=== PATIENT | female | born 1945 | race Caucasian/White ===

== ENCOUNTER 2017-01-10 23:48 | Observation (INO) | payer MEDICARE, BC ==
--- NOTE | 2017-01-11 00:08 | ED ---
General Adult HPI - General Chief complaint: Chest Pain Stated complaint: chest pain Time Seen by Provider: 01/10/17 23:51 Source: patient, RN notes reviewed, old records reviewed Mode of arrival: wheelchair Limitations: no limitations - History of Present Illness Initial comments: 72-year-old female with past medical history of hypertension, diabetes, and coronary artery disease status post stent in 2006 presents for evaluation of substernal chest pain. Patient describes the pain as tightness. States does radiate to her back and left shoulder. Pain began at rest while patient was watching television. He does admit to having a two-week history of cough which initially was treated as bronchitis, patient completed antibiotics and was getting better, cough has begun again over the past 24 hours. Patient took 2 sublingual nitroglycerin at home as well as 1 baby aspirin prior to arrival. Denies any nausea, denies diaphoresis. Patient has one episode of diarrhea. Patient's cough over the past 24 hours suspend nonproductive. No fever or chills. - Related Data Home Medications Medication Instructions Recorded Confirmed ALPRAZolam [Xanax] 0.25 mg PO BID PRN 01/11/17 01/11/17 Ascorbic Acid [Vitamin C] 500 mg PO QAM 01/11/17 01/11/17 Aspirin EC [Ecotrin Low Dose] 81 mg PO DAILY 01/11/17 01/11/17 Atorvastatin Calcium [Lipitor] 80 mg PO HS 01/11/17 01/11/17 Calcium Carbonate/Vitamin D3 1 tab PO HS 01/11/17 01/11/17 [Calcium 500-Vit D3 200 Tablet] Ezetimibe [Zetia] 10 mg PO QAM 01/11/17 01/11/17 Flaxseed Oil [Hancock-3 Flaxseed Oil] 1,000 mg PO QAM 01/11/17 01/11/17 Levothyroxine Sodium [Synthroid] 25 mcg PO QAM 01/11/17 01/11/17 Metoprolol Tartrate [Lopressor] 25 mg PO BID 01/11/17 01/11/17 Nitroglycerin Sl Tabs [Nitrostat] 0.4 mg SUBLINGUAL Q5M PRN 01/11/17 01/11/17 Quinapril HCl [Accupril] 40 mg PO QAM 01/11/17 01/11/17 Spironolactone-Hctz 25-25Mg 1 tab PO QAM 01/11/17 01/11/17 [Aldactazide 25-25Mg] metFORMIN HCL [Glucophage] 850 mg PO W/BRKFST 01/11/17 01/11/17 Allergies Allergy/AdvReac Type Severity Reaction Status Date / Time No Known Allergies Allergy Verified 01/11/17 00:00 Review of Systems ROS Statement: Those systems with pertinent positive or pertinent negative responses have been documented in the HPI. ROS Other: All systems not noted in ROS Statement are negative. Past Medical History Past Medical History: Diabetes Mellitus, Hyperlipidemia, Hypertension, Myocardial Infarction (MD) History of Any Multi-Drug Resistant Organisms: None Reported Past Surgical History: Heart Catheterization With Stent Past Psychological History: No Psychological Hx Reported Smoking Status: Never smoker Past Alcohol Use History: None Reported Past Drug Use History: None Reported General Exam Limitations: no limitations General appearance: alert, in no apparent distress Head exam: Present: atraumatic, normocephalic Eye exam: Present: normal appearance, PERRL ENT exam: Present: normal exam, normal oropharynx, mucous membranes moist Neck exam: Present: normal inspection. Absent: tenderness, meningismus Respiratory exam: Present: normal lung sounds bilaterally. Absent: respiratory distress, wheezes, rhonchi Cardiovascular Exam: Present: regular rate, normal rhythm GI/Abdominal exam: Present: soft. Absent: distended, tenderness Extremities exam: Present: normal inspection, normal capillary refill, pedal edema (Trace. Edema). Absent: calf tenderness Neurological exam: Present: alert, oriented X3. Absent: motor sensory deficit Psychiatric exam: Present: normal affect, normal mood Skin exam: Present: warm, dry. Absent: cyanosis, diaphoretic Course Vital Signs 01/10/17 23:55 Temperature 98.1 F Pulse Rate 85 Respiratory 24 Rate Blood Pressure 168/77 O2 Sat by Pulse 95 Oximetry - Reevaluation(s) Reevaluation #1: 01/11/17 03:01 Patient remains chest pain-free in the emergency department EKG Findings - EKG Comments: EKG Findings:: EKG shows first-degree AV block, ventricular rate 81, CA interval 220, QRS duration 96, QTC [address] segment elevation, no T-wave abnormality Medical Decision Making - Medical Decision Making 72-year-old female presents with substernal chest pain relieved by nitroglycerin. Patient does have history of bronchitis and cough. She does admit to coughing today. However pain she had was at rest but not associated with coughing. Patient is chest pain-free while in the emergency department. EKG shows normal sinus rhythm, nonischemic. Chest x-ray does show pneumonia consistent with her cough over the past week. She will be treated for pneumonia. Patient will also be placed in observation for serial cardiac enzymes and cardiology evaluation as I do not believe her chest pain is related solely to pneumonia and cough. Diagnosis: Chest pain, community acquired pneumonia - Lab Data Result diagrams: 01/11/17 00:00 01/11/17 00:00 Lab Results 01/11/17 01/11/17 01/11/17 Range/Units 00:00 00:00 00:00 WBC 6.6 (3.8-10.6) k/uL RBC 5.10 (3.80-5.40) m/uL Hgb 14.7 (11.4-16.0) gm/dL Hct 45.4 (34.0-46.0) % MCV 89.1 (80.0-100.0) fL MCH 28.9 (25.0-35.0) pg MCHC 32.4 (31.0-37.0) g/dL RDW 14.6 (11.5-15.5) % Plt Count 269 (150-450) k/uL Neutrophils % 60 % Lymphocytes % 29 % Monocytes % 6 % Eosinophils % 1 % Basophils % 1 % Neutrophils # 4.0 (1.3-7.7) k/uL Lymphocytes # 1.9 (1.0-4.8) k/uL Monocytes # 0.4 (0-1.0) k/uL Eosinophils # 0.1 (0-0.7) k/uL Basophils # 0.1 (0-0.2) k/uL PT (9.0-12.0) sec INR (<1.2) APTT (22.0-30.0) sec D-Dimer (<0.60) mg/L FEU Sodium 139 (137-145) mmol/L Potassium 4.0 (3.5-5.1) mmol/L Chloride 102 (98-107) mmol/L Carbon Dioxide 23 (22-30) mmol/L Anion Gap 14 mmol/L BUN 21 H (7-17) mg/dL Creatinine 0.70 (0.52-1.04) mg/dL Est GFR (MDRD) Af Amer >60 (>60 ml/min/1.73 sqM) Est GFR (MDRD) Non-Af >60 (>60 ml/min/1.73 sqM) Glucose 197 H (74-99) mg/dL Calcium 9.7 (8.4-10.2) mg/dL Magnesium 1.6 (1.6-2.3) mg/dL Total Bilirubin 2.2 H (0.2-1.3) mg/dL AST 81 H (14-36) U/L ALT 61 H (9-52) U/L Alkaline Phosphatase 156 H (38-126) U/L Total Creatine Kinase 55 (30-135) U/L CK-MB (CK-2) 1.6 (0.0-2.4) ng/mL CK-MB (CK-2) Rel Index 2.9 Troponin I <0.012 (0.000-0.034) ng/mL NT-Pro-B Natriuret Pep pg/mL Total Protein 6.9 (6.3-8.2) g/dL Albumin 4.3 (3.5-5.0) g/dL Amylase 52 (30-110) U/L Lipase 94 (23-300) U/L 01/11/17 01/11/17 Range/Units 00:00 00:00 WBC (3.8-10.6) k/uL RBC (3.80-5.40) m/uL Hgb (11.4-16.0) gm/dL Hct (34.0-46.0) % MCV (80.0-100.0) fL MCH (25.0-35.0) pg MCHC (31.0-37.0) g/dL RDW (11.5-15.5) % Plt Count (150-450) k/uL Neutrophils % % Lymphocytes % % Monocytes % % Eosinophils % % Basophils % % Neutrophils # (1.3-7.7) k/uL Lymphocytes # (1.0-4.8) k/uL Monocytes # (0-1.0) k/uL Eosinophils # (0-0.7) k/uL Basophils # (0-0.2) k/uL PT 12.8 H (9.0-12.0) sec INR 1.3 H (<1.2) APTT 25.9 (22.0-30.0) sec D-Dimer 0.26 (<0.60) mg/L FEU Sodium (137-145) mmol/L Potassium (3.5-5.1) mmol/L Chloride (98-107) mmol/L Carbon Dioxide (22-30) mmol/L Anion Gap mmol/L BUN (7-17) mg/dL Creatinine (0.52-1.04) mg/dL Est GFR (MDRD) Af Amer (>60 ml/min/1.73 sqM) Est GFR (MDRD) Non-Af (>60 ml/min/1.73 sqM) Glucose (74-99) mg/dL Calcium (8.4-10.2) mg/dL Magnesium (1.6-2.3) mg/dL Total Bilirubin (0.2-1.3) mg/dL AST (14-36) U/L ALT (9-52) U/L Alkaline Phosphatase (38-126) U/L Total Creatine Kinase (30-135) U/L CK-MB (CK-2) (0.0-2.4) ng/mL CK-MB (CK-2) Rel Index Troponin I (0.000-0.034) ng/mL NT-Pro-B Natriuret Pep 77 pg/mL Total Protein (6.3-8.2) g/dL Albumin (3.5-5.0) g/dL Amylase (30-110) U/L Lipase (23-300) U/L Disposition Clinical Impression: Chest pain, Community acquired pneumonia Disposition: ADMITTED IP TO THIS [facility] Condition: Stable Referrals: Jamaal Bustos MD [Primary Care Provider] - 1-2 days Decision to Admit Reason: Admit from EC Decision Date: 01/11/17 Decision Time: 02:30
[2017-01-11 00:21] LABS: Basophils # (A) 0.1 k/uL (0-0.2); Basophils % (A) 1 %; CH 30.2; CHCM 34.1; Eosinophils # (A) 0.1 k/uL (0-0.7); Eosinophils % (A) 1 %; HCT 45.4 % (34.0-46.0); HDW 2.85; HGB 14.7 gm/dL (11.4-16.0); Luc # (Auto) 0.24; Luc % (Auto) 4; Lymphocytes # (A) 1.9 k/uL (1.0-4.8); Lymphocytes % (A) 29 %; MCH 28.9 pg (25.0-35.0); MCHC 32.4 g/dL (31.0-37.0); MCV 89.1 fL (80.0-100.0); Monocytes # (A) 0.4 k/uL (0-1.0); Monocytes % (A) 6 %; Neutrophils % (A) 60 %; RDW 14.6 % (11.5-15.5); WBC 6.6 k/uL (3.8-10.6); WBC (Perox) 6.44
[2017-01-11 00:30] LABS: ALT 61 U/L (9-52); AST 81 U/L (14-36); Alkaline Phosphatase 156 U/L (38-126); Amylase 52 U/L (30-110); Anion Gap 14 mmol/L; Blood Urea Nitrogen 21 mg/dL (7-17); Calcium 9.7 mg/dL (8.4-10.2); Carbon Dioxide 23 mmol/L (22-30); Chloride 102 mmol/L (98-107); Glucose 197 mg/dL (74-99); Magnesium 1.6 mg/dL (1.6-2.3); Non-African American GFR(MDRD) >60 (>60 ml/min/1.73 sqM); Sodium 139 mmol/L (137-145); Total Bilirubin 2.2 mg/dL (0.2-1.3); Total Protein 6.9 g/dL (6.3-8.2)
[2017-01-11 00:34] LABS: INR 1.3 (<1.2); Partial Thromboplastin Time 25.9 sec (22.0-30.0); Prothrombin Time 12.8 sec (9.0-12.0)
[2017-01-11 00:38] LABS: Creatine Kinase 55 U/L (30-135)
[2017-01-11 00:51] LABS: Creatine Kinase MB 1.6 ng/mL (0.0-2.4); Troponin I <0.012 ng/mL (0.000-0.034)
--- NOTE | 2017-01-11 00:57 | XR ---
EXAM: XR Chest, 2 Views CLINICAL HISTORY: Reason: Chest Pain TECHNIQUE: Frontal and lateral views of the chest. COMPARISON: None. FINDINGS: Lungs: Retrocardiac atelectasis and/or infiltrates noted. Pleural space: Unremarkable. No pneumothorax. Heart: Unremarkable. No cardiomegaly. Mediastinum: Unremarkable. Bones/joints: Multilevel degenerative changes seen throughout the thoracic spine. IMPRESSION: Retrocardiac atelectasis and/or infiltrates. Clinical correlation recommended.
[2017-01-11] MEDS ORDERED: NALOXONE 0.4 MG/ML 1 ML VIAL IV PRN (02:10)
[2017-01-11] MEDS ORDERED: ACETAMINOPHEN TAB 325 MG TAB PO PRN (02:35)
[2017-01-11] MEDS ORDERED: ONDANSETRON 4 MG/2 ML VIAL IVP PRN (02:35)
[2017-01-11] MEDS ORDERED: SODIUM CHLORIDE 0.9% 1,000 ML IV SCH (02:45)
[2017-01-11] MEDS ORDERED: NITROGLYCERIN SL TABS 0.4 MG TAB SUBLINGUAL PRN (02:51)
[2017-01-11] MEDS ORDERED: ALPRAZolam 0.25 MG TAB PO PRN (02:51)
[2017-01-11] MEDS ORDERED: ASPIRIN 325 MG TAB PO STA (02:51)
[2017-01-11] MEDS ORDERED: LEVOFLOXACIN 500 MG TAB PO SCH (06:00)
[2017-01-11 06:54] LABS: Glucose,Whole Blood 187 mg/dL (75-99)
[2017-01-11] MEDS ORDERED: metFORMIN 850 MG TAB PO SCH (07:30)
[2017-01-11 07:59] LABS: Creatine Kinase 38 U/L (30-135)
[2017-01-11 08:13] LABS: Creatine Kinase MB 1.1 ng/mL (0.0-2.4); Troponin I <0.012 ng/mL (0.000-0.034)
[2017-01-11 08:15] VITALS: TEMP 98.2
[2017-01-11] MEDS ORDERED: LEVOTHYROXINE 25 MCG TAB PO SCH (09:00)
[2017-01-11] MEDS ORDERED: METOPROLOL TARTRATE 25 MG TAB PO SCH (09:00)
[2017-01-11] MEDS ORDERED: LISINOPRIL 20 MG TAB PO SCH (09:00)
[2017-01-11] MEDS ORDERED: EZETIMIBE 10 MG TAB PO SCH (09:00)
[2017-01-11] MEDS ORDERED: ASPIRIN 81 MG PO SCH (09:00)
[2017-01-11] MEDS ORDERED: SPIRONOLACTONE-HCTZ 25-25MG 1 EACH TAB PO SCH (09:00)
[2017-01-11] MEDS ORDERED: RX INFO: IV CONTRAST WAS GIVEN 1 EACH MISC MISCELLANE PRN (10:46)
[2017-01-11 11:59] LABS: Glucose,Whole Blood 225 mg/dL (75-99)
[2017-01-11 12:08] VITALS: BP 156/82; PULSE 74; RESP 18
--- NOTE | 2017-01-11 12:11 | CT ---
EXAMINATION TYPE: CT angio thoracic/abd aorta DATE OF EXAM: 01/11/2017 COMPARISON: NONE HISTORY: pain, possible dissection CT DLP: 2215.1 mGycm. Automated Exposure Control for Dose Reduction was Utilized. CONTRAST: CT scan of the thorax, abdomen and pelvis is performed without and with IV Contrast, patient injected with 100 mL of Omnipaque 350. There are 3-D post processed images. FINDINGS: The lungs are clear of consolidation. There is no sign of a pulmonary mass. I see no filling defects in the pulmonary arteries. There is no mediastinal adenopathy. There is mild atheromatous change in t he thoracic aorta. There is coronary artery calcification. Thoracic and abdominal aorta appears intac t. There is no evidence of aneurysm or dissection. There is mild atherosclerotic calcification. There is bilateral patency of the common internal and external iliac arteries. There is patency of the sup erior mesenteric artery and the celiac artery. There is bilateral patency of the renal arteries. I se e no evidence of hemodynamically significant stenosis. There is a small cyst on the posterior right k idney. There are bilateral renal parapelvic cysts. There is no retroperitoneal adenopathy. There is a large calcified gallstone. Bile ducts are not dilated. Spleen and liver appear normal. There is no r etroperitoneal adenopathy. Bladder distends smoothly. There is no sign of a pelvic mass. There is mil d lumbar levoscoliosis. IMPRESSION: Atherosclerotic vascular disease. Significant coronary artery calcification. No evidence of aortic aneurysm or dissection. Right renal cyst. Renal parapelvic cysts.
[2017-01-11 13:12] LABS: Creatine Kinase 42 U/L (30-135)
--- NOTE | 2017-01-11 13:13 | CONS ---
Radha Cote is a 72-year-old female who presented with chest discomfort going through to the back. She was lying in bed when she started experiencing discomfort that went through to the back that did not respond to 2 sublingual nitroglycerin. ECG upon admission did not show any definite ST segment abnormalities. So far she has had normal cardiac enzymes. She is a patient of Dr. Mariee and her past history includes coronary arteries disease, coronary stenting in the past and diabetes type 2, hypertension and increased BMI. Two and a half years back a stress test was normal and did not show any evidence for ischemia. She does have a history of hypertension, which is being controlled in the past. Medications in the office include Accupril, Aldactazide, aspirin, Lipitor, metformin, metoprolol, Synthroid, Xanax and Zetia. REVIEW OF SYSTEMS: No fever, chills or rigors. No cough or expectoration. No nausea, vomiting or diarrhea. No hematuria or dysuria. No strokes or seizures. No skin lesions. No musculoskeletal complaints. On examination, blood pressure is 156/82 mmHg and 123/76 mmHg. Pulse rate is in the 70s. She is afebrile, 98.2 degrees Fahrenheit. Head and neck examination is normal. Heart sounds are normal. Lungs are clear on auscultation. Extremities are warm. No edema. IMPRESSION: 1. Chest discomfort going through to the back with normal D-dimers and normal cardiac enzymes. 2. Hypertension, reasonably well controlled. 3. Coronary artery disease, status post coronary stenting. SUGGEST: CT scan of the chest to rule out aortic aneurysm. If this is normal, she may go home as well as if her cardiac enzymes are all normal. She should follow with Dr. Mariee within a week or so. [facility]
[2017-01-11 13:25] LABS: Troponin I <0.012 ng/mL (0.000-0.034)
[2017-01-11] MEDS ORDERED: ATORVASTATIN 80 MG TAB PO SCH (21:00)
--- NOTE | 2017-01-12 09:36 | HP ---
DATE OF ADMISSION: 01/11/17 CHIEF COMPLAINT: Chest pain. HISTORY OF PRESENT ILLNESS: This 72 year old female complained of pain in the lower sternal area radiating to the back. The patient stated that she was lying in bed when these symptoms occurred. She sat up and expecting it to get better. She got anxious and scared. She took two nitroglycerines about 10 minutes apart. They did give her a sting into the tongue and then she also took the baby aspirin. The symptoms due to persistence she called her son who subsequently came home. The patients symptoms are persisting and in view of this he brought her into the emergency room. In the emergency room after being given some oxygen, the patients symptoms resolved. Her EKG was normal. The patient earlier in the day had eaten some food outside so initially she thought that she was sick from that as she also had diarrheal stool when she got home. The patient has had no further diarrhea. No nausea or vomiting. She has had a cough for the past couple of days. She recently had a respiratory infection for which she was treated. The patient denies any fever or chills. No pleuritic nature chest pain. The patient denied any heartburn. Upon evaluation in the emergency room, the patient was noted to have no evidence of any arrhythmia. Her cardiac enzymes are normal. The patient admitted for observation. The ER physician was going by report of a chest x-ray which suggested infiltrate versus atelectasis at the left base. The ER physician has felt that the patient has pneumonia. There is no evidence of pneumonia. The patient has no fever. No white count. Hardly any cough and does not feel sick. Does not feel like sick like an infection. Levaquin which was started in the emergency room is being discontinued. Past medical history significant for myocardial infarction requiring stent back in 2006. The patient has had no symptoms subsequent to that. She had a stress test about 2 to 2 years ago which was unremarkable. She does follow with cardiology in the outpatient. She has history of diabetes mellitus, hypertension, hyperlipidemia and medical therapy. No history of lung disease, liver disease, kidney disease, ulcers, TB, hepatitis, rheumatic fever, no history of any myocardial infarction or CVA. PAST SURGICAL HISTORY: Negative for any major surgeries. PERSONAL HISTORY: Never a smoker, alcohol none. ALLERGIES: None known. Medications include: 1. Metformin 850 mg daily. 2. Aldactazide 25/25 one daily. 3. Accupril 40 mg daily. 4. Metoprolol 25 mg b.i.d. 5. Levothyroxine 25 mcg daily. 6. Flexeril. 7. Zetia 10 mg daily. 8. Atorvastatin 80 mg daily. 9. Aspirin 80 mg daily. 10. Vitamin C daily. 11. Xanax 0.25 b.i.d. prn 12. Tylenol. SOCIAL HISTORY: The patient is . Lives alone. FAMILY MEDICAL HISTORY: She has three sons who are in good health. Her mother had Alzheimers dementia, . She has a sister in good health. REVIEW OF SYSTEMS: NEURO: Denies any headaches. Dizziness. PSYCH: Some anxiety. Significant stress lately. CARDIAC: Present symptoms of chest pain. Denies shortness of breath. No orthopnea or PND. RESPIRATORY: No shortness of breath. Mild cough. No hemoptysis. No pleuritic chest pain. GI: Denies any nausea, vomiting, abdominal pain, heartburn. Had an episode of diarrhea. No constipation. : No symptoms of dysuria or hematuria, urgency, frequency. EXTREMITIES: Denies pain or edema. CONSTITUTIONAL: No fever or chills. PHYSICAL EXAMINATION: Pleasant female at present in no distress. Pacing around in the room. Vital signs revealed temperature 98.2, pulse 79, respirations 16, blood pressure 123/76. Pulse ox 95% on room air. HEENT: Normocephalic. NECK: Supple. Pupils are reactive. Nostrils clear. Oral cavity is moist. CHEST: Clear to auscultation and percussion. CARDIAC: Normal S1, S2 with no gallops, murmurs or rubs. Abdomen is soft. No palpable masses. Bowel sounds normal. No organomegaly. No abdominal bruits. Extremities reveals equal pulses both upper and lower extremities. No femoral bruits. No edema. Some arthritic changes. Neurologically awake, alert and oriented with well coordinated movements. Abdomen soft, bowel sounds active. Laboratory assessment: Normal CBC. INR ( ). Glucose 197. Renal function is normal. Hepatic function mild elevation with bilirubin of 2.2. AST, ALT 61 , alkaline phosphatase 156. Negative troponins. ASSESSMENT: 1. Chest pain, etiology unclear. The patient is not tender at all at the right upper quadrant. EKG reveals no acute changes. Troponins are negative. 2. History of coronary artery disease. 3. Diabetes mellitus. 4. Hypertension controlled. 5. Hyperlipidemia on medical therapy. PLAN: Continue present medical regimen. The patient is also seen by cardiology. They ordered a CT scan to rule out any ( ). The patient has low probability. Clinically. D. dimer normal. The patient will be discharged home after the CT is done. If the CT is done is negative, we will schedule the patient for outpatient stress test. Also further evaluation regarding elevation of liver enzymes to rule out any Cholelithiasis. Prognosis remains guarded. The patient's condition discussed with the patient and family. [facility]
--- NOTE | 2017-01-12 10:07 | DS ---
CHIEF COMPLAINT: Chest pain. HISTORY OF PRESENT ILLNESS: This 72 -year-old female was admitted to the hospital with lower sternal chest pain radiating to the back. No associated nausea or vomiting. Fever or chills, shortness of breath or diaphoresis. The patient symptoms have not responded to oral nitroglycerine at home. In view of this, the patient presented to the hospital. ER physicians evaluation suggested pneumonia. However, the patient has normal white count. No fever, chills. He was also concerned about the patients chest pain being cardiac pain as the patient has history of coronary artery disease. She was admitted to the hospital for observation. Cardiac enzymes are negative. The patient had no further pains. She is feeling well. She does have mild elevated liver enzymes with no tenderness in the right upper quadrant or gallbladder area. The patients pancreatic enzymes were normal. The patients repeat troponins serially were negative. The patient did undergo a CT scan of the aorta to rule out any dissection. Revealed some atherosclerotic changes, reveals evidence of calcification of the coronary arteries. The patient does have history of previous myocardial infarction and stent placement. She has a renal cyst, large gallbladder stone but no evidence of bile duct dilatation. The patient has no other significant abnormalities of adenopathy or organomegaly. There was no evidence of dissection. The patient was discharged home in stable condition. The patients condition discussed with the patients family. She will undergo a stress test as an outpatient, either the twenty first or the twenty second at the earliest availability. If the patients symptoms continue , we may consider another ultrasound of the gallbladder and proceed from there. The patients condition is stable at the time of discharge. Condition discussion with the patient and family. Prognosis remains guarded. Condition was discussed with the edge plugger. The patient will be discharged home to continue home medications. Follow-up with Dr. Bustos in one week. Stress test prior to that. FINAL DIAGNOSES: 1. Chest pain, etiology undetermined. 2. Coronary artery disease. 3. Diabetes mellitus. 4. Hypertension. 5. Obesity. 6. Hyperlipidemia, on medical therapy. 7. Cholelithiasis. 8. Atherosclerotic vascular disease of the aorta. PLAN: The patient is stable, continue present medical regimen. [facility]
== END 2017-01-11 14:27 | disposition home or self-care (01) ==
LOC: EC 23:48 → 3OBS 01-11 02:51
PROVIDERS: ADMIT Internal Medicine; ATTEND Internal Medicine
DX: R07.89 Other chest pain (principal); I25.10 Atherosclerotic heart disease of native coronary artery without angina pectoris; I10 Essential (primary) hypertension; E11.9 Type 2 diabetes mellitus without complications; N28.1 Cyst of kidney, acquired; K80.20 Calculus of gallbladder without cholecystitis without obstruction; E66.9 Obesity, unspecified; E78.5 Hyperlipidemia, unspecified; I70.0 Atherosclerosis of aorta; Z68.36 Body mass index [BMI] 36.0-36.9, adult; Z95.5 Presence of coronary angioplasty implant and graft; Z79.84 Long term (current) use of oral hypoglycemic drugs; Z79.899 Other long term (current) drug therapy; Z79.82 Long term (current) use of aspirin; I25.2 Old myocardial infarction; I44.0 Atrioventricular block, first degree; F41.9 Anxiety disorder, unspecified
CPT/HCPCS: 99285; 36415; 93005; 85379; 83880; 80053; 82150; 82550; 82553; 83690; 83735; 84484; 85025; 85610; 85730; 71020; 75635; 71275; G0378; Q9967

== ENCOUNTER → 2019-05-13 | Outpatient (CLI) | payer MEDICARE, BC ==
--- NOTE | 2019-05-13 10:23 | BD ---
EXAMINATION TYPE: Axial Bone Density DATE OF EXAM: 05/13/2019 COMPARISON: 01.02.2012 CLINICAL HISTORY: 74 YR OLD FEMALE....ICD-10 CODE: M85.80 OSTEOPOROSIS Height: 62 Weight: 193 FRAX RISK QUESTIONS: NOTHING ADDITIONAL TO ADD HERE RISK FACTORS HISTORY OF: Diet low in dairy products/other sources of calcium: YES Postmenopausal woman: YES, AT 54 YRS OLD Lost more than 2 inches in height since high school: YES Frequent falls: UNSTEADY Hyperparathyroidism: NO Adrenal Insufficiency: NO MEDICATIONS: Thyroid Medications: YES, SYNTHROID FOR ABOUT 10 YRS Additional Medications: BP MEDS, XANAX PRN, ORAL DIABETIC MEDS, STATIN FOR CHOLESTEROL, CALCIUM WITH D Additional History: HYPERTENSION, DIABETIC, CHOLESTEROL, OSTEOARTHRITIS EXAM MEASUREMENTS: Bone mineral densitometry was performed using the its learning System. Bone mineral density as measured about the Lumbar spine is: ----- L1-L4(G/cm2): 1.517 T Score Values are as follows: ----- L1: 2.1 ----- L2: 4.3 ----- L3: 3.4 ----- L4: 1.4 ----- L1-L4: 2.8 Bone mineral density has: Increased 9.7% since study of: 01.02.2012 Bone mineral density about the R hip (g/cm2): 0.745 Bone mineral density about the L hip (g/cm2): 0.736 T Score values are as follows: -----R Neck: -2.1 -----L Neck: -2.1 -----R Total: -2.1 -----L Total: -2.2 Bone mineral density has: Decreased -9.0% since study of: 01.02.2012 FRAX%s: THERE IS A 12.4% CHANCE FOR A MAJOR OSTEOPOROTIC FX AND A 2.8% FOR HIP.....PROBABILITY FOR FX IN 10 YRS TIME IMPRESSION: Osteopenia (T Score between -2.5 and -1). There is slightly increased risk of fracture and the patient may be considered for treatment. Re-Screen 2-5 years. NOTE: T-SCORE=SD OF THE YOUNG ADULT MEAN.
--- NOTE | 2019-05-14 15:04 | MM ---
Reason for exam: screening (asymptomatic). Last mammogram was performed 15 years and 9 months ago. Physical Findings: A clinical breast exam by your physician is recommended on an annual basis and results should be correlated with mammographic findings. MG Screening Mammo w CAD Bilateral CC and MLO view(s) were taken. No prior studies available for comparison. The breast tissue is heterogeneously dense. This may lower the sensitivity of mammography. Bilateral nodular densities with internal calcifications likely reflect moles although additional view are recommended. ASSESSMENT: Incomplete: need additional imaging evaluation, BI-RAD 0 RECOMMENDATION: Special view mammogram of both breasts. If lesion persists on supplemental views, image directed ultrasound is recommended. [facility] will attempt to contact patient to return for supplemental views and ultrasound if indicated.
== END | disposition home or self-care (01) ==
LOC: RADMAMWWP 09:21
PROVIDERS: ATTEND Internal Medicine
DX: Z12.31 Encounter for screening mammogram for malignant neoplasm of breast (principal); M85.80 Other specified disorders of bone density and structure, unspecified site
CPT/HCPCS: 77067; 77080

== ENCOUNTER → 2019-05-28 | Outpatient (CLI) | payer MEDICARE, BC ==
--- NOTE | 2019-05-28 11:41 | MM ---
Reason for exam: additional evaluation requested from abnormal screening. Last mammogram was performed less than 1 month ago. Physical Findings: Nurse did not find any significant physical abnormalities on exam. MG 3D Work Up W/Cad [place] Bilateral CC with magnification, LM with magnification, and LM view(s) were taken. Prior study comparison: May 13, 2019, bilateral MG screening mammo w CAD. There are scattered fibroglandular densities. The heterogeneous areas of calcifications correspond to moles which are benign. These results were verbally communicated with the patient and result sheet given to the patient on 05/28/19. ASSESSMENT: Benign, BI-RAD 2 RECOMMENDATION: Return to routine screening mammogram schedule for both breasts.
== END | disposition home or self-care (01) ==
LOC: RADMAMWWP 10:10
PROVIDERS: ATTEND Internal Medicine
DX: R92.8 Other abnormal and inconclusive findings on diagnostic imaging of breast (principal)
CPT/HCPCS: 77066; G0279; 77062

== ENCOUNTER 2020-07-21 11:19 | Observation (INO) | payer MEDICARE, BC ==
[2020-07-21] MEDS ORDERED: ASPIRIN 81 MG PO STA (11:39)
[2020-07-21] MEDS ORDERED: NITROGLYCERIN OINT 1 INCH/GM PACKET TOPICAL STA (11:39)
--- NOTE | 2020-07-21 11:42 | ED ---
General Adult HPI - General Chief complaint: Chest Pain Stated complaint: chest pain Time Seen by Provider: 07/21/20 11:25 Source: patient, RN notes reviewed Mode of arrival: ambulatory Limitations: no limitations - History of Present Illness Initial comments: Patient is a pleasant 75-year-old female presenting to the emergency Department with complaints of chest discomfort. Symptoms have been waxing and waning for a few days. Discomfort feels like tightness. Discomfort is currently 4/10. Symptoms do worsen with exertion and there is some mild associated dyspnea. No nausea or diaphoresis. No leg pain or leg swelling. No radiation. - Related Data Home Medications Medication Instructions Recorded Confirmed ALPRAZolam [Xanax] 0.25 mg PO BID PRN 01/11/17 01/11/17 Ascorbic Acid [Vitamin C] 500 mg PO QAM 01/11/17 01/11/17 Aspirin EC [Ecotrin Low Dose] 81 mg PO DAILY 01/11/17 01/11/17 Atorvastatin Calcium [Lipitor] 80 mg PO HS 01/11/17 01/11/17 Calcium Carbonate/Vitamin D3 1 tab PO HS 01/11/17 01/11/17 [Calcium 500-Vit D3 5 Mcg (200 Iu)] Ezetimibe [Zetia] 10 mg PO QAM 01/11/17 01/11/17 Flaxseed Oil [[place]-3 Flaxseed Oil] 1,000 mg PO QAM 01/11/17 01/11/17 Levothyroxine Sodium [Synthroid] 25 mcg PO QAM 01/11/17 01/11/17 Metoprolol Tartrate [Lopressor] 25 mg PO BID 01/11/17 01/11/17 Nitroglycerin Sl Tabs [Nitrostat] 0.4 mg SUBLINGUAL Q5M PRN 01/11/17 01/11/17 Quinapril HCl [Accupril] 40 mg PO QAM 01/11/17 01/11/17 Spironolactone-Hctz 25-25Mg 1 tab PO QAM 01/11/17 01/11/17 [Aldactazide 25-25 MG] metFORMIN HCL [Glucophage] 850 mg PO W/BRKFST 01/11/17 01/11/17 Previous Rx's Medication Instructions Recorded Acetaminophen Tab [Tylenol] 650 mg PO Q6HR PRN tab 01/11/17 Allergies Allergy/AdvReac Type Severity Reaction Status Date / Time No Known Allergies Allergy Verified 07/21/20 11:24 Review of Systems ROS Statement: Those systems with pertinent positive or pertinent negative responses have been documented in the HPI. ROS Other: All systems not noted in ROS Statement are negative. Constitutional: Denies: fever Eyes: Denies: eye pain ENT: Denies: ear pain Respiratory: Reports: as per HPI. Denies: cough Cardiovascular: Reports: chest pain Endocrine: Denies: fatigue Gastrointestinal: Denies: abdominal pain Genitourinary: Denies: dysuria Musculoskeletal: Denies: back pain Skin: Denies: rash Neurological: Denies: weakness Past Medical History Past Medical History: Coronary Artery Disease (CAD), Diabetes Mellitus, Hyperlipidemia, Hypertension, Myocardial Infarction ([place]), Thyroid Disorder Last Myocardial Infarction Date:: 2006 History of Any Multi-Drug Resistant Organisms: None Reported Past Surgical History: Heart Catheterization With Stent, Tubal Ligation Additional Past Surgical History / Comment(s): Cardiac stents. Past Anesthesia/Blood Transfusion Reactions: No Reported Reaction Date of Last Stent Placement:: 2006 Past Psychological History: No Psychological Hx Reported Smoking Status: Never smoker Past Alcohol Use History: None Reported Past Drug Use History: None Reported - Past Family History Father Family Medical History: Cancer Additional Family Medical History / Comment(s): lung General Exam Limitations: no limitations General appearance: alert, in no apparent distress Head exam: Present: normocephalic Eye exam: Present: normal appearance Neck exam: Present: normal inspection Respiratory exam: Present: normal lung sounds bilaterally Cardiovascular Exam: Present: regular rate, normal rhythm, normal heart sounds Expanded Peripheral pulses: 2+: Radial (R), Radial (L), Posterior Tibialis (R), Posterior Tibialis (L) GI/Abdominal exam: Present: soft. Absent: tenderness Extremities exam: Present: normal inspection. Absent: pedal edema, calf tenderness Neurological exam: Present: alert Psychiatric exam: Present: normal affect, normal mood Skin exam: Present: normal color Course Vital Signs 07/21/20 11:21 Temperature 98.6 F Pulse Rate 75 Respiratory 20 Rate Blood Pressure 167/79 O2 Sat by Pulse 97 Oximetry EKG Findings - EKG Comments: EKG Findings:: Sinus rhythm at 70. For screening AV block with MA of 210. QRS 118. QT 394. QTC 425. Left axis. Incomplete left bundle-branch block. No acute ST change. Medical Decision Making - Medical Decision Making Patient reevaluated and resting comfortably in bed.. Patient is feeling somewhat better at this time. Patient and family updated on results and plan. Case was discussed with Dr. Lyons, covering for Dr. Núñez, who will admit. - Lab Data Result diagrams: 07/21/20 11:44 07/21/20 11:44 Lab Results 07/21/20 07/21/20 07/21/20 Range/Units 11:44 11:44 11:44 WBC 7.7 (3.8-10.6) k/uL RBC 5.13 (3.80-5.40) m/uL Hgb 15.2 (11.4-16.0) gm/dL Hct 45.1 (34.0-46.0) % MCV 88.0 (80.0-100.0) fL MCH 29.6 (25.0-35.0) pg MCHC 33.6 (31.0-37.0) g/dL RDW 13.0 (11.5-15.5) % Plt Count 273 (150-450) k/uL MPV 6.4 Neutrophils % 78 % Lymphocytes % 15 % Monocytes % 5 % Eosinophils % 1 % Basophils % 0 % Neutrophils # 6.0 (1.3-7.7) k/uL Lymphocytes # 1.2 (1.0-4.8) k/uL Monocytes # 0.4 (0-1.0) k/uL Eosinophils # 0.1 (0-0.7) k/uL Basophils # 0.0 (0-0.2) k/uL PT 10.0 (9.0-12.0) sec INR 0.9 (<1.2) APTT 23.3 (22.0-30.0) sec Sodium 137 (137-145) mmol/L Potassium 4.0 (3.5-5.1) mmol/L Chloride 102 (98-107) mmol/L Carbon Dioxide 22 (22-30) mmol/L Anion Gap 13 mmol/L BUN 20 H (7-17) mg/dL Creatinine 0.74 (0.52-1.04) mg/dL Est GFR (CKD-EPI)AfAm >90 (>60 ml/min/1.73 sqM) Est GFR (CKD-EPI)NonAf 81 (>60 ml/min/1.73 sqM) Glucose 213 H (74-99) mg/dL Calcium 10.1 (8.4-10.2) mg/dL Magnesium 1.4 L (1.6-2.3) mg/dL Total Bilirubin 1.9 H (0.2-1.3) mg/dL AST 27 (14-36) U/L ALT 31 (4-34) U/L Alkaline Phosphatase 91 (38-126) U/L Troponin I (0.000-0.034) ng/mL Total Protein 7.2 (6.3-8.2) g/dL Albumin 4.4 (3.5-5.0) g/dL 07/21/20 Range/Units 11:44 WBC (3.8-10.6) k/uL RBC (3.80-5.40) m/uL Hgb (11.4-16.0) gm/dL Hct (34.0-46.0) % MCV (80.0-100.0) fL MCH (25.0-35.0) pg MCHC (31.0-37.0) g/dL RDW (11.5-15.5) % Plt Count (150-450) k/uL MPV Neutrophils % % Lymphocytes % % Monocytes % % Eosinophils % % Basophils % % Neutrophils # (1.3-7.7) k/uL Lymphocytes # (1.0-4.8) k/uL Monocytes # (0-1.0) k/uL Eosinophils # (0-0.7) k/uL Basophils # (0-0.2) k/uL PT (9.0-12.0) sec INR (<1.2) APTT (22.0-30.0) sec Sodium (137-145) mmol/L Potassium (3.5-5.1) mmol/L Chloride (98-107) mmol/L Carbon Dioxide (22-30) mmol/L Anion Gap mmol/L BUN (7-17) mg/dL Creatinine (0.52-1.04) mg/dL Est GFR (CKD-EPI)AfAm (>60 ml/min/1.73 sqM) Est GFR (CKD-EPI)NonAf (>60 ml/min/1.73 sqM) Glucose (74-99) mg/dL Calcium (8.4-10.2) mg/dL Magnesium (1.6-2.3) mg/dL Total Bilirubin (0.2-1.3) mg/dL AST (14-36) U/L ALT (4-34) U/L Alkaline Phosphatase (38-126) U/L Troponin I <0.012 (0.000-0.034) ng/mL Total Protein (6.3-8.2) g/dL Albumin (3.5-5.0) g/dL - Radiology Data Radiology results: image reviewed (Chest x-ray shows no acute process) Disposition Clinical Impression: Chest pain Disposition: ADMITTED IP TO THIS HOSP Is patient prescribed a controlled substance at d/c from ED?: No Referrals: Laurent Del Rio MD [Primary Care Provider] - 1-2 days Decision Time: 13:05
[2020-07-21 11:57] LABS: Basophils % (A) 0 %; Eosinophils # (A) 0.1 k/uL (0-0.7); Eosinophils % (A) 1 %; HCT 45.1 % (34.0-46.0); HGB 15.2 gm/dL (11.4-16.0); Lymphocytes # (A) 1.2 k/uL (1.0-4.8); Lymphocytes % (A) 15 %; MCH 29.6 pg (25.0-35.0); MCHC 33.6 g/dL (31.0-37.0); Mean Platelet Volume 6.4; Monocytes # (A) 0.4 k/uL (0-1.0); Monocytes % (A) 5 %; Neutrophils % (A) 78 %; Platelet Count 273 k/uL (150-450); RBC 5.13 m/uL (3.80-5.40); WBC 7.7 k/uL (3.8-10.6)
[2020-07-21 12:08] LABS: INR 0.9 (<1.2); Partial Thromboplastin Time 23.3 sec (22.0-30.0)
[2020-07-21 12:09] LABS: ALT 31 U/L (4-34); AST 27 U/L (14-36); African American GFR (CKD) >90 (>60 ml/min/1.73 sqM); Albumin 4.4 g/dL (3.5-5.0); Alkaline Phosphatase 91 U/L (38-126); Anion Gap 13 mmol/L; Blood Urea Nitrogen 20 mg/dL (7-17); Calcium 10.1 mg/dL (8.4-10.2); Carbon Dioxide 22 mmol/L (22-30); Chloride 102 mmol/L (98-107); Glucose 213 mg/dL (74-99); Magnesium 1.4 mg/dL (1.6-2.3); Non-African American GFR(CKD) 81 (>60 ml/min/1.73 sqM); Sodium 137 mmol/L (137-145); Total Bilirubin 1.9 mg/dL (0.2-1.3); Total Protein 7.2 g/dL (6.3-8.2)
--- NOTE | 2020-07-21 12:23 | XR ---
EXAMINATION TYPE: XR chest 2V DATE OF EXAM: 07/21/2020 COMPARISON: 01/11/2017 INDICATION: Chest pain TECHNIQUE: Frontal and lateral views of the chest are obtained. FINDINGS: The heart size is normal. The pulmonary vasculature is normal. The lungs are clear. Spondylosis is through the thoracic spine. IMPRESSION: 1. No acute pulmonary process.
[2020-07-21] MEDS ORDERED: NITROGLYCERIN SL TABS 0.4 MG TAB SUBLINGUAL PRN ×2 (13:05→16:58)
--- NOTE | 2020-07-21 14:09 | US ---
EXAMINATION TYPE: US gallbladder DATE OF EXAM: 07/21/2020 COMPARISON: CT thorax CLINICAL HISTORY: pain. Epigastric nervousness per EC patient EXAM MEASUREMENTS: Liver Length: 14.9 cm Gallbladder Wall: 0.2 cm CBD: 0.4 cm Right Kidney: 8.7 x 6.6 x 5.3 cm Pancreas: hyperechoic with tail obscured by overlying bowel gas Liver: attenuated posteriorly suggests fatty liver Gallbladder: large, non mobile shadowing gallstone seen= 2.8 x 2.4 x 1.7cm Evidence for sonographic Newton's sign: no CBD: wnl Right Kidney: right lateral cortical cyst seen inferior pole = 1.9 x 1.7 x 2.5cm. IMPRESSION: 1. Cholelithiasis. 2. Right renal cyst. 3. Mild fatty infiltration liver.
[2020-07-21] MEDS ORDERED: ACETAMINOPHEN TAB 325 MG TAB PO PRN (16:58)
[2020-07-21] MEDS ORDERED: MELATONIN 3 MG TABLET PO PRN (17:12)
[2020-07-21] MEDS ORDERED: NALOXONE 0.4 MG/ML 1 ML VIAL IV PRN (17:12)
[2020-07-21] MEDS ORDERED: ALPRAZolam 0.25 MG TAB PO PRN (17:12)
--- NOTE | 2020-07-21 17:12 | P.HPIM ---
History of Present Illness H&P Date: 07/21/20 Chief Complaint: chest pain Patient is a 75-year-old female myocardial infarction status post stenting, diabetes, hypertension, and dyslipidemia who presented to the emergency department with complaints of chest pain. In the emergency department she underwent an extensive evaluation. Her EKG demonstrated normal sinus rhythm at a rate of 78, normal intervals, normal axis, and no significant ST-T wave changes. Chest x-ray showed no acute process. Labs demonstrated a magnesium of 1.4 and bilirubin of 1.9. Initial troponin was negative. Arrangements were [facility] for admission for chest pain observation. Patient seen and examined at bedside. She states that for 4 days she has had fluttering in he chest with shortness of breath, intermittent left arm numbness. No overt chest pain. denies light headedness, presyncope, no nausea, no cough, no wheezing, no edema + CAMPA that just began Not similar to when she needed her stent took 2 nitro at 3 am and then felt more at ease due to receive second COVID shot next friday, increased anxiety Review of Systems Pertinent positives and negatives as discussed in HPI, a complete review of systems was performed and all other systems are negative. Past Medical History Past Medical History: Coronary Artery Disease (CAD), Diabetes Mellitus, Eye Disorder, Hyperlipidemia, Hypertension, Myocardial Infarction ([place]), Osteoarthritis (OA), Thyroid Disorder Additional Past Medical History / Comment(s): NIDDM type II, cholelithiasis, arthritis bilateral knees/chronic pain, murmur with , starting of bilateral cataracts, hypothyroid. Last Myocardial Infarction Date:: 2006 History of Any Multi-Drug Resistant Organisms: None Reported Past Surgical History: Heart Catheterization With Stent, Tubal Ligation Additional Past Surgical History / Comment(s): D&C Past Anesthesia/Blood Transfusion Reactions: No Reported Reaction Date of Last Stent Placement:: 2006 Past Psychological History: No Psychological Hx Reported Additional Psychological History / Comment(s): Pt is independent. She lives alone. She has 4 sons who are helpful if she needs assistance. Smoking Status: Never smoker Past Alcohol Use History: None Reported Past Drug Use History: None Reported - Past Family History Father Family Medical History: Cancer Additional Family Medical History / Comment(s): lung cancer Mother Family Medical History: No Reported History Additional Family Medical History / Comment(s): Mother was healthy and lived to be 90yrs. Medications and Allergies Home Medications Medication Instructions Recorded Confirmed Type Acetaminophen Tab [Tylenol] 650 mg PO Q6HR PRN tab 01/11/17 07/21/20 Rx Ascorbic Acid [Vitamin C] 500 mg PO HS 01/11/17 07/21/20 History Aspirin EC [Ecotrin Low Dose] 81 mg PO DAILY 01/11/17 07/21/20 History Atorvastatin Calcium [Lipitor] 80 mg PO HS 01/11/17 07/21/20 History Calcium Carbonate/Vitamin D3 1 tab PO HS 01/11/17 07/21/20 History [Calcium 500-Vit D3 5 Mcg (200 Iu)] Ezetimibe [Zetia] 10 mg PO QAM 01/11/17 07/21/20 History Flaxseed Oil [[place]-3 Flaxseed Oil] 1,000 mg PO QAM 01/11/17 07/21/20 History Metoprolol Tartrate [Lopressor] 25 mg PO DAILY 01/11/17 07/21/20 History Nitroglycerin Sl Tabs [Nitrostat] 0.4 mg SUBLINGUAL Q5M PRN 01/11/17 07/21/20 History Quinapril HCl [Accupril] 40 mg PO QAM 01/11/17 07/21/20 History Spironolactone-Hctz 25-25Mg 1 tab PO QAM 01/11/17 07/21/20 History [Aldactazide 25-25 MG] metFORMIN HCL [Glucophage] 850 mg PO BID 01/11/17 07/21/20 History Levothyroxine Sodium [Synthroid] 50 mcg PO DAILY 07/21/20 07/21/20 History Allergies Allergy/AdvReac Type Severity Reaction Status Date / Time No Known Allergies Allergy Verified 07/21/20 13:20 Physical Exam Osteopathic Statement: *. No significant issues noted on an osteopathic structural exam other than those noted in the History and Physical/Consult. Vitals: Vital Signs Temp Pulse Resp BP Pulse Ox 07/21/20 13:05 80 18 123/78 96 07/21/20 11:21 98.6 F 75 20 167/79 97 Intake and Output 07/20/20 07/21/20 07/21/20 22:59 06:59 14:59 Other: Weight 83.915 kg General: non toxic, no distress, appears at stated age Derm: warm, dry Head: atraumatic, normocephalic, symmetric Eyes: EOMI, no lid lag, anicteric sclera, pupils equal round reactive to light ENT: Nose and ears atraumatic, no thrush, no pharyngeal erythema Neck: No thyromegaly, no cervical lymphadenopathy, trachea midline, supple Mouth: no lip lesion, mucus membranes moist Cardiovascular: S1S2 reg, no murmur, positive posterior tibial pulse bilateral, no edema, capillary refill less than 2 seconds Lungs: clear to ascultation bilateral, no ronchi, no rales, no wheeze, no accessory muscle use Abdominal: soft, nontender to palpation, no guarding, no appreciable organomegaly, normal bowel sounds, negative greenfield's sign Ext: no gross muscle atrophy, muscle strength muscle strength 5 out of 5 in all 4 extremities, no contractures Neuro: CN II-XI grossly intact, light touch intact all 4 extremities, finger to nose within normal limits, Psych: Alert, oriented, appropriate affect Results CBC & Chem 7: 07/21/20 11:44 07/21/20 11:44 Labs: Abnormal Lab Results - Last 24 Hours (Table) 07/21/20 Range/Units 11:44 BUN 20 H (7-17) mg/dL Glucose 213 H (74-99) mg/dL Magnesium 1.4 L (1.6-2.3) mg/dL Total Bilirubin 1.9 H (0.2-1.3) mg/dL Chest x-ray: report reviewed US - abdomen: report reviewed Thrombosis Risk Factor Assmnt - DVT/VTE Prophylaxis DVT/VTE Prophylaxis: Mechanical Prophylaxis ordered - Choose All That Apply Any of the Below Risk Factors Present?: Yes Each Factor Represents 1 point: Obesity (BMI >25) Other Risk Factors: Yes Each Risk Factor Represents 2 Points: Age 61-74 years Other congenital or acquired thrombophilia - If yes, enter type in comment: No Thrombosis Risk Factor Assessment Total Risk Factor Score: 3 Thrombosis Risk Factor Assessment Level: Moderate Risk Assessment and Plan Assessment: Palpitations with left arm numbness -Telemetry -EKG with normal sinus rhythm -One additional troponin -Aspirin, beta casimiro History of atherosclerotic coronary artery disease status post PCI -Aspirin, beta casimiro, statin Elevated bilirubin with Cholelithiasis -Asymptomatic at this point in time -Repeat labs in a.m. -Outpatient follow-up Hypothyroidism -Synthroid -Repeat TSH DM 2 - hold metformin - SSI - Follow BS - HgB A1c 7.3 in February 2020, recheck as outpatient. Hypertension, controlled -Continue with metoprolol, BECK inhibitor -Follow blood pressures Dyslipidemia - lipitor -Cholesterol checked October 2019 with total cholesterol 126, LDL 59, and HDL 41 Chronic conditions: Cataracts Hypothyroidism Arthritis The patient is placed in observation with an anticipated less than 2 midnight stay for evaluation of palpitations. DVT prophylaxis: SCDs Discussed with: patient, nursing, son Anticipated discharge date: in AM Anticipated discharge place: home A total of 55 minutes was spent on the care of this complex patient more than 50% of the time was spent in counseling and care coordination.
[2020-07-21 17:42] LABS: Glucose,Whole Blood 125 mg/dL (75-99)
[2020-07-21] MEDS: INSULIN ASPART (NovoLOG) 100 UNIT/ML VIAL SQ SCH ×2 (18:08→20:16)
[2020-07-21] MEDS: NITROGLYCERIN OINT 1 INCH/GM PACKET TOPICAL SCH (18:08)
[2020-07-21 19:55] LABS: Glucose,Whole Blood 207 mg/dL (75-99)
[2020-07-21] MEDS ORDERED: ASCORBIC ACID 500 MG TAB PO SCH (21:00)
[2020-07-21] MEDS ORDERED: ATORVASTATIN 80 MG TAB PO SCH (21:00)
[2020-07-21] MEDS ORDERED: CALCIUM CARB-VIT D 500 MG-5 MCG TAB PO SCH (21:00)
[2020-07-22] MEDS: NITROGLYCERIN OINT 1 INCH/GM PACKET TOPICAL SCH ×3 (00:02→14:16)
[2020-07-22] MEDS ORDERED: LEVOTHYROXINE 50 MCG TAB PO SCH (06:30)
[2020-07-22 07:26] LABS: Glucose,Whole Blood 174 mg/dL (75-99)
[2020-07-22 07:27] VITALS: RESP 18
[2020-07-22] MEDS: INSULIN ASPART (NovoLOG) 100 UNIT/ML VIAL SQ SCH ×2 (08:38→14:24)
[2020-07-22] MEDS ORDERED: NON FORMULARY DRUG (Flaxseed Oil [Omega-3 Flaxseed Oil] 1,000 MG Capsule) PO SCH (09:00)
[2020-07-22] MEDS ORDERED: SPIRONOLACTONE-HCTZ 25-25MG 1 EACH TAB PO SCH (09:00)
[2020-07-22] MEDS ORDERED: EZETIMIBE 10 MG TAB PO SCH (09:00)
[2020-07-22] MEDS ORDERED: METOPROLOL TARTRATE 25 MG TAB PO SCH (09:00)
[2020-07-22] MEDS ORDERED: ASPIRIN 325 MG TAB PO SCH (09:00)
[2020-07-22] MEDS ORDERED: ASPIRIN 81 MG PO SCH (09:00)
[2020-07-22] MEDS ORDERED: lisinopriL 20 MG TAB PO SCH (09:00)
[2020-07-22 09:34] LABS: African American GFR (CKD) 84.8 (60.0-200.0); Albumin 3.9 g/dL (3.80-4.90); Albumin/Globulin Ratio 1.56 (1.60-3.17); Anion Gap 8.2 mmol/L (4.00-12.00); BUN/Creat Ratio 22.5 Ratio (12.00-20.00); Calcium 10.4 mg/dL (8.7-10.3); Carbon Dioxide 28.8 mmol/L (21.6-31.8); Globulin 2.5 g/dL (1.6-3.3); Magnesium 1.6 mg/dL (1.5-2.4); Non-African American GFR(CKD) 73.1 (60.0-200.0); Total Bilirubin 1.9 mg/dL (0.3-1.2); Total Protein 6.4 g/dL (6.2-8.2)
--- NOTE | 2020-07-22 11:14 | P.CRDCN ---
History of Present Illness Consult date: 07/22/20 Requesting physician: Melyssa Rice Reason for Consult (text): chest pain Chief complaint: palpitations History of present illness: This is a pleasant 75-year-old female patient who follows with Dr. Mariee in the office. She has a past medical history significant for CAD with prior LA and PC I of RCA in 2006, hypertension, dyslipidemia and diabetes. Presented to the emergency department with complaints of palpitations. Palpitations occurring mostly at night however have been becoming more frequent. She describes the palpitations as a fluttering in her chest. She has no associated symptoms. There appears to be no aggravating or relieving factors. She has been under an increased amount of stress. Her [id number] was recently taken a [facility] for cardiac issues and she is worried about her. She also has her second COVID vaccine scheduled for next Friday and is worried about this. She's bending experiencing some increased anxiety due to these issues. She's had no chest discomfort, dizziness, syncope, shortness of breath, PND or orthopnea. Chest x-ray on admission showed no acute pulmonary process. EKG showed sinus rhythm with first-degree AV block with no changes indicative of acute ischemia. She is maintaining sinus mechanism on a monitor and has had no further complaints of palpitations since admission. Labs showed an elevated bilirubin and she underwent ultrasound of the gallbladder which showed cholelithiasis which according to the patient is not new and was diagnosed several years ago by Dr. Bustos. Laboratory values were yielded normal CBC, sodium 137, potassium 4.0, BUN 20, creatinine 0.74, troponins negative 3 and normal TSH. Vital signs have been stable with a elevated blood pressure this morning prior to morning medication administration. Upon examination she is resting comfortably in bed. Should no further complaints of palpitations. She's had no chest discomfort, orthopnea, PND, shortness of breath, or edema. She's had no dizziness, lightheadedness or syncope. Past Medical History Past Medical History: Coronary Artery Disease (CAD), Diabetes Mellitus, Eye Disorder, Hyperlipidemia, Hypertension, Myocardial Infarction (LA), Osteoarthritis (OA), Thyroid Disorder Additional Past Medical History / Comment(s): NIDDM type II, cholelithiasis, arthritis bilateral knees/chronic pain, murmur with , starting of bilateral cataracts, hypothyroid. Last Myocardial Infarction Date:: 2006 History of Any Multi-Drug Resistant Organisms: None Reported Past Surgical History: Heart Catheterization With Stent, Tubal Ligation Additional Past Surgical History / Comment(s): D&C Past Anesthesia/Blood Transfusion Reactions: No Reported Reaction Date of Last Stent Placement:: 2006 Past Psychological History: No Psychological Hx Reported Additional Psychological History / Comment(s): Pt is independent. She lives alone. She has 4 sons who are helpful if she needs assistance. Smoking Status: Never smoker Past Alcohol Use History: None Reported Past Drug Use History: None Reported - Past Family History Father Family Medical History: Cancer Additional Family Medical History / Comment(s): lung cancer Mother Family Medical History: No Reported History Additional Family Medical History / Comment(s): Mother was healthy and lived to be 90yrs. Medications and Allergies Home Medications Medication Instructions Recorded Confirmed Type RX: Acetaminophen Tab [Tylenol] 650 mg PO Q6HR PRN tab 01/11/17 07/21/20 Rx RX: Ascorbic Acid [Vitamin C] 500 mg PO 01/11/17 07/21/20 History RX: Aspirin EC [Ecotrin Low Dose] 81 mg PO DAILY 01/11/17 07/21/20 History RX: Atorvastatin Calcium [Lipitor] 80 mg PO 01/11/17 07/21/20 History RX: Calcium Carbonate/Vitamin D3 1 tab PO 01/11/17 07/21/20 History [Calcium 500-Vit D3 5 Mcg (200 Iu)] RX: Ezetimibe [Zetia] 10 mg PO [facility] 01/11/17 07/21/20 History RX: Flaxseed Oil [[place]-3 Flaxseed 1,000 mg PO [facility] 01/11/17 07/21/20 History Oil] RX: Metoprolol Tartrate [Lopressor] 25 mg PO DAILY 01/11/17 07/21/20 History RX: Nitroglycerin Sl Tabs 0.4 mg SUBLINGUAL Q5M PRN 01/11/17 07/21/20 History [Nitrostat] RX: Quinapril HCl [Accupril] 40 mg PO QA 01/11/17 07/21/20 History RX: Spironolactone-Hctz 25-25Mg 1 tab PO [facility] 01/11/17 07/21/20 History [Aldactazide 25-25 MG] RX: metFORMIN HCL [Glucophage] 850 mg PO BID 01/11/17 07/21/20 History Levothyroxine Sodium [Synthroid] 50 mcg PO DAILY 07/21/20 07/21/20 History Allergies Allergy/AdvReac Type Severity Reaction Status Date / Time No Known Allergies Allergy Verified 07/21/20 13:20 Physical Exam Vitals: Vital Signs Temp Pulse Pulse Resp BP BP Pulse Ox 07/22/20 08:00 18 07/22/20 07:14 97 07/22/20 07:00 98.0 F 75 18 152/88 95 07/22/20 02:02 97.9 F 59 L 16 134/76 98 07/22/20 01:52 18 07/21/20 19:30 98.1 F 79 18 128/75 95 07/21/20 16:15 99.2 F 69 16 126/57 97 07/21/20 13:05 80 18 123/78 96 07/21/20 11:21 98.6 F 75 20 167/79 97 Intake and Output 07/21/20 07/22/20 07/22/20 22:59 06:59 14:59 Intake Total 350 0 0 Balance 350 0 0 Intake: Oral 350 0 0 Other: Voiding Method Toilet Toilet Toilet # Voids 1 2 PHYSICAL EXAMINATION: This is a 75-year-old female in no apparent distress at the time of my examination. VITAL SIGNS: Blood pressure 152/88, heart rate 75, respirations 18, temp 98F. Patient is 97 % on room air. HEENT: Head is atraumatic, normocephalic. Pupils are equal, round. Sclerae anicteric. Conjunctivae are clear. Mucous membranes of the mouth are moist. Neck is supple. There is no elevated jugular venous pressure. No carotid bruit is heard. CHEST EXAMINATION: Clear to auscultation bilaterally. No wheezes rales or rhonchi. Respirations even and nonlabored. HEART EXAMINATION: Heart regular, positive S1 and S2. No S3. No S4 with a systolic murmur. ABDOMEN: Soft, nontender. Bowel sounds are heard. No organomegaly noted. EXTREMITIES: 2+ peripheral pulses with no evidence of peripheral edema and no calf tenderness noted. NEUROLOGIC EXAMINATION: Patient is awake, alert and oriented x3. Results 07/21/20 11:44 07/22/20 05:59 Cardiac Enzymes 07/21/20 07/21/20 07/21/20 Range/Units 11:44 11:44 15:32 AST 27 (14-36) U/L Troponin I <0.012 <0.012 (0.000-0.034) ng/mL 07/21/20 07/22/20 Range/Units 17:18 05:59 AST 20 (14-36) U/L Troponin I <0.012 (0.000-0.034) ng/mL Coagulation 07/21/20 Range/Units 11:44 PT 10.0 (9.0-12.0) sec APTT 23.3 (22.0-30.0) sec CBC 07/21/20 Range/Units 11:44 WBC 7.7 (3.8-10.6) k/uL RBC 5.13 (3.80-5.40) m/uL Hgb 15.2 (11.4-16.0) gm/dL Hct 45.1 (34.0-46.0) % Plt Count 273 (150-450) k/uL Comprehensive Metabolic Panel 07/21/20 07/22/20 Range/Units 11:44 05:59 Sodium 137 140 (137-145) mmol/L Potassium 4.0 4.0 (3.5-5.1) mmol/L Chloride 102 103 (98-107) mmol/L Carbon Dioxide 22 28.8 (22-30) mmol/L BUN 20 H 18.0 (7-17) mg/dL Creatinine 0.74 0.8 (0.52-1.04) mg/dL Glucose 213 H 148 H (74-99) mg/dL Calcium 10.1 10.4 H (8.4-10.2) mg/dL AST 27 20 (14-36) U/L ALT 31 28 (4-34) U/L Alkaline Phosphatase 91 78 (38-126) U/L Total Protein 7.2 6.4 (6.3-8.2) g/dL Albumin 4.4 3.90 (3.5-5.0) g/dL Current Medications Generic Name Dose Route Start Last Admin Trade Name Freq PRN Reason Stop Dose Admin Acetaminophen 650 mg 07/21/20 16:58 07/21/20 20:17 Acetaminophen Tab 325 Mg Tab PO 650 mg Q6HR PRN Administration Mild Pain or Fever > 100.5 Alprazolam 0.25 mg 07/21/20 17:12 Alprazolam 0.25 Mg Tab PO Q6HR PRN Anxiety Ascorbic Acid 500 mg 07/21/20 21:00 07/21/20 20:16 Ascorbic Acid 500 Mg Tab PO 500 mg HS [facility]ORSTEN Administration Aspirin 81 mg 07/22/20 09:00 07/22/20 09:11 Aspirin 81 Mg PO Not Given DAILY TORSTEN Atorvastatin Calcium 80 mg 07/21/20 21:00 07/21/20 20:16 Atorvastatin 80 Mg Tab PO 80 mg HS [facility]OR[facility]EN Administration Calcium Carbonate 1 each 07/21/20 21:00 07/21/20 20:16 Calcium Carb-Vit D 500 Mg-5 Mcg Tab PO 1 each HS [facility]ORSTEN Administration Ezetimibe 10 mg 07/22/20 09:00 07/22/20 09:09 Ezetimibe 10 Mg Tab PO 10 mg QAM [facility] Administration HCTZ/Spironolactone 1 each 07/22/20 09:00 07/22/20 09:09 Spironolactone-Hctz 25-25mg 1 Each Tab PO 1 each QAM [facility] Administration Insulin Aspart 0 unit 07/21/20 17:30 07/22/20 08:38 Insulin Aspart (Novolog) 100 Unit/Ml Vial SQ 2 unit ACHS [facility] Administration Protocol Levothyroxine Sodium 50 mcg 07/22/20 06:30 07/22/20 06:21 Levothyroxine 50 Mcg Tab PO 50 mcg DAILY@0630 [facility] Administration Lisinopril 40 mg 07/22/20 09:00 07/22/20 09:09 Lisinopril 20 Mg Tab PO 40 mg QAM [facility] Administration Melatonin 3 mg 07/21/20 17:12 Melatonin 3 Mg Tablet PO HS PRN Insomnia Metoprolol Succinate 25 mg 07/23/20 09:00 Metoprolol Succinate (Er) 25 Mg Tab.Er.24h PO DAILY [facility]OR[facility] Naloxone HCl 0.2 mg 07/21/20 17:12 Naloxone 0.4 Mg/Ml 1 Ml Vial IV Q2M PRN Opioid Reversal Nitroglycerin 0.4 mg 07/21/20 13:05 Nitroglycerin Sl Tabs 0.4 Mg Tab SUBLINGUAL Q5M PRN Chest Pain Nitroglycerin 1 inch 02/26/21 18:00 07/22/20 06:21 Nitroglycerin Oint 1 Inch/Gm Packet TOPICAL 1 inch Q6HR [facility]ORSTEN Administration Nitroglycerin 0.4 mg 07/21/20 16:58 Nitroglycerin Sl Tabs 0.4 Mg Tab SUBLINGUAL Q5M PRN Chest Pain Sodium Chloride 10 ml 07/21/20 21:00 07/22/20 09:09 Sodium Chloride 0.9% Flush 10 Ml Syringe IV 10 ml BID TORSTEN Administration Intake and Output 07/21/20 07/22/20 07/22/20 22:59 06:59 14:59 Intake Total 350 0 0 Balance 350 0 0 Intake: Oral 350 0 0 Other: Voiding Method Toilet Toilet Toilet # Voids 1 2 07/21/20 11:44 07/22/20 05:59 Assessment and Plan Assessment: #1 symptoms of palpitations with no evidence of arrhythmia #2 history of CAD with LA and prior PCI of the RCA in 2006 #3 hypertension #4 hyperlipidemia #5 diabetes Plan: From cardiology perspective we obtain a 2-D echo with Doppler to assess cardiac structure and function. Increase the patient's activity. Depending on results of the echocardiogram and telemetry monitoring there is no significant abnormalities patient will be discharged home and follow-up as an outpatient as scheduled with Dr. Mariee. LACE SEWER note has been reviewed, I agree with a documented findings and plan of care. Patient was seen and examined.
[2020-07-22 12:06] LABS: Glucose,Whole Blood 226 mg/dL (75-99)
--- NOTE | 2020-07-22 13:57 | ECHOF ---
Referral Reason:chest pain MEASUREMENTS -------- HEIGHT: 162.6 cm WEIGHT: 83.9 kg BP: 152/88 RVIDd: 3.5 cm (< 3.3) IVSd: 1.2 cm (0.6 - 1.1) LVIDd: 4.7 cm (3.9 - 5.3) LVPWd: 1.4 cm (0.6 - 1.1) IVSs: 2.0 cm LVIDs: 2.4 cm LVPWs: 1.8 cm LAESV Index (A-L): 28.57 ml/m Ao Diam: 3.1 cm (2.0 - 3.7) AV Cusp: 1.4 cm (1.5 - 2.6) MV E Osmany: 0.58 m/s MV DecT: 285 ms MV A Osmany: 0.78 m/s MV E/A Ratio: 0.73 RAP: 5.00 mmHg RVSP: 12.76 mmHg FINDINGS -------- Sinus rhythm. This was a technically difficult study with suboptimal views. The left ventricular size is normal. There is mild concentric left ventricular hypertrophy. Overa ll left ventricular systolic function is low-normal with, an EF between 50 - 55 %. The right ventricle is mildly enlarged. Normal LA size by volume 22+/-6 ml/m2. The right atrial size is normal. 5.0mg of Lumason was utilized for enhancement of images Interatrial and interventricular septum intact. There is mild aortic valve sclerosis. Trace to mild aortic regurgitation. There is no evidence of aortic stenosis. Mild mitral annular calcification present. Mild mitral regurgitation is present. Mild tricuspid regurgitation present. Right ventricular systolic pressure is normal at < 35 mmHg. The right ventricular systolic pressure, as measured by Doppler, is 12.76mmHg. There is no pulmonic regurgitation present. The aortic root size is normal. IVC Not well visulized. There is no pericardial effusion. CONCLUSIONS -------- 1. There is mild concentric left ventricular hypertrophy. 2. Overall left ventricular systolic function is low-normal with, an EF between 50 - 55 %. 3. The right ventricle is mildly enlarged. 4. Normal LA size by volume 22+/-6 ml/m2. 5. There is mild aortic valve sclerosis. 6. Trace to mild aortic regurgitation. 7. Mild mitral regurgitation is present. 8. Mild tricuspid regurgitation present. 9. There is no pericardial effusion. ABRADING MACHINE TENDER: Zoe Clai RDCS
[2020-07-22 14:10] VITALS: BP 113/60; PULSE 60; TEMP 97.7
--- NOTE | 2020-07-22 15:54 | P.DS ---
Providers Date of admission: 07/21/20 13:05 Expected date of discharge: 07/22/20 Attending physician: Melyssa Rice Consults: 07/21/20 13:05 Consult Physician Urgent Consulting Provider: Konstantin Mariee Consult Reason/Comments: cp Do you want consulting provider notified?: Yes Primary care physician: Laurent Del Rio MD Hospital Course: 75-year-old female patient with past medical history significant for CAD with prior IL and PCI of RCA in 2006, hypertension, dyslipidemia and diabetes who presented to the emergency department with complaints of palpitations. Palpitations occurring mostly at night and have been becoming more frequent over the past several months. She describes the palpitations as a fluttering in her chest. She has mild sob with it. No chest pain. Anxiety makes it worse. She has been under an increased amount of stress. Her vbeuxb-yr-uem was recently taken a [facility] for cardiac issues and she is worried about her. She also has her second COVID vaccine scheduled for next Friday and is worried about that as well. She used to be on an anxiety medication in the past but not taking anything currently. No dizziness, syncope, PND or orthopnea. Vitals in the ER were ok. Labs showed an elevated bilirubin and she underwent ultrasound of the gallbladder which showed cholelithiasis which according to the patient is not new and was diagnosed several years ago by Dr. Bustos. CBC, BMP WNL, troponins negative 3 and normal TSH. Chest x-ray on admission showed no acute pulmonary process. EKG showed sinus rhythm with first-degree AV block with no changes indicative of acute ischemia. Patient was admitted for monitoring. On tele she was maintaining sinus rhythm. She had no further complaints of palpitations during the hospitalization. Patient was seen by cardiology who recommended repeating the troponin which was negative, echocardiogram was also done and that showed mild LVH with EF 50-55%. Patient's symptoms are most likely secondary to increasing anxiety especially with changes in the patient's social life and that she lives alone. I advised her to follow- up with her primary care physician to find out if she needs to be started on antidepressant in case her anxiety continues. For now she'll be discharged home in a stable condition. Plan - Discharge Summary Discharge Rx Participant: No New Discharge Prescriptions: Continue Ascorbic Acid [Vitamin C] 500 mg PO HS Calcium Carbonate/Vitamin D3 [Calcium 500-Vit D3 5 Mcg (200 Iu)] 1 tab PO HS Metoprolol Tartrate [Lopressor] 25 mg PO DAILY Ezetimibe [Zetia] 10 mg PO QAM Spironolactone-Hctz 25-25Mg [Aldactazide 25-25 MG] 1 tab PO QAM Quinapril HCl [Accupril] 40 mg PO QAM Atorvastatin Calcium [Lipitor] 80 mg PO HS metFORMIN HCL [Glucophage] 850 mg PO BID Aspirin EC [Ecotrin Low Dose] 81 mg PO DAILY Nitroglycerin Sl Tabs [Nitrostat] 0.4 mg SUBLINGUAL Q5M PRN PRN Reason: Chest Pain Flaxseed Oil [[place]-3 Flaxseed Oil] 1,000 mg PO QAM Acetaminophen Tab [Tylenol] 650 mg PO Q6HR PRN tab PRN Reason: Mild Pain Or Fever > 100.5 Levothyroxine Sodium [Synthroid] 50 mcg PO DAILY Discharge Medication List Acetaminophen Tab [Tylenol] 650 mg PO Q6HR PRN tab 01/11/17 [Rx] Ascorbic Acid [Vitamin C] 500 mg PO HS 01/11/17 [History] Aspirin EC [Ecotrin Low Dose] 81 mg PO DAILY 01/11/17 [History] Atorvastatin Calcium [Lipitor] 80 mg PO HS 01/11/17 [History] Calcium Carbonate/Vitamin D3 [Calcium 500-Vit D3 5 Mcg (200 Iu)] 1 tab PO HS 01/11/17 [History] Ezetimibe [Zetia] 10 mg PO QAM 01/11/17 [History] Flaxseed Oil [[place]-3 Flaxseed Oil] 1,000 mg PO QAM 01/11/17 [History] Metoprolol Tartrate [Lopressor] 25 mg PO DAILY 01/11/17 [History] Nitroglycerin Sl Tabs [Nitrostat] 0.4 mg SUBLINGUAL Q5M PRN 01/11/17 [History] Quinapril HCl [Accupril] 40 mg PO QAM 01/11/17 [History] Spironolactone-Hctz 25-25Mg [Aldactazide 25-25 MG] 1 tab PO QAM 01/11/17 [History] metFORMIN HCL [Glucophage] 850 mg PO BID 01/11/17 [History] Levothyroxine Sodium [Synthroid] 50 mcg PO DAILY 07/21/20 [History] Follow up Appointment(s)/Referral(s): Laurent Del Rio MD [Primary Care Provider] - 1-2 days
[2020-07-23] MEDS ORDERED: METOPROLOL SUCCINATE (ER) 25 MG TAB.ER.24H PO SCH (09:00)
== END 2020-07-22 16:40 | disposition home or self-care (01) ==
LOC: EC 11:19 → 6NMEDSUR 13:05
PROVIDERS: ADMIT Internal Medicine; ATTEND Internal Medicine
DX: R07.89 Other chest pain (principal); R00.2 Palpitations; F41.9 Anxiety disorder, unspecified; I25.10 Atherosclerotic heart disease of native coronary artery without angina pectoris; I44.0 Atrioventricular block, first degree; E78.5 Hyperlipidemia, unspecified; I10 Essential (primary) hypertension; K80.20 Calculus of gallbladder without cholecystitis without obstruction; N28.1 Cyst of kidney, acquired; K76.0 Fatty (change of) liver, not elsewhere classified; R20.0 Anesthesia of skin; E03.9 Hypothyroidism, unspecified; E11.36 Type 2 diabetes mellitus with diabetic cataract; M17.0 Bilateral primary osteoarthritis of knee; G89.29 Other chronic pain; E66.9 Obesity, unspecified; Z68.31 Body mass index [BMI] 31.0-31.9, adult; F43.9 Reaction to severe stress, unspecified; Z20.828 Contact with and (suspected) exposure to other viral communicable diseases; Z79.82 Long term (current) use of aspirin; Z79.890 Hormone replacement therapy; Z79.84 Long term (current) use of oral hypoglycemic drugs; Z79.899 Other long term (current) drug therapy; I25.2 Old myocardial infarction; Z95.5 Presence of coronary angioplasty implant and graft; Z98.51 Tubal ligation status; Z80.1 Family history of malignant neoplasm of trachea, bronchus and lung
CPT/HCPCS: 93005 ×2; 99285; 36415; 94760; 80053 ×2; 84443; 83735 ×2; 84484; 85025; 85610; 85730; 87635; 71046; 76705; G0378 ×2; C8929; Q9950; 93306

== ENCOUNTER → 2021-02-27 | Outpatient (CLI) | payer MEDICARE, BC ==
--- NOTE | 2021-02-27 11:31 | MM ---
Reason for exam: screening (asymptomatic). Last mammogram was performed 1 year and 9 months ago. Physical Findings: A clinical breast exam by your physician is recommended on an annual basis and results should be correlated with mammographic findings. MG 3D Screening Mammo W/Cad Bilateral CC and MLO view(s) were taken. Prior study comparison: May 13, 2019, bilateral MG screening mammo w CAD. There are scattered fibroglandular densities. Finding #1: There is a 9 mm obscured oval mass in the upper outer quadrant, middle position of the left breast. Finding #2: There are typically benign round, linear calcifications in both breasts. Nodularity anterior subareolar right breast. Skin lesion posterior left breast with calcification. ASSESSMENT: Incomplete: need additional imaging evaluation, BI-RAD 0 RECOMMENDATION: Ultrasound of both breasts. [facility] will attempt to contact patient to return for ultrasound.
== END | disposition home or self-care (01) ==
LOC: RADMAMWWP 07:12
PROVIDERS: ATTEND Internal Medicine
DX: Z12.31 Encounter for screening mammogram for malignant neoplasm of breast (principal)
CPT/HCPCS: 77063; 77067

== ENCOUNTER → 2021-03-02 | Outpatient (CLI) | payer MEDICARE, BC ==
--- NOTE | 2021-03-06 09:05 | USB ---
Reason for exam: additional evaluation requested from abnormal screening. Physical Findings: Nurse Summary: all soft, nodular, movable (nurse ts). US Breast Workup Limited [place] Right limited breast ultrasound including focal area of concern, retroareolar and axilla demonstrates a 0.4 x 0.2 x 0.5cm mixed lesion at 10 o'clock 6 month follow up recommended and duct ectasia at the posterior nipple may correspond to the mammographic finding. Left limited breast ultrasound including focal area of concern, retroareolar and axilla demonstrates a 0.4 x 0.4cm benign calcification at 12 o'clock. Scanned right upper outer quadrant 9-12 o'clock. Scanned left upper outer quadrant 12-3 o'clock. These results were verbally communicated with the patient and result sheet given to the patient on 03/02/21. ASSESSMENT: Probably benign, BI-RAD 3 RECOMMENDATION: Follow-up diagnostic mammogram of both breasts in 6 months. Ultrasound of the right breast in 6 months. (10 o'clock)
== END | disposition home or self-care (01) ==
LOC: RADUSWWP 14:58
PROVIDERS: ATTEND Internal Medicine
DX: R92.1 Mammographic calcification found on diagnostic imaging of breast (principal)

== ENCOUNTER → 2021-09-21 | Outpatient (CLI) | payer MEDICARE, BC ==
--- NOTE | 2021-09-21 11:21 | MM ---
Reason for exam: follow-up at short interval from prior study. Last mammogram was performed 7 months ago. History: Patient is postmenopausal. Physical Findings: A clinical breast exam by your physician is recommended on an annual basis and results should be correlated with mammographic findings. MG 3D Diag Mammo W/Cad [place] Bilateral CC and MLO view(s) were taken. XCCL view(s) were taken of the right breast. Prior study comparison: February 27, 2021, bilateral MG 3d screening mammo w/cad. May 28, 2019, bilateral MG 3d work up w/cad [place]. The breast tissue is heterogeneously dense. This may lower the sensitivity of mammography. There are benign appearing round, linear calcifications bilaterally. There is no discrete abnormality. Results were given to the patient verbally at the time of the exam. ASSESSMENT: Benign, BI-RAD 2 RECOMMENDATION: Routine screening mammogram of both breasts in 1 year.
== END | disposition home or self-care (01) ==
LOC: RADMAMWWP 10:05
PROVIDERS: ATTEND Internal Medicine
DX: R92.1 Mammographic calcification found on diagnostic imaging of breast (principal); Z78.0 Asymptomatic menopausal state
CPT/HCPCS: 77066; G0279; 77062

== ENCOUNTER → 2022-06-05 | Outpatient (CLI) | payer MEDICARE, BC ==
--- NOTE | 2022-06-05 13:55 | XR ---
EXAMINATION TYPE: XR Hip Complete LT DATE OF EXAM: 06/05/2022 12:29 PM INDICATION: Patient age:Female; 77 years old; Reason for study: R29.6 REPEATED FALLS M25.552 PAIN IN LEFT HIP; COMPARISON: None. TECHNIQUE: The left hip was examined in the frontal and lateral projections and a AP pelvis. FINDINGS: There is a left subcapital fracture line visualized. There is mild valgus impaction. No additional fr actures identified. Findings communicated to Dr. Paulino Puente MD on 06/05/2022 1:[address] Rod Ramos. IMPRESSION: Valgus impacted Acute left subcapital femoral neck fracture.
== END | disposition home or self-care (01) ==
LOC: RADXRMAIN 12:06
PROVIDERS: ATTEND Family Medicine
DX: S72.012A Unspecified intracapsular fracture of left femur, initial encounter for closed fracture (principal); R29.6 Repeated falls
CPT/HCPCS: 73502

== ENCOUNTER 2022-06-06 10:00 | Inpatient (IN) | payer MEDICARE, BC ==
[2022-06-06] MEDS ORDERED: HYDROmorphone 0.5 MG/0.5 ML SYRINGE IVP PRN (10:35)
[2022-06-06] MEDS ORDERED: ONDANSETRON 4 MG/2 ML VIAL IVP PRN (10:35)
[2022-06-06] MEDS ORDERED: NALOXONE 0.4 MG/ML 1 ML VIAL IV PRN (10:35)
--- NOTE | 2022-06-06 10:35 | ED ---
Lower Extremity Injury HPI - General Chief Complaint: Extremity Injury, Lower Stated Complaint: L. Leg/Hip Injury Time Seen by Provider: 06/06/22 10:06 Source: patient, RN notes reviewed Mode of arrival: ambulatory Limitations: physical limitation - History of Present Illness Initial Comments: 77-year-old female presents emergency Department chief complaint of left hip pain. Patient had a fall 2 weeks ago had outpatient x-ray showing fracture. Patient states she was going of some sepsis and states that she fell backwards onto her left side. Patient states she's been using a walker to keep the weight off her leg. Patient states there is still painful. Denies any head injury no loss conscious denies any blood thinners. - Related Data Home Medications Medication Instructions Recorded Confirmed Ascorbic Acid [Vitamin C] 500 mg PO HS 01/11/17 07/21/20 Aspirin EC [Ecotrin Low Dose] 81 mg PO DAILY 01/11/17 07/21/20 Atorvastatin Calcium [Lipitor] 80 mg PO HS 01/11/17 07/21/20 Calcium Carbonate/Vitamin D3 1 tab PO HS 01/11/17 07/21/20 [Calcium 500-Vit D3 5 Mcg (200 Iu)] Ezetimibe [Zetia] 10 mg PO QAM 01/11/17 07/21/20 Metoprolol Tartrate [Lopressor] 25 mg PO DAILY 01/11/17 07/21/20 Nitroglycerin Sl Tabs [Nitrostat] 0.4 mg SUBLINGUAL Q5M PRN 01/11/17 07/21/20 Quinapril HCl [Accupril] 40 mg PO QAM 01/11/17 07/21/20 Spironolactone-Hctz 25-25Mg 1 tab PO QAM 01/11/17 07/21/20 [Aldactazide 25-25 MG] flaxseed oiL [[place]-3 Flaxseed Oil] 1,000 mg PO QAM 01/11/17 07/21/20 metFORMIN HCL [Glucophage] 850 mg PO BID 01/11/17 07/21/20 Levothyroxine Sodium [Synthroid] 50 mcg PO DAILY 07/21/20 07/21/20 Previous Rx's Medication Instructions Recorded Acetaminophen Tab [Tylenol] 650 mg PO Q6HR PRN tab 01/11/17 Allergies Allergy/AdvReac Type Severity Reaction Status Date / Time No Known Allergies Allergy Verified 06/06/22 10:06 Review of Systems ROS Statement: Those systems with pertinent positive or pertinent negative responses have been documented in the HPI. ROS Other: All systems not noted in ROS Statement are negative. Past Medical History Past Medical History: Coronary Artery Disease (CAD), Diabetes Mellitus, Eye Disorder, Hyperlipidemia, Hypertension, Myocardial Infarction ([place]), Osteoarthritis (OA), Thyroid Disorder Additional Past Medical History / Comment(s): NIDDM type II, cholelithiasis, arthritis bilateral knees/chronic pain, murmur with , starting of bilateral cataracts, hypothyroid. Last Myocardial Infarction Date:: 2006 History of Any Multi-Drug Resistant Organisms: None Reported Past Surgical History: Heart Catheterization With Stent, Tubal Ligation Additional Past Surgical History / Comment(s): D&C Past Anesthesia/Blood Transfusion Reactions: No Reported Reaction Date of Last Stent Placement:: 2006 Past Psychological History: No Psychological Hx Reported Smoking Status: Never smoker Past Alcohol Use History: None Reported Past Drug Use History: None Reported - Past Family History Father Family Medical History: Cancer Additional Family Medical History / Comment(s): lung cancer Mother Family Medical History: No Reported History Additional Family Medical History / Comment(s): Mother was healthy and lived to be 90yrs. General Exam Limitations: no limitations General appearance: alert, in no apparent distress Head exam: Present: atraumatic, normocephalic, normal inspection Eye exam: Present: normal appearance, PERRL, EOMI. Absent: scleral icterus, conjunctival injection, periorbital swelling Neck exam: Present: normal inspection, full ROM. Absent: tenderness, meningismus, lymphadenopathy Respiratory exam: Present: normal lung sounds bilaterally. Absent: respiratory distress, wheezes, rales, rhonchi, stridor Cardiovascular Exam: Present: regular rate, normal rhythm, normal heart sounds. Absent: systolic murmur, diastolic murmur, rubs, gallop, clicks Extremities exam: Present: other (Left left hip tenderness, pain with range of motion neurovascular intact) Neurological exam: Present: alert Skin exam: Present: warm, dry, intact, normal color. Absent: rash Course Vital Signs 06/06/22 10:01 Temperature 98.3 F Pulse Rate 66 Respiratory 18 Rate Blood Pressure 143/78 O2 Sat by Pulse 97 Oximetry Medical Decision Making - Medical Decision Making Was pt. sent in by a medical professional or institution (MAVERICK Miranda, M[employer] SERVICES MANAGER, urgent care, hospital, or [facility]...) When possible be specific @ -Primary care physician Did you speak to anyone other than the patient for history (EMS, parent, family, police, friend...)? What history was obtained from this source @ -No Did you review nursing and triage notes (agree or disagree)? Why? @ -I reviewed and agree with nursing and triage notes Were old charts reviewed (outside hosp., previous admission, EMS record, old EKG, old radiological studies, urgent care reports/EKG's, [facility] records)? Report findings @ -I did review hip x-ray performed outpatient Differential Diagnosis (chest pain, altered mental status, abdominal pain women, abdominal pain men, vaginal bleeding, weakness, fever, dyspnea, syncope, headache, dizziness, GI bleed, back pain, seizure, CVA, palpatations, mental health)? @ [not applicable] EKG interpreted by me (3pts min.). @ [As above] X-rays interpreted by me (1pt min.). @ -Left hip x-ray shows subcapital hip fracture CT interpreted by me (1pt min.). @ [None done] U/S interpreted by me (1pt. min.). @ [None done] What testing was considered but not performed or refused? (CT, X-rays, U/S, labs)? Why? @ -Considered CAT scan though case discussed with orthopedics, felt not ne cessary What meds were considered but not given or refused? Why? @ [None Did you discuss the management of the patient with other professionals (professionals i.e. MAVERICK Miranda, M[employer]IA SERVICES MANAGER, lab, RT, psych nurse, oncology social worker, needle control cheniller, teacher, loans officer, director of casework department)? Give summary @ -Orthopedics Dr. Batres and hospitalist given further treatment and management Was smoking cessation discussed for >3mins.? @ [No] Was critical care preformed (if so, how long)? @ [No] Were there social determinants of health that impacted care today? How? (Homelessness, low income, unemployed, alcoholism, drug addiction, transportation, low edu. Level, literacy, decrease access to med. care, alf, rehab)? @ [No] Was there de-escalation of care discussed even if they declined (Discuss DNR or withdrawal of care, Hospice)? DNR status @ [No] What co-morbidities impacted this encounter? (DM, HTN, Smoking, COPD, CAD, Cancer, CVA, ARF, Chemo, Hep., AIDS, mental health diagnosis, sleep apnea, morbid obesity)? @ -Hypertension Was patient admitted / discharged? Hospital course, mention meds given and route, prescriptions, significant lab abnormalities, going to OR and other pertinent info. @ -Admitted - I did have discussion with orthopedics recommends the patient be admitted to medicine patient will require further surgery. Undiagnosed new problem with uncertain prognosis? @ [N] Drug Therapy requiring intensive monitoring for toxicity (Heparin, Nitro, Insulin, Cardizem)? @ [N] Were any procedures done? @ [N] Diagnosis/symptom? @ -Left subcapital hip fracture Acute, or Chronic, or Acute on Chronic? @ -Acute Uncomplicated (without systemic symptoms) or Complicated (systemic symptoms)? @ -Uncomplicated Side effects of treatment? @ [N] Exacerbation, Progression, or Severe Exacerbation? @ [N] Poses a threat to life or bodily function? How? (Chest pain, [place], NH, pneumonia, PE, COPD, DKA, ARF, appy, cholecystitis, CVA, Diverticulitis, Homicidal, Suicidal, threat to staff... and all critical care pts) @ [N] Disposition Clinical Impression: Closed left hip fracture Disposition: ADMITTED IP TO THIS [facility] Condition: Stable Referrals: Paulino Puente MD [Primary Care Provider] - 1-2 days Time of Disposition: 10:35
[2022-06-06 10:48] LABS: Basophils % (A) 0 %; Eosinophils # (A) 0.1 k/uL (0-0.7); Eosinophils % (A) 1 %; HCT 43.2 % (34.0-46.0); Lymphocytes # (A) 0.9 k/uL (1.0-4.8); Lymphocytes % (A) 12 %; MCH 28.9 pg (25.0-35.0); MCHC 32.5 g/dL (31.0-37.0); Mean Platelet Volume 6.8; Monocytes # (A) 0.3 k/uL (0-1.0); Monocytes % (A) 4 %; Neutrophils # (A) 6.6 k/uL (1.3-7.7); Neutrophils % (A) 82 %; Platelet Count 357 k/uL (150-450); RBC 4.85 m/uL (3.80-5.40); RDW 13.1 % (11.5-15.5)
[2022-06-06 11:02] LABS: INR 0.9 (<1.2); Partial Thromboplastin Time 23.2 sec (22.0-30.0); Prothrombin Time 10.1 sec (9.0-12.0)
[2022-06-06 11:03] LABS: ALT 35 U/L (4-34); AST 31 U/L (14-36); African American GFR (CKD) >90 (>60 ml/min/1.73 sqM); Albumin 4.5 g/dL (3.5-5.0); Alkaline Phosphatase 108 U/L (38-126); Anion Gap 10 mmol/L; Blood Urea Nitrogen 20 mg/dL (7-17); Carbon Dioxide 24 mmol/L (22-30); Chloride 105 mmol/L (98-107); Glucose 220 mg/dL (74-99); Non-African American GFR(CKD) 87 (>60 ml/min/1.73 sqM); Potassium 4.4 mmol/L (3.5-5.1); Sodium 139 mmol/L (137-145); Total Bilirubin 1.6 mg/dL (0.2-1.3); Total Protein 7.4 g/dL (6.3-8.2)
--- NOTE | 2022-06-06 11:50 | XR ---
EXAMINATION TYPE: XR chest 1V DATE OF EXAM: 06/06/2022 CLINICAL HISTORY: Presurgical study. Left hip fracture. TECHNIQUE: Single AP portable upright view of the chest is obtained. COMPARISON: Chest x-ray from July 21, 2020 FINDINGS: Lungs remain clear without pleural effusion or pneumothorax seen bilaterally. Cardiac silh ouette size is at the upper limits of normal on current study with atherosclerotic change in the aort ic knob. Underlying scoliosis in the upper lumbar spine is present. Osseous structures are deminerali zed. Overlying bra strap noted. IMPRESSION: No acute process. No significant change from prior.
[2022-06-06 12:08] LABS: Appearance,Urine Clear (Clear); Bacteria,Urine Rare /hpf; Bilirubin,Urine Negative (Negative); Blood,Urine Negative (Negative); Color,Urine Yellow; Glucose,Urine (UA) Negative (Negative); Hyaline Casts,Urine 16 /lpf (0-2); Ketones,Urine Trace (Negative); Leukocyte Esterase,Urine Negative (Negative); Mucus,Urine Few /hpf; Nitrite,Urine Negative (Negative); Protein,Urine 1+ (Negative); RBC,Urine 2 /hpf (0-5); Specific Gravity,Urine 1.038 (1.001-1.035); Squamous Epithelial Cell,Urine <1 /hpf (0-4); WBC,Urine 3 /hpf (0-5)
--- NOTE | 2022-06-06 13:22 | P.CNOR ---
History of Present Illness - [facility] Consult date: 06/06/22 History of present illness: Patient is a 77-year-old female who presents to the emergency department and Florentin Jackson earlier today with chief complaint of left hip pain. Patient was seen at bedside this afternoon with her son present during encounter. Patient says about 2 weeks ago she was at home when she went to step up on to her porch she caught her left foot on the step and fell landing onto her left side. Patient denies loss of consciousness/hitting her head at all during the fall. Patient says over the past couple weeks she has been able to bear weight and manage walking around her house using a walker. She says she has only been taking Tylenol as needed for pain. Patient says she normally does not use a walker/cane to ambulate. Patient says she is not on any blood thinners. Patient states that yesterday she did go see her primary care provider where x- rays the left hip was performed and did reveal nondisplaced left hip femoral neck fracture. Patient states the pain is mostly located to the left hip/groin. Patient denies any radiation of pain. Patient denies any other locations of pain. Patient denies any other previous orthopedic surgeries. Patient denies chest pain, fever, shortness of breath, nausea, vomiting, change in vision, loss of bowel/bladder control. Past Medical History Past Medical History: Coronary Artery Disease (CAD), Diabetes Mellitus, Eye Disorder, Hyperlipidemia, Hypertension, Myocardial Infarction ([place]), Osteoarthritis (OA), Thyroid Disorder Additional Past Medical History / Comment(s): NIDDM type II, cholelithiasis, arthritis bilateral knees/chronic pain, murmur with , starting of bilateral cataracts, hypothyroid. Last Myocardial Infarction Date:: 2006 History of Any Multi-Drug Resistant Organisms: None Reported Past Surgical History: Heart Catheterization With Stent, Tubal Ligation Additional Past Surgical History / Comment(s): D&C Past Anesthesia/Blood Transfusion Reactions: No Reported Reaction Date of Last Stent Placement:: 2006 Past Psychological History: No Psychological Hx Reported Smoking Status: Never smoker Past Alcohol Use History: None Reported Past Drug Use History: None Reported - Past Family History Father Family Medical History: Cancer Additional Family Medical History / Comment(s): lung cancer Mother Family Medical History: No Reported History Additional Family Medical History / Comment(s): Mother was healthy and lived to be 90yrs. Medications and Allergies Home Medications Medication Instructions Recorded Confirmed Type Ascorbic Acid [Vitamin C] 500 mg PO HS 01/11/17 06/06/22 History Aspirin EC [Ecotrin Low Dose] 81 mg PO DAILY 01/11/17 06/06/22 History Atorvastatin Calcium [Lipitor] 80 mg PO HS 01/11/17 06/06/22 History Ezetimibe [Zetia] 10 mg PO DAILY 01/11/17 06/06/22 History Metoprolol Tartrate [Lopressor] 12.5 mg PO BID 01/11/17 06/06/22 History Nitroglycerin Sl Tabs [Nitrostat] 0.4 mg SUBLINGUAL Q5M PRN 01/11/17 06/06/22 History Quinapril HCl [Accupril] 40 mg PO HS 01/11/17 06/06/22 History Spironolactone-Hctz 25-25Mg 1 tab PO DAILY 01/11/17 06/06/22 History [Aldactazide 25-25 MG] flaxseed oiL [[place]cent-3 Flaxseed Oil] 1,000 mg PO DAILY 01/11/17 06/06/22 History Levothyroxine Sodium [Synthroid] 50 mcg PO [id number] 07/21/20 06/06/22 History Acetaminophen Tab [Tylenol Tab] 500 mg PO Q6H PRN 06/06/22 06/06/22 History Calcium 1,200mg/ Vitamin D3 125 Mcg 1 tab PO HS 06/06/22 06/06/22 History Cholecalciferol [Vitamin D3 (25 50 mcg PO DAILY 06/06/22 06/06/22 History Mcg = 1000 Iu)] Levothyroxine Sodium [Synthroid] 100 mcg PO OLSEN 06/06/22 06/06/22 History Magnesium 250 mg PO DAILY 06/06/22 06/06/22 History metFORMIN HCL 1,000 mg PO Q12H 06/06/22 06/06/22 History Allergies Allergy/AdvReac Type Severity Reaction Status Date / Time No Known Allergies Allergy Verified 06/06/22 11:27 Physical Examination Inspection: Negative for any open fracture, significant erythema/ecchymosis/ulcers. Sensation: Sensation is equal, symmetric, bilaterally intact throughout the upper and lower extremities on exam. Palpation: There is a fair amount of tenderness to palpation along the left groin/left lateral hip. Nontender to palpation throughout rest of exam. Range of motion: Patient has full range of motion in right lower extremity and bilateral upper extremities on exam. Patient has full range of motion and left lower extremity and ankle dorsi/plantar flexion. There is some limited range of motion in the left knee in flexion and extension and left hip in flexion/extension due to pain/weakness. Motor: 4-/5 in resisted left hip flexion/extension and left knee flexion/extension. 5/5 in all major motor groups in bilateral upper extremities. 4+/5 in all major motor groups in right lower extremity and and right ankle dorsi/plantar flexion. Neurovascular status: Radial pulses intact, 2+ bilaterally. Capillary refill under 3 seconds in digits upper extremities. DP pulses palpable, although weak Special tests: Negative Homans bilaterally. Results - Labs Labs: Abnormal Lab Results - Last 24 Hours (Table) 06/06/22 06/06/22 06/06/22 Range/Units 10:39 10:39 10:39 Lymphocytes # 0.9 L (1.0-4.8) k/uL BUN 20 H (7-17) mg/dL Glucose 220 H (74-99) mg/dL Total Bilirubin 1.6 H (0.2-1.3) mg/dL ALT 35 H (4-34) U/L Ur Specific [place] 1.038 H (1.001-1.035) Urine Protein 1+ H (Negative) Urine Ketones Trace H (Negative) Urine Bacteria Rare H (None) /hpf Hyaline Casts 16 H (0-2) /lpf Urine Mucus Few H (None) /hpf H & H 06/06/22 Range/Units 10:39 Hgb 14.0 (11.4-16.0) gm/dL Hct 43.2 (34.0-46.0) % Coagulation 06/06/22 Range/Units 10:39 INR 0.9 (<1.2) Result Diagrams: 06/06/22 10:39 06/06/22 10:39 Assessment and Plan Assessment: 1. Left hip nondisplaced femoral neck fracture Plan: 1 left hip nondisplaced femoral neck fracture - x-ray of the left hip performed yesterday did reveal a nondisplaced left hip femoral neck fracture. Patient stable at bedside this morning in the emergency department. A computed tomography scan of the left hip has been ordered for further evaluation of the injury. At this time we are recommending surgical intervention in the form of ORIF left hip with percutaneous screws. Patient is to be nothing by mouth at midnight tonight. Surgery scheduled for tomorrow afternoon. With hold thinners. Pain medication as needed. Nonweightbearing left lower extremity. We'll continue to follow patient during her stay in hospital 2. Appreciate medical management. Patient does need medical clearance for surgery 3. Pain management - tylenol 4. DVT prophylaxis - with hold thinners at this time 5. GI prophylaxis - senna 6. PT/OT - nonweightbearing left lower extremity 7. Encourage incentive spirometer use 8. Appreciate consult Time with Patient: Less than 30
--- NOTE | 2022-06-06 13:42 | CT ---
EXAMINATION TYPE: CT hip LT wo con DATE OF EXAM: 06/06/2022 COMPARISON: Left hip x-ray from yesterday. HISTORY: Left hip fracture CT DLP: 850.4 mGycm Automated exposure control for dose reduction was used. FINDINGS: Corresponding to x-ray there is slight cortical step-off near the head neck junction of the left prox imal femur without definitive lucent line. Osseous structures are somewhat demineralized. Mild to mod erate axial joint space loss is present. Subtle horizontal sclerosis is seen. Cannot exclude nondispl aced subcapital fracture especially if patient has nonweightbearing. Consider MRI to further evaluate based on clinical correlation. Tiny sclerotic focus in the left femoral head cortical image 57 favor s benign bone island. Remainder of the visualized pelvis shows no acute displaced fracture. Pubic symphysis is intact with narrowing and subchondral cystic change. There is no concerning bowel dilatation. There is mild calci fied plaque of the aorta extending into branch vessels. Small uterus corresponds to patient's postmen opausal age. Sears catheter decompresses bladder. No free fluid in the pelvis. IMPRESSION: As above. Cannot exclude nondisplaced subcapital fracture in the osteopenic patient with some cortical step off. Need to further investigate with MRI should be based on degree of clinical hernandez spicion, is patient unable to ambulate or weight-bear.
[2022-06-06] MEDS ORDERED: bisacodyL 5 MG TABLET.DR PO PRN (15:23)
[2022-06-06] MEDS ORDERED: MELATONIN 3 MG TABLET PO PRN (15:23)
--- NOTE | 2022-06-06 15:23 | P.HPIM ---
History of Present Illness H&P Date: 06/06/22 Patient is a 77-year-old female with primary coronary infarction status post stenting, diabetes, hypertension, and dyslipidemia who presented to the emergency department with left hip pain. Apparently she had fallen 2 weeks ago and when had outpatient x-rays done which showed a left hip fracture. She has been requiring a walker to keep the weight off of her left leg. In the ER she underwent an extensive evaluation. Initial vital signs and laboratory analysis was within normal limits. Chest x-ray showed no acute process. CT hip shows probable nondisplaced subcapital fracture left femur and an osteopenic patient with cortical step off. Patient seen and examined at bedside with son present. She reports that approximately 2 weeks ago she went to visit her family. She tripped going up the stairs and landed on her left hip. Initially she was walking on a however the pain continued to get worse. She initially used a cane for one day and then a walker. Prior to that she was walking independently. She continued to have some pain in her left hip and was unable to flex at the hip but could flex at the knee. She continued to be able to walk. She went to see her primary care physician who sent her for an x-ray which showed possible fracture and she therefore presented to the emergency department. She denies any recent cough, cold, fever, flu. She follows with Dr. Beal on a regular basis of cardiology. She is unsure of her last stress test or echo. She denies any recent chest pain or syncopal episodes. She has chronic dyspnea at baseline that she has had for years. So walking up a flight of stairs before [facility] she would get dyspneic but not have any chest pain. She is independent in her ADLs and IADLs. Pertinent positives and negatives as discussed in HPI, a complete review of systems was performed and all other systems are negative. Vital signs reviewed General: nontoxic, no distress, appears at stated age Derm: warm, dry Head: atraumatic, normocephalic, symmetric Eyes: EOMI, no lid lag, anicteric sclera, pupils equal round reactive to light ENT: Nose and ears atraumatic, no thrush, no pharyngeal erythema Neck: No thyromegaly, no cervical lymphadenopathy, trachea midline, supple Mouth: no lip lesion, mucus membranes moist Cardiovascular: S1S2 reg, no murmur, positive posterior tibial pulse bilateral, no edema, capillary refill less than 2 seconds Lungs: clear to auscultation bilateral, no rhonchi, no rales, no wheeze, no accessory muscle use Abdominal: soft, nontender to palpation, no guarding, no appreciable organomegaly, normal bowel sounds Ext: no gross muscle atrophy, muscle strength 5 out of 5 in upper extremities, no contractures Neuro: CN II-XII grossly intact, light touch intact all 4 extremities, finger to nose within normal limits, Psych: Alert, oriented, appropriate affect Assessment/Plan: Probable left femur fracture -Consult orthopedics: D/W Dr. Batres Plan is for ORIF in a.m. -Pain control -Hold aspirin - NSQIP for ORIF (CPT 72615) -Below average risk for serious complications, cardiac complication, and . At average risk for UTI. DIscussed with patient hihg likely [facility] of rehab. She is aware that she has an abnormal EKG with a non specific intraventricular conduction delay. This is unchaged since 2019. Patient is at average risk for her age for the proposed prcedure and is medically optimized for the procedure. No further testing needed. - will obtain records from Dr. Mariee's office for most recent echo for guidance with perioperative fluids. Hypertension, controlled Coronary artery disease, prior Myocardial infarction Dyslipidemia - statin DM II - hold metformin - SSI - check a1c Chronic: Hypothyroidism OA The patient is admitted with an anticipated greater than 2 midnight stay for evaluation of hip fracture. DVT prophylaxis: SCDs Discussed with: patient, nursing Anticipated discharge date: pending clinical course Anticipated discharge place: pending clinical course A total of 65 minutes was spent on the care of this complex patient more than 50% of the time was spent in counseling and care coordination. Past Medical History Past Medical History: Coronary Artery Disease (CAD), Diabetes Mellitus, Eye Disorder, Hyperlipidemia, Hypertension, Myocardial Infarction (SC), Osteoarthritis (OA), Thyroid Disorder Additional Past Medical History / Comment(s): NIDDM type II, cholelithiasis, arthritis bilateral knees/chronic pain, murmur with , starting of bilateral cataracts, hypothyroid. Last Myocardial Infarction Date:: 2006 History of Any Multi-Drug Resistant Organisms: None Reported Past Surgical History: Heart Catheterization With Stent, Tubal Ligation Additional Past Surgical History / Comment(s): D&C Past Anesthesia/Blood Transfusion Reactions: No Reported Reaction Date of Last Stent Placement:: 2006 Past Psychological History: No Psychological Hx Reported Smoking Status: Never smoker Past Alcohol Use History: None Reported Past Drug Use History: None Reported - Past Family History Father Family Medical History: Cancer Additional Family Medical History / Comment(s): lung cancer Mother Family Medical History: No Reported History Additional Family Medical History / Comment(s): Mother was healthy and lived to be 90yrs. Medications and Allergies Home Medications Medication Instructions Recorded Confirmed Type Ascorbic Acid [Vitamin C] 500 mg PO HS 01/11/17 06/06/22 History Aspirin EC [Ecotrin Low Dose] 81 mg PO DAILY 01/11/17 06/06/22 History Atorvastatin Calcium [Lipitor] 80 mg PO HS 01/11/17 06/06/22 History Ezetimibe [Zetia] 10 mg PO DAILY 01/11/17 06/06/22 History Metoprolol Tartrate [Lopressor] 12.5 mg PO BID 01/11/17 06/06/22 History Nitroglycerin Sl Tabs [Nitrostat] 0.4 mg SUBLINGUAL Q5M PRN 01/11/17 06/06/22 History Quinapril HCl [Accupril] 40 mg PO HS 01/11/17 06/06/22 History Spironolactone-Hctz 25-25Mg 1 tab PO DAILY 01/11/17 06/06/22 History [Aldactazide 25-25 MG] flaxseed oiL [[place]-3 Flaxseed Oil] 1,000 mg PO DAILY 01/11/17 06/06/22 History Levothyroxine Sodium [Synthroid] 50 mcg PO MOTUWETHFRSA 07/21/20 06/06/22 History Acetaminophen Tab [Tylenol Tab] 500 mg PO Q6H PRN 06/06/22 06/06/22 History Calcium 1,200mg/ Vitamin D3 125 Mcg 1 tab PO HS 06/06/22 06/06/22 History Cholecalciferol [Vitamin D3 (25 50 mcg PO DAILY 06/06/22 06/06/22 History Mcg = 1000 Iu)] Levothyroxine Sodium [Synthroid] 100 mcg PO OLSEN 06/06/22 06/06/22 History Magnesium 250 mg PO DAILY 06/06/22 06/06/22 History metFORMIN HCL 1,000 mg PO Q12H 06/06/22 06/06/22 History Allergies Allergy/AdvReac Type Severity Reaction Status Date / Time No Known Allergies Allergy Verified 06/06/22 11:27 Physical Exam Osteopathic Statement: *. No significant issues noted on an osteopathic st ructural exam other than those noted in the History and Physical/Consult. Vitals: Vital Signs Temp Pulse Resp BP Pulse Ox 06/06/22 12:56 98.2 F 68 18 138/90 100 06/06/22 10:01 98.3 F 66 18 143/78 97 Intake and Output 06/05/22 06/06/22 06/06/22 22:59 06:59 14:59 Other: Weight 81.193 kg Results CBC & Chem 7: 06/06/22 10:39 06/06/22 10:39 Labs: Abnormal Lab Results - Last 24 Hours (Table) 06/06/22 06/06/22 06/06/22 Range/Units 10:39 10:39 10:39 Lymphocytes # 0.9 L (1.0-4.8) k/uL BUN 20 H (7-17) mg/dL Glucose 220 H (74-99) mg/dL Total Bilirubin 1.6 H (0.2-1.3) mg/dL ALT 35 H (4-34) U/L Ur Specific [place] 1.038 H (1.001-1.035) Urine Protein 1+ H (Negative) Urine Ketones Trace H (Negative) Urine Bacteria Rare H (None) /hpf Hyaline Casts 16 H (0-2) /lpf Urine Mucus Few H (None) /hpf
[2022-06-06] MEDS ORDERED: NITROGLYCERIN SL TABS 0.4 MG TAB SUBLINGUAL PRN (15:26)
[2022-06-06] MEDS ORDERED: DEXTROSE 50% SYRINGE 50 ML IVP PRN ×2 (15:28)
[2022-06-06 16:39] LABS: Glucose,Whole Blood 162 mg/dL (70-110)
[2022-06-06] MEDS: INSULIN ASPART (NovoLOG) 100 UNIT/ML VIAL SQ SCH ×2 (17:44→22:22)
[2022-06-06 20:37] LABS: Glucose,Whole Blood 124 mg/dL (70-110)
[2022-06-06] MEDS: ASCORBIC ACID 500 MG TAB PO SCH (20:38)
[2022-06-06] MEDS: METOPROLOL TARTRATE 12.5 MG TAB PO SCH (20:38)
[2022-06-06] MEDS: ATORVASTATIN 80 MG TAB PO SCH (20:38)
[2022-06-06] MEDS ORDERED: lisinopriL 20 MG TAB PO SCH (21:00)
[2022-06-07] MEDS: LEVOTHYROXINE 50 MCG TAB PO SCH (05:45)
[2022-06-07 06:23] LABS: Glucose,Whole Blood 164 mg/dL (70-110)
[2022-06-07] MEDS: INSULIN ASPART (NovoLOG) 100 UNIT/ML VIAL SQ SCH ×4 (06:23→22:40)
[2022-06-07 06:50] LABS: HCT 40.8 % (34.0-46.0); HGB 13.5 gm/dL (11.4-16.0); MCH 29.8 pg (25.0-35.0); MCHC 33.1 g/dL (31.0-37.0); MCV 90.2 fL (80.0-100.0); Mean Platelet Volume 7.2; Platelet Count 279 k/uL (150-450); RBC 4.52 m/uL (3.80-5.40); RDW 13.6 % (11.5-15.5); WBC 7.9 k/uL (3.8-10.6)
[2022-06-07 07:02] LABS: African American GFR (CKD) >90 (>60 ml/min/1.73 sqM); Anion Gap 7 mmol/L; Blood Urea Nitrogen 18 mg/dL (7-17); Calcium 9.2 mg/dL (8.4-10.2); Carbon Dioxide 27 mmol/L (22-30); Chloride 103 mmol/L (98-107); Glucose 166 mg/dL (74-99); Non-African American GFR(CKD) 84 (>60 ml/min/1.73 sqM); Potassium 4.2 mmol/L (3.5-5.1); Sodium 137 mmol/L (137-145)
[2022-06-07] MEDS: METOPROLOL TARTRATE 12.5 MG TAB PO SCH ×2 (09:00→21:00)
[2022-06-07] MEDS: EZETIMIBE 10 MG TAB PO SCH (09:00)
[2022-06-07] MEDS: SPIRONOLACTONE-HCTZ 25-25MG 1 EACH TAB PO SCH (09:02)
[2022-06-07] MEDS: SENNOSIDES 8.6 MG TAB PO SCH (09:03)
[2022-06-07 09:24] LABS: Glucose,Whole Blood 167 mg/dL (70-110)
[2022-06-07] MEDS ORDERED: LACTATED RINGERS 1,000 ML IV ONE (09:26)
[2022-06-07] MEDS ORDERED: KETAMINE 10 MG/ML 20 ML VIAL ONE (09:33)
[2022-06-07] MEDS ORDERED: PROPOFOL 10 MG/ML 20 ML VIAL IV ONE (09:33)
[2022-06-07] MEDS ORDERED: PHENYLEPHRINE-0.9% NACL SYG 1,000 MCG/10 ML SYRINGE ONE (09:33)
[2022-06-07] MEDS ORDERED: MIDAZOLAM 2 MG/2 ML VIAL ONE (09:33)
[2022-06-07] MEDS ORDERED: TRANEXAMIC ACID IN NACL,ISO-OS 1,000 MG/100 ML BAG ONE (09:33)
[2022-06-07] MEDS ORDERED: ePHEDrine 50 MG/ML 1 ML VIAL ONE (09:33)
[2022-06-07] MEDS ORDERED: ONDANSETRON 4 MG/2 ML VIAL IVP ONE (09:34)
--- NOTE | 2022-06-07 09:34 | P.PN ---
Progress Note - Text Progress Note Date: 06/07/22 Orthopedic Surgery Risk Review Radha Cote is a 77-year-old female presenting for evaluation of sudden onset left hip pain, inability to ambulate after fall from standing. It was my pleasure to have seen and examined Radha. In our visit today we have had a chance to go over subjective complaints, physical examination findings and treatments including the natural course history without intervention and various interventional options. [ her imaging demonstrates valgus impacted left femoral neck fracture. On physical exam, Radha demonstrates pain with motion of left lower extremity and hip, which is NV intact at this time. I have explained to the patient that this fracture needs stabilization. Based on the patients imaging, physical exam, and the rapid progression and disabling nature of her symptoms, at this time I recommend surgery in the form or a: left hip ORIF I discussed the risk and benefits of this procedure at length with Radha Questions were invited and answered, and the patient wishes to proceed as outlined below. Currently, I am recommendin. left hip open reduction internal fixation 2. Review of surgical risks and benefits as well as an educational packet on the proposed surgical procedure. Risks: All surgical procedures come with inherent risks, including those related to positioning, anesthesia, intraoperative findings, and postoperative complications. It is important to understand that surgery does not come with any guarantee of a successful outcome as complications and adverse events are always possible. The patient was given a handout discussing the surgical procedure and risks associated with the intervention, both of which were discussed with the patient. These risks include but are not limited to the following: - Experiencing same, different or even worse symptoms compared to before surgery. - Requiring further surgery or other forms of treatment presently or at some time in the future . - On an extreme but fortunately relatively rare basis severe complication such as blindness, stroke, heart attack, temporary and/or permanent nerve injury, paralysis, coma, or may occur, sometimes without known explanation. - Surgical complications may include but are not limited to risk of infection, fluid accumulation in the surgical dissection site, including a seroma or hematoma, that requires additional surgery, wound drainage, bleeding, new numbness or weakness, vision changes/loss, spinal fluid leakage, non-healing and/or infected incision, headaches, difficulty or inability to swallow, hoarseness, hemopneumothorax, pneumothorax, injury to nerves, spinal cord, blood vessels, lymphatics or other vital organs (i.e., bowel injury, injury to the great vessels); heterotopic bone formation; complications related to the hardware such as screws, rods, including misplaced hardware, device failure, hardware fracture/breakage, or hardware loosening; retained surgical instrumentations or devices and the need for further surgery. - Medical risks of the planned surgery include but are not limited to generalized Infections to the whole body or local areas outside of the surgical site (sepsis), heart attack, bleeding, anaphylaxis, meningitis, seizure, epilepsy, hearing loss, burn awad, laceration of the head or other areas of the body, bruising, hypersensitivity of the skin, bladder over distension; allergic reaction; shoulder injury related to positioning; fat, blood and air clots to other areas of the body like heart, lungs, brain; failure of internal organs such as lungs, kidneys, liver and excessive bleeding. If blood transfusions are necessary, note that transfusions may cause intolerance reactions such as anaphylaxis or other complex reactions. Despite best efforts, the results of surgery might not heal in terms of bone, soft tissues such as skin, fascia, ligaments, and joints. [facility] has multiple operating rooms with single and overlapping rooms running daily. They currently function under the required guidelines as produced by the [facility] with regards to the overlapping rooms and will continue to comply with changes to this policy as they occur. The requirements include and are complied with as follows: (1) the critical portions of the overlapping rooms will not occur at the same time, (2) the attending physician will be physically present during the critical portions of the procedure and immediately available during the entire case, and (3) a back-up attending is designated should the primary attending not be immediately available. The patient has had a chance to review all the listed information, has been g iven print outs detailing this information, and has had all his/her questions answered to their satisfaction. It was my pleasure to have seen and examined Radha. In our visit today we have had a chance to go over my understanding of our patient's current condition, the natural course history without intervention and various interventional options. Questions were invited and answered, and the patient wishes to proceed as outlined above. I have seen and examined the patient for 25 minutes and we have spent more than 50% of the time in repeat and detailed counseling about the patient's condition, its natural course history with out and as much as can be predicted with surgery and re-review of various surgical treatment options. In conclusion, Radha Cote requested we proceed with the above suggested surgery and are willing to accept risks and limitations of the suggested surgery as nature of the disease process and our best attempts at treatment for the condition. Thank you again for allowing us to be part of your patient's care. Please don't hesitate to contact me if you have any further questions. Signed and authenticated by: Thanh Velasco [facility] [address] [address]
--- NOTE | 2022-06-07 09:52 | P.PN ---
Subjective Progress Note Date: 06/07/22 Principal diagnosis: Left hip femoral neck fracture, nondisplaced Patient was seen at bedside this morning lying semirecumbent position. Patient says she is looking forward to surgery later today. Patient denies any new changes. Patient says she has pain when she has put weight on the left lower extremity. Patient denies chest pain, fever, shortness breath, nausea, vomiting , change in vision, loss of bladder control. Objective - Vital Signs Vital signs: Vital Signs Temp 97.6 F 06/07/22 09:19 Pulse 86 06/07/22 09:19 Resp 18 06/07/22 09:19 BP 164/82 06/07/22 09:19 Pulse Ox 97 06/07/22 09:19 FiO2 Intake & Output 06/06/22 06/07/22 06/07/22 18:59 06:59 18:59 Output Total 1050 Balance -1050 Weight 81.193 kg Output: Urine 1050 Other: Voiding Method Indwelling Catheter - Exam Inspection: Negative for any open fracture, significant erythema/ecchymosis/ulcers. Sensation: Sensation is equal, symmetric, bilaterally intact throughout the upper and lower extremities on exam. Palpation: There is a fair amount of tenderness to palpation along the left groin/left lateral hip. Nontender to palpation throughout rest of exam. Range of motion: Patient has full range of motion in right lower extremity and bilateral upper extremities on exam. Patient has full range of motion and left lower extremity and ankle dorsi/plantar flexion. There is some limited range of motion in the left knee in flexion and extension and left hip in flexion/extension due to pain/weakness. Motor: 4-/5 in resisted left hip flexion/extension and left knee flexion/extension. 5/5 in all major motor groups in bilateral upper extremities. 4+/5 in all major motor groups in right lower extremity and and right ankle dorsi/plantar flexion. Neurovascular status: Radial pulses intact, 2+ bilaterally. Capillary refill un mariann 3 seconds in digits upper extremities. DP pulses palpable, although weak Special tests: Negative Homans bilaterally. - Labs CBC & Chem 7: 06/07/22 06:13 06/07/22 06:13 Labs: Abnormal Lab Results - Last 24 Hours (Table) 06/06/22 06/06/22 06/06/22 Range/Units 10:39 10:39 10:39 Lymphocytes # 0.9 L (1.0-4.8) k/uL BUN 20 H (7-17) mg/dL Glucose 220 H (74-99) mg/dL POC Glucose (mg/dL) (70-110) mg/dL Total Bilirubin 1.6 H (0.2-1.3) mg/dL ALT 35 H (4-34) U/L Ur Specific [place] 1.038 H (1.001-1.035) Urine Protein 1+ H (Negative) Urine Ketones Trace H (Negative) Urine Bacteria Rare H (None) /hpf Hyaline Casts 16 H (0-2) /lpf Urine Mucus Few H (None) /hpf 06/06/22 06/06/22 06/07/22 Range/Units 16:38 20:34 06:13 Lymphocytes # (1.0-4.8) k/uL BUN 18 H (7-17) mg/dL Glucose 166 H (74-99) mg/dL POC Glucose (mg/dL) 162 H 124 H (70-110) mg/dL Total Bilirubin (0.2-1.3) mg/dL ALT (4-34) U/L Ur Specific [place] (1.001-1.035) Urine Protein (Negative) Urine Ketones (Negative) Urine Bacteria (None) /hpf Hyaline Casts (0-2) /lpf Urine Mucus (None) /hpf 06/07/22 06/07/22 Range/Units 06:20 09:22 Lymphocytes # (1.0-4.8) k/uL BUN (7-17) mg/dL Glucose (74-99) mg/dL POC Glucose (mg/dL) 164 H 167 H (70-110) mg/dL Total Bilirubin (0.2-1.3) mg/dL ALT (4-34) U/L Ur Specific [place] (1.001-1.035) Urine Protein (Negative) Urine Ketones (Negative) Urine Bacteria (None) /hpf Hyaline Casts (0-2) /lpf Urine Mucus (None) /hpf Assessment and Plan Assessment: 1. Left hip nondisplaced femoral neck fracture Plan: 1 left hip nondisplaced femoral neck fracture - x-ray of the left hip performed did reveal a nondisplaced left hip femoral neck fracture. Patient stable at bedside this morning on 4S. Surgery planned for today - ORIF left hip with percutaneous screws. Patient is to remain NPO. With hold thinners. Pain medication as needed. Nonweightbearing left lower extremity. We'll continue to follow patient during her stay in hospital 2. Appreciate medical management 3. Pain management - tylenol 4. DVT prophylaxis - with hold thinners at this time 5. GI prophylaxis - senna 6. PT/OT - nonweightbearing left lower extremity 7. Encourage incentive spirometer use 8. Appreciate consult Time with Patient: Less than 30
[2022-06-07] MEDS ORDERED: ceFAZolin 1,000 MG in SODIUM CHLORIDE 0.9% 1,000 ML IRRIGATION ONE (10:09)
[2022-06-07] MEDS ORDERED: NALOXONE 0.4 MG/ML 1 ML VIAL IV PRN (10:46)
[2022-06-07] MEDS ORDERED: HYDROmorphone 0.5 MG/0.5 ML SYRINGE IVP PRN ×2 (10:46)
[2022-06-07] MEDS ORDERED: traMADol 50 MG TAB PO PRN (10:46)
--- NOTE | 2022-06-07 10:58 | XR ---
Intraoperative/procedural fluoroscopic services were provided for right hip fracture/surgical repair. There are 3 screws demonstrated within the proximal femur with appropriate alignment. Total fluorosc opy time is 1 minute with a total of 10 submitted images to PACS. Please see the operative note for f urther details.
[2022-06-07 11:57] LABS: Glucose,Whole Blood 167 mg/dL (70-110)
--- NOTE | 2022-06-07 13:45 | P.OP ---
Date of Procedure: 06/07/22 Preoperative Diagnosis: 1. Left hip valgus impacted femoral neck fracture 2. s/p ffs Postoperative Diagnosis: 1. Left hip valgus impacted femoral neck fracture 2. s/p ffs Procedure(s) Performed: 1. Open reduction and internal fixation of left hip (33496) Implants: -Cannulated screws Fortune and nephew 6.0 mm x3 Anesthesia: MAC, spinal Surgeon: Thanh Batres Fishing Tool Supervisor #1: Dagoberto Serrano (was present and assisted with all aspects of the case from positioning to dressing placement) Pathology: none sent Condition: stable Disposition: PACU Indications for Procedure: Radha Cote is a 77-year-old female presenting for evaluation of sudden onset left hip pain, inability to ambulate after fall from standing. It was my pleasure to have seen and examined Radha. In our visit today we have had a chance to go over subjective complaints, physical examination findings and treatments including the natural course history without intervention and various interventional options. [ her imaging demonstrates valgus impacted left femoral neck fracture. On physical exam, Radha demonstrates pain with motion of left lower extremity and hip, which is NV intact at this time. I have explained to the patient that this fracture needs stabilization. Based on the patients imaging, physical exam, and the rapid progression and disabling nature of her symptoms, at this time I recommend surgery in the form or a: left hip ORIF I discussed the risk and benefits of this procedure at length with Radha Questions were invited and answered, and the patient wishes to proceed as outlined below. Currently, I am recommendin. left hip open reduction internal fixation Description of Procedure: Hip cannulated screw placement The patient was seen and examined in the preoperative area. All preoperative protocols were followed. Informed consent was obtained risks and benefits of the procedure were discussed at length. Risks including bleeding infection damage to the surrounding tissue and risk of reoperation were discussed with the patient. Risk of anesthesia up to and including was a discussed with the patient. These are outlined in the risk reviewed. They were willing to accept these risks and all of the risks of surgery. The patient was given a weight- based dose of antibiotics in the form of 2 g Ancef. The patient was seen and evaluated by the anesthesia team who deemed them fit for surgery. The site was marked, the patient was willing to proceed with the procedure. The patient was transferred to the operative suite by the Department of anesthesia. There were then drifted off to sleep by the department of anesthesia andGETA anesthesia was used. Once adequate anesthesia had been obtained the patient was carefully transferred to the operative bed. All bony prominences were padded accordingly. SCDs were placed on the nonoperative lower extremities. Arms were well padded. the patient was transferred to the Rhoda table and her Left leg was placed in a Rhoda boot and secured to the table right leg was placed in a well-leg dunbar well padded and secured. The post was placed and she was secured appropriately. arms were placed on arm boards and well-padded Preoperative briefing was done with the operative team and everyone was ready for the procedure to start. The patients right leg was then prepped and draped in the normal sterile fashion. Timeout was then performed and all parties in agreement with the procedure to be performed. X-ray was then used to silva of the femoral neck as well as the femoral shaft. Skin incision was made over the lateral aspect the patient's hip dissection taken down bluntly to the tensor fascia which was split in line with its fibers. A pin was then used under fluoroscopic guidance and placed center within the femoral neck on the lowest portion of the calcar possible. This pin was then advanced under AP and lateral fluoroscopy to be within 5 mm of the subchondral cortex. The parallel guide was then used to place 2 more pins in an inverted triangle configuration the anterior superior pin in the posterior superior pins were placed. This is done under AP and lateral fluoroscopy. We then measured each pin after measurement the lateral cortex was opened with a drill over the pin followed by a 6.0 mm cannulated screw which was partially threaded. The screw was first passed over the lowest calcar pin and had good purchase. We then placed the posterior superior than the anterior superior screws. All screws had good purchase and were in good position on AP and lateral within the femoral neck crossing the fracture and creating good compression. The pins were then all removed. The wound was then copiously irrigated with normal sterile saline final AP and lateral fluoroscopic imaging confirmed good placement of pins as well as reduction of fracture. The deep fascia was then closed with 0 Vicryl superficial closed 2-0 Vicryl and skin closed with skin lindsey the wound edges approximated very well. The wound was then cleaned and dressed with an optifoam dressing. The patient was then transferred back to their hospital bed. There were awakened by department of anesthesia having tolerated the procedure very well with no complications. The patient was then transported to the postoperative care unit in stable condition.
[2022-06-07] MEDS ORDERED: TRANEXAMIC ACID 1,000 MG in SODIUM CHLORIDE 0.9% 100 ML IVPB PRN (14:00)
[2022-06-07] MEDS: ACETAMINOPHEN TAB 325 MG TAB PO PRN (15:01)
--- NOTE | 2022-06-07 15:46 | P.PN ---
Subjective Progress Note Date: 06/07/22 (delayed charting seen at 1430) Patient is a 77-year-old female with primary coronary infarction status post stenting, diabetes, hypertension, and dyslipidemia who presented to the emergency department with left hip pain. Apparently she had fallen 2 weeks ago and when had outpatient x-rays done which showed a left hip fracture. She has been requiring a walker to keep the weight off of her left leg. In the ER she underwent an extensive evaluation. Initial vital signs and laboratory analysis was within normal limits. Chest x-ray showed no acute process. CT hip shows probable nondisplaced subcapital fracture left femur and an osteopenic patient with cortical step off. She underwent ORIF on 06/07/22. Patient seen and examined bedside. She c/o some left leg pain at the knee after surgery. No chest pain, SOB, nausea, or vomiting. General: nontoxic, no distress, appears at stated age Derm: warm, dry, dresssing C/D/I Head: atraumatic, normocephalic, symmetric Eyes: EOMI, no lid lag, anicteric sclera Mouth: no lip lesion, mucus membranes moist Cardiovascular: S1S2 reg, no murmur, positive posterior tibial pulse bilateral, Lungs: CTA bilateral, no rhonchi, no rales , no accessory muscle use Abdominal: soft, nontender to palpation, no guarding, no appreciable organomegaly Ext: no gross muscle atrophy, no edema, no contractures Neuro: CN II-XI grossly intact, no focal neuro deficits Psych: Alert, oriented, appropriate affect Assessment/Plan: Left femur fracture s/p ORIF on 06/07/22 -ortho recs appreciated. -Pain control -Hold aspirin until cleared ortho to restart Hypertension, controlled Coronary artery disease, prior Myocardial infarction - hold lisinopril due to low BP post op - resume metoprolol Dyslipidemia - statin DM II - hold metformin - SSI - A1c 7.2 Chronic: Hypothyroidism OA DVT prophylaxis: SCDs Discussed with: patient, nursing, patients family Anticipated discharge: pending clinical course Anticipated discharge place: SNF A total of 25 minutes was spent on the care of this complex patient more than 50% of the time was spent in counseling and care coordination. Objective - Vital Signs Vital signs: Vital Signs Temp 97.7 F 06/07/22 11:33 Pulse 79 06/07/22 13:35 Resp 18 06/07/22 13:35 BP 119/66 06/07/22 13:35 Pulse Ox 93 L 06/07/22 13:35 FiO2 Intake & Output 06/06/22 06/07/22 06/07/22 18:59 06:59 18:59 Intake Total 626 Output Total 1050 670 Balance -1050 -44 Weight 81.193 kg Intake: IV 626 Output: Urine 1050 650 Estimated Blood Loss 20 Other: Voiding Method Indwelling Catheter Indwelling Catheter - Labs CBC & Chem 7: 06/07/22 06:13 06/07/22 06:13 Labs: Abnormal Lab Results - Last 24 Hours (Table) 06/06/22 06/06/22 06/07/22 Range/Units 16:38 20:34 06:13 BUN (7-17) mg/dL Glucose (74-99) mg/dL POC Glucose (mg/dL) 162 H 124 H (70-110) mg/dL Hemoglobin A1c 7.2 H (0.0-6.0) % 06/07/22 06/07/22 06/07/22 Range/Units 06:13 06:20 09:22 BUN 18 H (7-17) mg/dL Glucose 166 H (74-99) mg/dL POC Glucose (mg/dL) 164 H 167 H (70-110) mg/dL Hemoglobin A1c (0.0-6.0) % 06/07/22 Range/Units 11:55 BUN (7-17) mg/dL Glucose (74-99) mg/dL POC Glucose (mg/dL) 167 H (70-110) mg/dL Hemoglobin A1c (0.0-6.0) %
[2022-06-07 16:41] LABS: Glucose,Whole Blood 165 mg/dL (70-110)
[2022-06-07 19:58] LABS: Basophils % (A) 0 %; Eosinophils % (A) 0 %; HCT 40.3 % (34.0-46.0); HGB 13.2 gm/dL (11.4-16.0); Lymphocytes # (A) 1.1 k/uL (1.0-4.8); Lymphocytes % (A) 10 %; MCH 29.4 pg (25.0-35.0); MCHC 32.9 g/dL (31.0-37.0); MCV 89.4 fL (80.0-100.0); Mean Platelet Volume 7.4; Monocytes # (A) 0.6 k/uL (0-1.0); Monocytes % (A) 6 %; Neutrophils # (A) 9.1 k/uL (1.3-7.7); Neutrophils % (A) 83 %; Platelet Count 317 k/uL (150-450); RBC 4.51 m/uL (3.80-5.40); RDW 13.3 % (11.5-15.5)
[2022-06-07] MEDS: SENNOSIDES-DOCUSATE SODIUM 1 EACH TAB PO SCH (21:00)
[2022-06-07] MEDS: ATORVASTATIN 80 MG TAB PO SCH (21:00)
[2022-06-07] MEDS: ASCORBIC ACID 500 MG TAB PO SCH (21:01)
[2022-06-07 21:33] LABS: Glucose,Whole Blood 183 mg/dL (70-110)
[2022-06-08 06:36] LABS: Glucose,Whole Blood 200 mg/dL (70-110)
[2022-06-08] MEDS: ACETAMINOPHEN TAB 325 MG TAB PO PRN ×2 (06:45→18:38)
[2022-06-08] MEDS: INSULIN ASPART (NovoLOG) 100 UNIT/ML VIAL SQ SCH ×4 (06:45→20:56)
[2022-06-08] MEDS: LEVOTHYROXINE 50 MCG TAB PO SCH (06:45)
--- NOTE | 2022-06-08 07:48 | P.PN ---
Subjective Progress Note Date: 06/08/22 Principal diagnosis: postop day 1 right hip open reduction internal fixation with cannulated screws patient seen and examined she is sitting up in bed she is doing fairly well. S he was able to sit up at bedside last night without any issues. She is taking no pain medications. States she feels like she could be ready to go home but would like to walk first which is reasonable. We will try and get her up today with therapy. Objective - Vital Signs Vital signs: Vital Signs Temp 98.8 F 06/08/22 02:56 Pulse 77 06/08/22 02:56 Resp 20 06/08/22 02:56 BP 119/74 06/08/22 02:56 Pulse Ox 92 L 06/08/22 02:56 FiO2 Intake & Output 06/07/22 06/08/22 06/08/22 18:59 06:59 18:59 Intake Total 626 Output Total 670 3360 Balance -44 -3360 Intake: IV 626 Output: Urine 650 3360 Estimated Blood Loss 20 Other: Voiding Method Indwelling Catheter Indwelling Catheter - Exam vital signs stable afebrile alert and oriented 3 appears well-nourished well-hydrated and is in the acute distress minimal tenderness to palpation around incision 5/5 UE b/l all major muscle groups 3/5 LLE HF, KE, KF due to fracture and pain. 5/5 DF/PF/EHL/FHL and all others SILT L2-S1 Compartments soft and compressive 2/4 DP/PT pulses - Labs CBC & Chem 7: 06/07/22 17:20 06/07/22 06:13 Labs: Abnormal Lab Results - Last 24 Hours (Table) 06/07/22 06/07/22 06/07/22 Range/Units 06:13 09:22 11:55 WBC (3.8-10.6) k/uL Neutrophils # (1.3-7.7) k/uL POC Glucose (mg/dL) 167 H 167 H (70-110) mg/dL Hemoglobin A1c 7.2 H (0.0-6.0) % 06/07/22 06/07/22 06/07/22 Range/Units 16:40 17:20 21:31 WBC 11.0 H (3.8-10.6) k/uL Neutrophils # 9.1 H (1.3-7.7) k/uL POC Glucose (mg/dL) 165 H 183 H (70-110) mg/dL Hemoglobin A1c (0.0-6.0) % 06/08/22 Range/Units 06:34 WBC (3.8-10.6) k/uL Neutrophils # (1.3-7.7) k/uL POC Glucose (mg/dL) 200 H (70-110) mg/dL Hemoglobin A1c (0.0-6.0) % Assessment and Plan Assessment: 77 yo female POD1 ORIF Left hip with cannulated screw fixation Plan: -WBAT with assist device -PT/OT -Pain control as needed -GI ppx -DVT ppx 4 weeks post op -Once pt does PT and if she does well could be cleared for home with home health and family help. If she needs time to strengthen can stay another day vs go to Rehab. She is otherwise ortho stable.
[2022-06-08] MEDS: METOPROLOL TARTRATE 12.5 MG TAB PO SCH ×2 (09:26→20:56)
[2022-06-08] MEDS: EZETIMIBE 10 MG TAB PO SCH (09:26)
[2022-06-08] MEDS: ASPIRIN 81 MG PO SCH (09:26)
[2022-06-08] MEDS: SPIRONOLACTONE-HCTZ 25-25MG 1 EACH TAB PO SCH (09:26)
[2022-06-08] MEDS: SENNOSIDES 8.6 MG TAB PO SCH (09:26)
[2022-06-08 11:29] LABS: Glucose,Whole Blood 277 mg/dL (70-110)
--- NOTE | 2022-06-08 13:17 | P.PN ---
Subjective Progress Note Date: 06/08/22 (delayed charting seen at 0930) Patient is a 77-year-old female with primary coronary infarction status post stenting, diabetes, hypertension, and dyslipidemia who presented to the emergency department with left hip pain. Apparently she had fallen 2 weeks ago and when had outpatient x-rays done which showed a left hip fracture. She has been requiring a walker to keep the weight off of her left leg. In the ER she underwent an extensive evaluation. Initial vital signs and laboratory analysis was within normal limits. Chest x-ray showed no acute process. CT hip shows probable nondisplaced subcapital fracture left femur and an osteopenic patient with cortical step off. She underwent ORIF on 06/07/22. She tolerated the procedure well. Patient seen and examined bedside. She c/o some left leg pain at the knee after surgery. No chest pain, SOB, nausea, or vomiting. General: nontoxic, no distress, appears at stated age Derm: warm, dry, Head: atraumatic, normocephalic, symmetric Eyes: EOMI, no lid lag, anicteric sclera Mouth: no lip lesion, mucus membranes moist Cardiovascular: S1S2 reg, no murmur Lungs: CTA bilateral, no rhonchi, no rales , no accessory muscle use Abdominal: soft, nontender to palpation, no guarding, no appreciable organomegaly Ext: no gross muscle atrophy, no edema, no contractures Neuro: CN II-XI grossly intact, no focal neuro deficits Psych: Alert, oriented, appropriate affect Assessment/Plan: Left femur fracture s/p ORIF on 06/07/22 -ortho recs appreciated. -Pain control -ASA Hypertension, controlled Coronary artery disease, prior Myocardial infarction - hold ACEI due to low BP post op - metoprolol , Diuretics Dyslipidemia - statin DM II - hold metformin - SSI - A1c 7.2 Chronic: Hypothyroidism OA DVT prophylaxis: SCDs Discussed with: patient, nursing, patients family Anticipated discharge: in AM Anticipated discharge place: home with home health once/if able to do stairs. A total of 25 minutes was spent on the care of this complex patient more than 50% of the time was spent in counseling and care coordination. Active Medications Generic Name Dose Route Start Last Admin Trade Name Freq PRN Reason Stop Dose Admin Acetaminophen 650 mg 06/06/22 13:18 06/08/22 06:45 Acetaminophen Tab 325 Mg Tab PO 650 mg Q6HR PRN Administration Fever and/ or Pain Ascorbic Acid 500 mg 06/06/22 21:00 06/07/22 21:01 Ascorbic Acid 500 Mg Tab PO 500 mg HS TORSTEN Administration Aspirin 81 mg 06/08/22 09:00 06/08/22 09:26 Aspirin 81 Mg PO 81 mg DAILY TORSTEN Administration Atorvastatin Calcium 80 mg 06/06/22 21:00 06/07/22 21:00 Atorvastatin 80 Mg Tab PO 80 mg HS TORSTEN Administration Bisacodyl 5 mg 06/06/22 15:23 Bisacodyl 5 Mg Tablet.Dr PO DAILY PRN Constipation Dextrose/Water 25 ml 06/06/22 15:28 Dextrose 50% Syringe 50 Ml IVP PER PROTOCOL PRN Hypoglycemia Protocol Dextrose/Water 50 ml 06/06/22 15:28 Dextrose 50% Syringe 50 Ml IVP PER PROTOCOL PRN Hypoglycemia Protocol Ezetimibe 10 mg 06/07/22 09:00 06/08/22 09:26 Ezetimibe 10 Mg Tab PO 10 mg DAILY TORSTEN Administration HCTZ/Spironolactone 1 each 06/07/22 09:00 06/08/22 09:26 Spironolactone-Hctz 25-25mg 1 Each Tab PO 1 each DAILY TORSTEN Administration Hydromorphone HCl 0.5 mg 06/06/22 10:35 06/07/22 20:42 Hydromorphone 0.5 Mg/0.5 Ml Syringe IVP 0.5 mg Q3HR PRN Administration SEVERE Pain (Scale 7 to 10) Hydromorphone HCl 0.25 mg 06/07/22 10:46 06/07/22 13:10 Hydromorphone 0.5 Mg/0.5 Ml Syringe IVP 0.25 mg Q3HR PRN Administration Pain Scale 4 to 6 Hydromorphone HCl 0.125 mg 06/07/22 10:46 Hydromorphone 0.5 Mg/0.5 Ml Syringe IVP Q3HR PRN Pain Scale 1 to 3 Cefazolin Sodium 2 gm/ Sodium 50 mls @ 100 mls/hr 06/07/22 08:00 06/08/22 09:26 Chloride IVPB 100 mls/hr Q8HR TORSTEN Administration Protocol Insulin Aspart 0 unit 06/06/22 17:30 06/08/22 12:02 Insulin Aspart (Novolog) 100 Unit/Ml Vial SQ 3 unit ACHS TORSTEN Administration Protocol Levothyroxine Sodium 50 mcg 06/07/22 06:30 06/08/22 06:45 Levothyroxine 50 Mcg Tab PO 50 mcg [email or web address] TORSTEN Administration Levothyroxine Sodium 100 mcg 06/09/22 06:30 Levothyroxine 100 Mcg Tab PO [email or web address] TORSTEN Melatonin 3 mg 06/06/22 15:23 06/07/22 20:44 Melatonin 3 Mg Tablet PO 3 mg HS PRN Administration Insomnia Metoprolol Tartrate 12.5 mg 06/06/22 21:00 06/08/22 09:26 Metoprolol Tartrate 12.5 Mg Tab PO 12.5 mg BID TORSTEN Administration Naloxone HCl 0.2 mg 06/06/22 10:35 Naloxone 0.4 Mg/Ml 1 Ml Vial IV Q2M PRN Opioid Reversal Nitroglycerin 0.4 mg 06/06/22 15:26 Nitroglycerin Sl Tabs 0.4 Mg Tab SUBLINGUAL Q5M PRN Chest Pain Ondansetron HCl 4 mg 06/06/22 10:35 Ondansetron 4 Mg/2 Ml Vial IVP Q8HR PRN Nausea And Vomiting Senna 8.6 mg 06/07/22 09:00 06/08/22 09:26 Sennosides 8.6 Mg Tab PO 8.6 mg DAILY TORSTEN Administration Senna/Docusate Sodium 2 each 06/07/22 21:00 06/07/22 21:00 Sennosides-Docusate Sodium 1 Each Tab PO 2 each HS TORSTEN Administration Tramadol HCl 50 mg 06/07/22 10:46 Tramadol 50 Mg Tab PO Q6HR PRN Pain Scale 1 to 5 Objective - Vital Signs Vital signs: Vital Signs Temp 98.5 F 06/08/22 07:53 Pulse 78 06/08/22 07:53 Resp 18 06/08/22 07:53 BP 124/76 06/08/22 07:53 Pulse Ox 91 L 06/08/22 07:53 FiO2 Intake & Output 06/07/22 06/08/22 06/08/22 18:59 06:59 18:59 Intake Total 626 Output Total 670 3360 700 Balance -44 -3360 -700 Intake: IV 626 Output: Urine 650 3360 700 Uretheral (Sears) 700 Estimated Blood Loss 20 Other: Voiding Method Indwelling Catheter Indwelling Catheter Indwelling Catheter - Labs CBC & Chem 7: 06/07/22 17:20 06/07/22 06:13 Labs: Abnormal Lab Results - Last 24 Hours (Table) 06/07/22 06/07/22 06/07/22 Range/Units 16:40 17:20 21:31 WBC 11.0 H (3.8-10.6) k/uL Neutrophils # 9.1 H (1.3-7.7) k/uL POC Glucose (mg/dL) 165 H 183 H (70-110) mg/dL 06/08/22 06/08/22 Range/Units 06:34 11:28 WBC (3.8-10.6) k/uL Neutrophils # (1.3-7.7) k/uL POC Glucose (mg/dL) 200 H 277 H (70-110) mg/dL
[2022-06-08 16:40] LABS: Glucose,Whole Blood 229 mg/dL (70-110)
[2022-06-08 20:42] LABS: Glucose,Whole Blood 240 mg/dL (70-110)
[2022-06-08] MEDS: ASCORBIC ACID 500 MG TAB PO SCH (20:55)
[2022-06-08] MEDS: ATORVASTATIN 80 MG TAB PO SCH (20:55)
[2022-06-08] MEDS: SENNOSIDES-DOCUSATE SODIUM 1 EACH TAB PO SCH (20:56)
[2022-06-09] MEDS: ACETAMINOPHEN TAB 325 MG TAB PO PRN ×3 (05:32→17:53)
[2022-06-09 06:13] LABS: Glucose,Whole Blood 185 mg/dL (70-110)
[2022-06-09] MEDS: INSULIN ASPART (NovoLOG) 100 UNIT/ML VIAL SQ SCH ×4 (06:15→22:09)
[2022-06-09] MEDS ORDERED: LEVOTHYROXINE 100 MCG TAB PO SCH (06:30)
[2022-06-09 08:32] LABS: African American GFR (CKD) >90 (>60 ml/min/1.73 sqM); Anion Gap 8 mmol/L; Blood Urea Nitrogen 12 mg/dL (7-17); Calcium 9.3 mg/dL (8.4-10.2); Carbon Dioxide 27 mmol/L (22-30); Chloride 101 mmol/L (98-107); Glucose 264 mg/dL (74-99); Non-African American GFR(CKD) 89 (>60 ml/min/1.73 sqM); Potassium 4.5 mmol/L (3.5-5.1); Sodium 136 mmol/L (137-145)
--- NOTE | 2022-06-09 09:03 | P.PN ---
Subjective Progress Note Date: 06/09/22 Principal diagnosis: Left hip femoral neck fracture, nondisplaced Patient was seen at bedside this morning lying semirecumbent position. Patient says she is looking forward to working with physical therapy later today. Patient says her pain is under better control today than it was yesterday. Patient says the pain is easing in her left hip as well. Patient says she is looking forward to going home. Patient says she does have a walker and a cane at home. Patient denies chest pain, fever, shortness breath, nausea, vomiting, change in vision, loss of bladder control. Objective - Vital Signs Vital signs: Vital Signs Temp 98.6 F 06/09/22 07:16 Pulse 69 06/09/22 07:16 Resp 17 06/09/22 07:16 BP 118/73 06/09/22 07:16 Pulse Ox 94 L 06/09/22 07:16 FiO2 Intake & Output 06/08/22 06/09/22 06/09/22 18:59 06:59 18:59 Output Total 700 Balance -700 Output: Urine 700 Uretheral (Sears) 700 Other: Voiding Method Indwelling Catheter Indwelling Catheter # Voids 1 3 - Exam Inspection: Negative for any open fracture, significant erythema/ecchymosis/ulcers. Surgical dressing present over left hip. Negative for any drainage at this time. [place] are well aligned and in place. Sensation: Sensation is equal, symmetric, bilaterally intact throughout the upper and lower extremities on exam. Palpation: There is a fair amount of tenderness to palpation along the left groin/left lateral hip. Nontender to palpation throughout rest of exam. Range of motion: Patient has full range of motion in right lower extremity and bilateral upper extremities on exam. Patient has full range of motion of left lower extremity in ankle dorsi/plantar flexion. There is some limited range of motion in the left knee in flexion and extension and left hip in flexion/extension due to pain/weakness. Motor: 4/5 in resisted left hip flexion/extension and left knee flexion/extension. 5/5 in all major motor groups in bilateral upper extremities. 4+/5 in all major motor groups in right lower extremity and and r ight ankle dorsi/plantar flexion. Neurovascular status: Radial pulses intact, 2+ bilaterally. Capillary refill under 3 seconds in digits upper extremities. DP pulses palpable, although weak Special tests: Negative Homans bilaterally. - Labs CBC & Chem 7: 06/07/22 17:20 06/09/22 07:57 Labs: Abnormal Lab Results - Last 24 Hours (Table) 06/08/22 06/08/22 06/08/22 Range/Units 11:28 16:39 20:41 Sodium (137-145) mmol/L Glucose (74-99) mg/dL POC Glucose (mg/dL) 277 H 229 H 240 H (70-110) mg/dL 06/09/22 06/09/22 Range/Units 06:11 07:57 Sodium 136 L (137-145) mmol/L Glucose 264 H (74-99) mg/dL POC Glucose (mg/dL) 185 H (70-110) mg/dL Assessment and Plan Assessment: 1. Left hip nondisplaced femoral neck fracture - Postop day #2 status post left hip ORIF percutaneous screws Plan: 1 left hip nondisplaced femoral neck fracture - surgery performed 06/07/2022 - left hip ORIF percutaneous screws. Patient stable at bedside this morning. Patient is to work with physical therapy and perform the stairs before being discharged home with health services. We'll continue to follow patient d uring her stay in hospital 2. Appreciate medical management 3. Pain management - tylenol 4. DVT prophylaxis - aspirin 81 mg daily 5. GI prophylaxis - senna 6. PT/OT - weightbearing as tolerated left lower extremity With walker 7. Encourage incentive spirometer use Time with Patient: Less than 30
[2022-06-09] MEDS: ASPIRIN 81 MG PO SCH (09:57)
[2022-06-09] MEDS: SENNOSIDES 8.6 MG TAB PO SCH (09:57)
[2022-06-09] MEDS: EZETIMIBE 10 MG TAB PO SCH (09:57)
[2022-06-09] MEDS: METOPROLOL TARTRATE 12.5 MG TAB PO SCH ×2 (09:57→20:47)
[2022-06-09] MEDS: SPIRONOLACTONE-HCTZ 25-25MG 1 EACH TAB PO SCH (10:04)
--- NOTE | 2022-06-09 10:27 | P.PN ---
Subjective Progress Note Date: 06/09/22 Patient is a 77-year-old female with primary coronary infarction status post stenting, diabetes, hypertension, and dyslipidemia who presented to the emergency department with left hip pain. Apparently she had fallen 2 weeks ago and when had outpatient x-rays done which showed a left hip fracture. She has been requiring a walker to keep the weight off of her left leg. In the ER she underwent an extensive evaluation. Initial vital signs and laboratory analysis was within normal limits. Chest x-ray showed no acute process. CT hip shows probable nondisplaced subcapital fracture left femur and an osteopenic patient with cortical step off. She underwent ORIF on 06/07/22. She tolerated the procedure well. Patient seen and examined bedside. She denies and pain this morning. No chest pain or shortness of breath. Walking better than yesterday. will need PT/OT to have her do the stairs prior to discharge. Will be cleared for discharge once this can be arranged. General: nontoxic, no distress, appears at stated age Derm: warm, dry, Head: atraumatic, normocephalic, symmetric Eyes: EOMI, no lid lag, anicteric sclera Mouth: no lip lesion, mucus membranes moist Cardiovascular: S1S2 reg, no murmur Lungs: CTA bilateral, no rhonchi, no rales , no accessory muscle use Abdominal: soft, nontender to palpation, no guarding, no appreciable organomegaly Ext: no gross muscle atrophy, no edema, no contractures Neuro: CN II-XI grossly intact, no focal neuro deficits Psych: Alert, oriented, appropriate affect Assessment/Plan: Left femur fracture s/p ORIF on 06/07/22 -ortho recs appreciated. -Pain control -ASA -Needs Pt/ot to clear on stairs. Hypertension, controlled Coronary artery disease, prior Myocardial infarction - hold ACEI due to low BP post op - metoprolol, Diuretics Dyslipidemia - statin DM II - resume metformin - SSI - A1c 7.2 Chronic: Hypothyroidism OA DVT prophylaxis: SCDs Discussed with: patient, nursing, patients family Anticipated discharge: in AM Anticipated discharge place: home with home health once/if able to do stairs. A total of 25 minutes was spent on the care of this complex patient more than 50% of the time was spent in counseling and care coordination. Active Medications Generic Name Dose Route Start Last Admin Trade Name Freq PRN Reason Stop Dose Admin Acetaminophen 650 mg 06/06/22 13:18 06/09/22 05:32 Acetaminophen Tab 325 Mg Tab PO 650 mg Q6HR PRN Administration Fever and/ or Pain Ascorbic Acid 500 mg 06/06/22 21:00 06/08/22 20:55 Ascorbic Acid 500 Mg Tab PO 500 mg HS TORSTEN Administration Aspirin 81 mg 06/08/22 09:00 06/09/22 09:57 Aspirin 81 Mg PO 81 mg DAILY TORSTEN Administration Atorvastatin Calcium 80 mg 06/06/22 21:00 06/08/22 20:55 Atorvastatin 80 Mg Tab PO 80 mg HS TORSTEN Administration Bisacodyl 5 mg 06/06/22 15:23 Bisacodyl 5 Mg Tablet.Dr PO DAILY PRN Constipation Dextrose/Water 25 ml 06/06/22 15:28 Dextrose 50% Syringe 50 Ml IVP PER PROTOCOL PRN Hypoglycemia Protocol Dextrose/Water 50 ml 06/06/22 15:28 Dextrose 50% Syringe 50 Ml IVP PER PROTOCOL PRN Hypoglycemia Protocol Ezetimibe 10 mg 06/07/22 09:00 06/09/22 09:57 Ezetimibe 10 Mg Tab PO 10 mg DAILY TORSTEN Administration HCTZ/Spironolactone 1 each 06/07/22 09:00 06/09/22 10:04 Spironolactone-Hctz 25-25mg 1 Each Tab PO 1 each DAILY TROSTEN Administration Hydromorphone HCl 0.5 mg 06/06/22 10:35 06/07/22 20:42 Hydromorphone 0.5 Mg/0.5 Ml Syringe IVP 0.5 mg Q3HR PRN Administration SEVERE Pain (Scale 7 to 10) Hydromorphone HCl 0.25 mg 06/07/22 10:46 06/07/22 13:10 Hydromorphone 0.5 Mg/0.5 Ml Syringe IVP 0.25 mg Q3HR PRN Administration Pain Scale 4 to 6 Hydromorphone HCl 0.125 mg 06/07/22 10:46 Hydromorphone 0.5 Mg/0.5 Ml Syringe IVP Q3HR PRN Pain Scale 1 to 3 Cefazolin Sodium 2 gm/ Sodium 50 mls @ 100 mls/hr 06/07/22 08:00 06/09/22 09:56 Chloride IVPB 100 mls/hr Q8HR TORSTEN Administration Protocol Insulin Aspart 0 unit 06/06/22 17:30 06/09/22 06:15 Insulin Aspart (Novolog) 100 Unit/Ml Vial SQ 1 unit ACHS [facility] Administration Protocol Levothyroxine Sodium 50 mcg 06/07/22 06:30 06/08/22 06:45 Levothyroxine 50 Mcg Tab PO 50 mcg [email or web address] TORSTEN Administration Levothyroxine Sodium 100 mcg 06/09/22 06:30 06/09/22 05:32 Levothyroxine 100 Mcg Tab PO 100 mcg [email or web address] [facility] Administration Melatonin 3 mg 06/06/22 15:23 06/07/22 20:44 Melatonin 3 Mg Tablet PO 3 mg HS PRN Administration Insomnia Metoprolol Tartrate 12.5 mg 06/06/22 21:00 06/09/22 09:57 Metoprolol Tartrate 12.5 Mg Tab PO 12.5 mg BID TORSTEN Administration Naloxone HCl 0.2 mg 06/06/22 10:35 Naloxone 0.4 Mg/Ml 1 Ml Vial IV Q2M PRN Opioid Reversal Nitroglycerin 0.4 mg 06/06/22 15:26 Nitroglycerin Sl Tabs 0.4 Mg Tab SUBLINGUAL Q5M PRN Chest Pain Non-Formulary Medication 1,000 mg 06/09/22 10:30 Metformin Hcl [Metformin Hcl] PO Q12H [facility] Ondansetron HCl 4 mg 06/06/22 10:35 Ondansetron 4 Mg/2 Ml Vial IVP Q8HR PRN Nausea And Vomiting Senna 8.6 mg 06/07/22 09:00 06/09/22 09:57 Sennosides 8.6 Mg Tab PO 8.6 mg DAILY [facility] Administration Senna/Docusate Sodium 2 each 06/07/22 21:00 06/08/22 20:56 Sennosides-Docusate Sodium 1 Each Tab PO 2 each HS [facility] Administration Tramadol HCl 50 mg 06/07/22 10:46 Tramadol 50 Mg Tab PO Q6HR PRN Pain Scale 1 to 5 Objective - Vital Signs Vital signs: Vital Signs Temp 98.6 F 06/09/22 07:16 Pulse 69 06/09/22 07:16 Resp 17 06/09/22 07:16 BP 118/73 06/09/22 07:16 Pulse Ox 94 L 06/09/22 07:16 FiO2 Intake & Output 06/08/22 06/09/22 06/09/22 18:59 06:59 18:59 Output Total 700 Balance -700 Output: Urine 700 Uretheral (Sears) 700 Other: Voiding Method Indwelling Catheter Indwelling Catheter # Voids 1 3 - Labs CBC & Chem 7: 06/07/22 17:20 06/09/22 07:57 Labs: Abnormal Lab Results - Last 24 Hours (Table) 06/08/22 06/08/22 06/08/22 Range/Units 11:28 16:39 20:41 Sodium (137-145) mmol/L Glucose (74-99) mg/dL POC Glucose (mg/dL) 277 H 229 H 240 H (70-110) mg/dL 06/09/22 06/09/22 Range/Units 06:11 07:57 Sodium 136 L (137-145) mmol/L Glucose 264 H (74-99) mg/dL POC Glucose (mg/dL) 185 H (70-110) mg/dL
[2022-06-09 11:46] LABS: Glucose,Whole Blood 207 mg/dL (70-110)
[2022-06-09] MEDS: metFORMIN 500 MG TAB PO SCH ×2 (12:24→17:08)
[2022-06-09 16:45] LABS: Glucose,Whole Blood 160 mg/dL (70-110)
[2022-06-09 20:14] VITALS: RESP 17
[2022-06-09] MEDS: ASCORBIC ACID 500 MG TAB PO SCH (20:47)
[2022-06-09] MEDS: SENNOSIDES-DOCUSATE SODIUM 1 EACH TAB PO SCH (20:47)
[2022-06-09] MEDS: ATORVASTATIN 80 MG TAB PO SCH (20:47)
[2022-06-09 20:53] LABS: Glucose,Whole Blood 169 mg/dL (70-110)
[2022-06-10] MEDS: ACETAMINOPHEN TAB 325 MG TAB PO PRN ×2 (01:25→06:55)
[2022-06-10 06:14] LABS: Glucose,Whole Blood 158 mg/dL (70-110)
[2022-06-10] MEDS: LEVOTHYROXINE 50 MCG TAB PO SCH (06:29)
[2022-06-10] MEDS: metFORMIN 500 MG TAB PO SCH (06:54)
[2022-06-10] MEDS: INSULIN ASPART (NovoLOG) 100 UNIT/ML VIAL SQ SCH ×2 (06:56→12:04)
[2022-06-10 07:26] VITALS: BP 128/76; PULSE 65; TEMP 97.5
[2022-06-10] MEDS: SENNOSIDES 8.6 MG TAB PO SCH (07:43)
[2022-06-10] MEDS: METOPROLOL TARTRATE 12.5 MG TAB PO SCH (07:43)
[2022-06-10] MEDS: ASPIRIN 81 MG PO SCH (07:43)
[2022-06-10] MEDS: SPIRONOLACTONE-HCTZ 25-25MG 1 EACH TAB PO SCH (07:44)
[2022-06-10] MEDS: EZETIMIBE 10 MG TAB PO SCH (07:44)
--- NOTE | 2022-06-10 08:20 | P.PN ---
Subjective Progress Note Date: 06/10/22 Principal diagnosis: Left Hip fracture Patient seen and examined this morning. Patient was sitting up in bed eating breakfast. Patient states that she's feeling good today. She has been ambulatory in room with walker, tolerating well. Patient is aware that she needs to perform stairs with physical therapy today. We are planning for discharge today. Surgical dressing is clean dry and intact. Patient denies any numbness tingling to bilateral lower extremities. Patient has been afebrile, denies nausea/vomiting, or chest pain. Objective - Vital Signs Vital signs: Vital Signs Temp 97.5 F L 06/10/22 07:25 Pulse 65 06/10/22 07:25 Resp 17 06/10/22 07:25 BP 128/76 06/10/22 07:25 Pulse Ox 95 06/10/22 07:25 FiO2 Intake & Output 06/09/22 06/10/22 06/10/22 18:59 06:59 18:59 Intake Total 50 Balance 50 Intake: Intake, IV Titration 50 Amount ceFAZolin 2 gm In Sodium 50 Chloride 0.9% 50 ml @ 100 mls/hr IVPB Q8HR [facility] Rx# :[id number] Other: # Voids 4 2 - Exam Inspection: Negative for any open fracture, significant erythema/ecchymosis/ulcers. Surgical dressing present over left hip, dressing CDI. Sensation: Sensation is equal, symmetric, bilaterally intact throughout the upper and lower extremities on exam. Palpation: There is a fair amount of tenderness to palpation along the left groin/left lateral hip. Nontender to palpation throughout rest of exam. Range of motion: Patient has full range of motion in right lower extremity and bilateral upper extremities on exam. Patient has full range of motion of left lower extremity in ankle dorsi/plantar flexion. There is some limited range of motion in the left knee in flexion and extension and left hip in fl exion/extension due to pain/weakness. Motor: 4/5 in resisted left hip flexion/extension and left knee flexion/extension. 5/5 in all major motor groups in bilateral upper extremities. 4+/5 in all major motor groups in right lower extremity and and right ankle dorsi/plantar flexion. Neurovascular status: Radial pulses intact, 2+ bilaterally. Capillary refill under 3 seconds in digits upper extremities. DP pulses palpable, although weak Special tests: Negative Homans bilaterally. - Labs CBC & Chem 7: 06/07/22 17:20 06/09/22 07:57 Labs: Abnormal Lab Results - Last 24 Hours (Table) 06/09/22 06/09/22 06/09/22 Range/Units 07:57 11:44 16:43 Sodium 136 L (137-145) mmol/L Glucose 264 H (74-99) mg/dL POC Glucose (mg/dL) 207 H 160 H (70-110) mg/dL 06/09/22 06/10/22 Range/Units 20:52 06:13 Sodium (137-145) mmol/L Glucose (74-99) mg/dL POC Glucose (mg/dL) 169 H 158 H (70-110) mg/dL Assessment and Plan Assessment: - Postop day #2 status post left hip ORIF percutaneous screws Left hip nondisplaced femoral neck fracture Plan: -Appreciate statistical consultant and team management. -Activity: Ambulate QID, OOB all meals, up and about, limit lifting bending twisting to less than 5 lbs. Use walker or cane if needed for stability. -Daily PT/OT, increase ambulation strength and balance. *Awaiting patient to perform stairs with PT -Pain control: Adequate at this time -Meds: reviewed -GI ppx: senna, Miralax -DVT PPX: aspirin -Hygiene: Shower today. Maintain dressing clean and dry. -Encourage IS 10x/hr -Dispo: Anticipate discharge home today with homecare Patient is cleared from Orthopedic standpoint for discharge. *I reviewed and discussed this case with my attending Dr. Batres, whom has reviewed this chart and films and is in agreement with assessment and plan of care as outlined above. I have personally seen and examined the patient, performed the documentation and the assessment and plan as written. Number of minutes spent on the visit: 15m.
[2022-06-10 11:19] LABS: Glucose,Whole Blood 178 mg/dL (70-110)
--- NOTE | 2022-06-10 11:54 | P.DS ---
Providers Date of admission: 06/06/22 10:46 Expected date of discharge: 06/10/22 Attending physician: Frank Cintron MD Consults: 06/06/22 10:35 Consult Physician Urgent Consulting Provider: Thanh Batres Consult Reason/Comments: left hip fracture Do you want consulting provider notified?: Already Contacted Primary care physician: Paulino Puente MD Hospital Course: Admitting diagnosis: left femur fracture Discharge Diagnosis: Left femur fracture s/p ORIF on 06/07/22 Hospital Course: Patient is a 77-year-old female with primary coronary infarction status post stenting, diabetes, hypertension, and dyslipidemia who presented to the emergency department with left hip pain. Apparently she had fallen 2 weeks ago and when had outpatient x-rays done which showed a left hip fracture. She has been requiring a walker to keep the weight off of her left leg. In the ER she underwent an extensive evaluation. Initial vital signs and laboratory analysis was within normal limits. Chest x-ray showed no acute process. CT hip shows probable nondisplaced subcapital fracture left femur and an osteopenic patient with cortical step off. Patient seen and examined at bedside with son present. She reports that approximately 2 weeks ago she went to visit her family. She tripped going up the stairs and landed on her left hip. Initially she was walking on a however the pain continued to get worse. She initially used a cane for one day and then a walker. Prior to that she was walking independently. She continued to have some pain in her left hip and was unable to flex at the hip but could flex at the knee. She continued to be able to walk. She went to see her primary care physician who sent her for an x-ray which showed possible fracture and she th erefore presented to the emergency department. She denies any recent cough, cold, fever, flu. She follows with Dr. Beal on a regular basis of cardiology. She is unsure of her last stress test or echo. She denies any recent chest pain or syncopal episodes. She has chronic dyspnea at baseline that she has had for years. So walking up a flight of stairs before [facility] she would get dyspneic but not have any chest pain. She is independent in her ADLs and IADLs. Physical exam: General: nontoxic, no distress, appears at stated age Derm: warm, dry, Head: atraumatic, normocephalic, symmetric Eyes: EOMI, no lid lag, anicteric sclera Mouth: no lip lesion, mucus membranes moist Cardiovascular: S1S2 reg, no murmur Lungs: CTA bilateral, no rhonchi, no rales , no accessory muscle use Abdominal: soft, nontender to palpation, no guarding, no appreciable organomegaly Ext: no gross muscle atrophy, no edema, no contractures Neuro: CN II-XI grossly intact, no focal neuro deficits Psych: Alert, oriented, appropriate affect Clinical Course: Left femur fracture s/p ORIF on 06/07/22 -ortho completed ORIF and followed -Pain control provided -ASA -Needs Pt/ot to clear on stairs. Hypertension, controlled Coronary artery disease, prior Myocardial infarction - metoprolol, Diuretics Dyslipidemia - statin DM II - resume metformin - SSI - A1c 7.2 Chronic: Hypothyroidism OA f/u with pcp within one week f/u with orthopedics in 2 weeks f/u with homecare in 24 to 48 hours Disposition home with homecare Activity as tolerated Diet Diabetic Condition Fair Patient Condition at Discharge: Stable Plan - Discharge Summary Discharge Rx Participant: Yes New Discharge Prescriptions: New Acetaminophen Tab [Tylenol] 650 mg PO Q6H #24 tab Sennosides/Docusate Sodium [Senna Plus 8.6-50 mg Softgel] 1 each PO DAILY #20 cap Continue Ascorbic Acid [Vitamin C] 500 mg PO HS Metoprolol Tartrate [Lopressor] 12.5 mg PO BID Ezetimibe [Zetia] 10 mg PO DAILY Spironolactone-Hctz 25-25Mg [Aldactazide 25-25 MG] 1 tab PO DAILY Quinapril HCl [Accupril] 40 mg PO HS Atorvastatin Calcium [Lipitor] 80 mg PO HS Aspirin EC [Ecotrin Low Dose] 81 mg PO DAILY Nitroglycerin Sl Tabs [Nitrostat] 0.4 mg SUBLINGUAL Q5M PRN PRN Reason: Chest Pain flaxseed oiL [Roe-3 Flaxseed Oil] 1,000 mg PO DAILY Levothyroxine Sodium [Synthroid] 50 mcg PO MOTUWETHFRSA Calcium 1,200mg/ Vitamin D3 125 Mcg 1 tab PO HS Acetaminophen Tab [Tylenol] 500 mg PO Q6H PRN PRN Reason: Pain Or Fever > 100.5 Levothyroxine Sodium [Synthroid] 100 mcg PO OLSEN Magnesium 250 mg PO DAILY Cholecalciferol [Vitamin D3 (25 Mcg = 1000 Iu)] 50 mcg PO DAILY metFORMIN HCL 1,000 mg PO Q12H Discharge Medication List Ascorbic Acid [Vitamin C] 500 mg PO HS 01/11/17 [History] Aspirin EC [Ecotrin Low Dose] 81 mg PO DAILY 01/11/17 [History] Atorvastatin Calcium [Lipitor] 80 mg PO HS 01/11/17 [History] Ezetimibe [Zetia] 10 mg PO DAILY 01/11/17 [History] Metoprolol Tartrate [Lopressor] 12.5 mg PO BID 01/11/17 [History] Nitroglycerin Sl Tabs [Nitrostat] 0.4 mg SUBLINGUAL Q5M PRN 01/11/17 [History] Quinapril HCl [Accupril] 40 mg PO HS 01/11/17 [History] Spironolactone-Hctz 25-25Mg [Aldactazide 25-25 MG] 1 tab PO DAILY 01/11/17 [History] flaxseed oiL [Roe-3 Flaxseed Oil] 1,000 mg PO DAILY 01/11/17 [History] Levothyroxine Sodium [Synthroid] 50 mcg PO MOTUWETHFRSA 07/21/20 [History] Acetaminophen Tab [Tylenol] 500 mg PO Q6H PRN 06/06/22 [History] Calcium 1,200mg/ Vitamin D3 125 Mcg 1 tab PO HS 06/06/22 [History] Cholecalciferol [Vitamin D3 (25 Mcg = 1000 Iu)] 50 mcg PO DAILY 06/06/22 [History] Levothyroxine Sodium [Synthroid] 100 mcg PO LOSEN 06/06/22 [History] Magnesium 250 mg PO DAILY 06/06/22 [History] metFORMIN HCL 1,000 mg PO Q12H 06/06/22 [History] Acetaminophen Tab [Tylenol] 650 mg PO Q6H #24 tab 06/10/22 [Rx] Sennosides/Docusate Sodium [Senna Plus 8.6-50 mg Softgel] 1 each PO DAILY #20 cap 06/10/22 [Rx] Follow up Appointment(s)/Referral(s): Paulino Puente MD [Primary Care Provider] - 1-2 days Thanh Batres DO [Doctor of Osteopathic Medicine] - 2 Weeks [facility] Visiting Nurse, [NON-STAFF] - As Needed Activity/Diet/Wound Care/Special Instructions: Orthopedic Discharge Instructions: -Weight bearing as tolerated LLE with assist -Ice for pain and swelling -Maintain dressing CDI. Change every day after first 3 days -PT/OT daily -GI ppx -DVT ppx for 4 weeks post op Discharge Disposition: HOME WITH HOME HEALTH SERVICES
== END 2022-06-10 12:21 | disposition home health service (06) | DRG 482 ==
LOC: OR 10:00 → 4SSUR 10:46
PROVIDERS: ADMIT Internal Medicine; ATTEND Internal Medicine
PROC: 0QS704Z Reposition Left Upper Femur with Internal Fixation Device, Open Approach (ICD-10-PCS; principal; 2022-06-07 14:15)
DX: S72.012A Unspecified intracapsular fracture of left femur, initial encounter for closed fracture (principal); I11.0 Hypertensive heart disease with heart failure; I50.9 Heart failure, unspecified; E78.5 Hyperlipidemia, unspecified; I25.10 Atherosclerotic heart disease of native coronary artery without angina pectoris; E03.9 Hypothyroidism, unspecified; M17.0 Bilateral primary osteoarthritis of knee; G89.29 Other chronic pain; W10.9XXA Fall (on) (from) unspecified stairs and steps, initial encounter; I25.2 Old myocardial infarction; Z95.5 Presence of coronary angioplasty implant and graft; Z79.890 Hormone replacement therapy; Z79.85 Long-term (current) use of injectable non-insulin antidiabetic drugs; Z79.899 Other long term (current) drug therapy; Z79.82 Long term (current) use of aspirin; Z79.84 Long term (current) use of oral hypoglycemic drugs
CPT/HCPCS: 51702; 71045; 73502; 80048; 80053; 81001; 83036; 85025; 85027; 85610; 85730; 93005; 99285

== ENCOUNTER → 2022-08-26 | Outpatient (CLI) | payer MEDICARE, BC ==
[2022-08-26 16:18] LABS: ALT 31 U/L (8-44); AST 22 U/L (13-35); Chol/HDL Ratio 2.62 Ratio; LDL Cholesterol,Calculated 58.6 mg/dL (0.0-131.0)
== END | disposition home or self-care (01) ==
LOC: LABWHC1 08:41
PROVIDERS: ATTEND Internal Medicine Cardiovascular Disease
DX: E78.2 Mixed hyperlipidemia (principal)
CPT/HCPCS: 36415; 80061; 84450; 84460

== ENCOUNTER → 2022-12-04 | Outpatient (CLI) | payer MEDICARE, BC ==
--- NOTE | 2022-12-05 08:41 | MM ---
Reason for Exam: Screening (asymptomatic). Last mammogram was performed 1 year(s) and 3 month(s) ago. Patient History: Menarche at age 14. First Full-Term at age 23. Postmenopausal. Risk Values: Carlotta 5 year model risk: 1.6%. NCI Lifetime model risk: 3.4%. Prior Study Comparison: 05/28/2019 Bilateral Diagnostic Mammogram, [facility]. 02/27/2021 Bilateral Screening Mammogram, [facility]. 09/21/2021 Bilateral Diagnostic Mammogram, [facility]. Tissue Density: The breast tissue is heterogeneously dense. This may lower the sensitivity of mammography. Findings: Analyzed By CAD. There is a new group of indeterminate calcifications far posterior left breast posterior to the nipple approximately 14 cm from the nipple. Spot magnification views in both orthogonal planes as well as a true lateral view recommended. Otherwise benign calcifications remain stable. No evidence for mass or distortion. Overall Assessment: Incomplete: need additional imaging evaluation, BI-RAD 0 Management: Diagnostic Mammogram of the left breast. . Patient should continue monthly self-breast exams. A clinical breast exam by your physician is recommended on an annual basis. This exam should not preclude additional follow-up of suspicious palpable abnormalities. Note on Carlotta scores and lifetime risk: 1. A Carlotta score greater than 3% is considered moderate risk. If this is the case, consider specialist referral to assess eligibility for a risk reducing agent. 2. If overall lifetime risk for the development of breast cancer is 20% or higher, the patient may qualify for future screening with alternating mammogram and breast MRI. Electronically signed and approved by: Zechariah Barnard M.D. Radiologis
== END | disposition home or self-care (01) ==
LOC: RADMAMWWP 08:09
PROVIDERS: ATTEND Family Medicine
DX: Z12.31 Encounter for screening mammogram for malignant neoplasm of breast (principal); Z78.0 Asymptomatic menopausal state
CPT/HCPCS: 77063; 77067

== ENCOUNTER → 2022-12-11 | Outpatient (CLI) | payer MEDICARE, BC ==
--- NOTE | 2022-12-11 09:16 | MM ---
Reason for Exam: Additional evaluation requested from abnormal screening. Last screening mammogram was performed less than 1 month ago. Patient History: Menarche at age 14. First Full-Term at age 23. Postmenopausal. Risk Values: Carlotta 5 year model risk: 1.6%. NCI Lifetime model risk: 3.4%. Prior Study Comparison: 05/13/2019 Bilateral Screening Mammogram, [facility]. 05/28/2019 Bilateral Diagnostic Mammogram, [facility]. 02/27/2021 Bilateral Screening Mammogram, [facility]. 09/21/2021 Bilateral Diagnostic Mammogram, [facility]. 12/04/2022 Bilateral MG 3D screening mammo w/cad, [facility]. Tissue Density: Left: There are scattered fibroglandular densities. Findings: Analyzed By CAD. Moles have been marked. The calcifications identified on the mammogram correlate with a minimal at the 6:00 position. Tomography confirms this superficial location. No suspicious groups of microcalcifications, spiculated or lobular masses, architectural distortion or other secondary signs of malignancy are mammographically apparent. Overall Assessment: Benign, BI-RAD 2 Management: Screening Mammogram of both breasts in 1 year. A negative mammogram report should not preclude additional follow up of suspicious palpable abnormalities. Patient should continue monthly self breast exam. A clinical breast exam by your physician is recommended on an annual basis and results should be correlated with mammographic findings. Electronically signed and approved by: Choco Carias D.O. Radiologis
== END | disposition home or self-care (01) ==
LOC: RADMAMWWP 08:11
PROVIDERS: ATTEND Family Medicine
DX: R92.8 Other abnormal and inconclusive findings on diagnostic imaging of breast (principal); Z78.0 Asymptomatic menopausal state
CPT/HCPCS: 77065; G0279; 77061

== ENCOUNTER 2023-09-05 16:45 | Emergency (ER) | payer MEDICARE, BC ==
--- NOTE | 2023-09-05 17:41 | ED ---
Abdominal Pain HPI - General Chief Complaint: Abdominal Pain Stated Complaint: Abd Pain Time Seen by Provider: 09/05/23 17:27 Source: patient, RN notes reviewed Mode of arrival: ambulatory Limitations: no limitations - History of Present Illness Initial Comments: This is a 78-year-old female who presents to the emergency department for right- sided abdominal pain. States that it started 3 to 4 days ago. She has had occasional episodes of pain in her back, however it has mostly been persistent in her abdomen. She is not nauseous, but states that her throat gets dry and she feels like she is gagging. Denies any diarrhea, constipation, or urinary c hanges. Does report a decreased appetite. She has not measured any fevers at home. She does have a history of gallstones, which have caused pain in this area before, however pain is now also in the lower abdomen in addition to the right upper quadrant. Denies any history of kidney stones or abdominal surgeries. MD Complaint: abdominal pain - Related Data Home Medications Medication Instructions Recorded Confirmed Ascorbic Acid [Vitamin C] 500 mg PO HS 01/11/17 06/06/22 Aspirin EC [Ecotrin Low Dose] 81 mg PO DAILY 01/11/17 06/06/22 Atorvastatin Calcium [Lipitor] 80 mg PO HS 01/11/17 06/06/22 Ezetimibe [Zetia] 10 mg PO DAILY 01/11/17 06/06/22 Metoprolol Tartrate [Lopressor] 12.5 mg PO BID 01/11/17 06/06/22 Nitroglycerin Sl Tabs [Nitrostat] 0.4 mg SUBLINGUAL Q5M PRN 01/11/17 06/06/22 Quinapril HCl [Accupril] 40 mg PO HS 01/11/17 06/06/22 Spironolactone-Hctz 25-25Mg 1 tab PO DAILY 01/11/17 06/06/22 [Aldactazide 25-25 MG] flaxseed oiL [[place]-3 Flaxseed Oil] 1,000 mg PO DAILY 01/11/17 06/06/22 Levothyroxine Sodium [Synthroid] 50 mcg PO [id number] 07/21/20 06/06/22 Acetaminophen Tab [Tylenol] 500 mg PO Q6H PRN 06/06/22 06/06/22 Calcium 1,200mg/ Vitamin D3 125 Mcg 1 tab PO HS 06/06/22 06/06/22 Cholecalciferol [Vitamin D3 (25 50 mcg PO DAILY 06/06/22 06/06/22 Mcg = 1000 Iu)] Levothyroxine Sodium [Synthroid] 100 mcg PO OLSEN 06/06/22 06/06/22 Magnesium 250 mg PO DAILY 06/06/22 06/06/22 metFORMIN HCL 1,000 mg PO Q12H 06/06/22 06/06/22 Previous Rx's Medication Instructions Recorded Acetaminophen Tab [Tylenol] 650 mg PO Q6H #24 tab 06/10/22 Sennosides/Docusate Sodium [Senna 1 each PO DAILY #20 cap 06/10/22 Plus 8.6-50 mg Softgel] Allergies Allergy/AdvReac Type Severity Reaction Status Date / Time No Known Allergies Allergy Verified 09/05/23 17:26 Review of Systems ROS Statement: Those systems with pertinent positive or pertinent negative responses have been documented in the HPI. ROS Other: All systems not noted in ROS Statement are negative. Past Medical History Past Medical History: Coronary Artery Disease (CAD), Diabetes Mellitus, Eye Disorder, Hyperlipidemia, Hypertension, Myocardial Infarction (NV), Osteoarthritis (OA), Thyroid Disorder Additional Past Medical History / Comment(s): NIDDM type II, cholelithiasis, arthritis bilateral knees/chronic pain, murmur with , starting of bilateral cataracts, hypothyroid. Last Myocardial Infarction Date:: 2006 History of Any Multi-Drug Resistant Organisms: None Reported Past Surgical History: Heart Catheterization With Stent, Tubal Ligation Additional Past Surgical History / Comment(s): D&C Past Anesthesia/Blood Transfusion Reactions: No Reported Reaction Date of Last Stent Placement:: 2006 Past Psychological History: No Psychological Hx Reported Smoking Status: Never smoker Past Alcohol Use History: None Reported Past Drug Use History: None Reported - Past Family History Father Family Medical History: Cancer Additional Family Medical History / Comment(s): lung cancer Mother Family Medical History: No Reported History Additional Family Medical History / Comment(s): Mother was healthy and lived to be 90yrs. General Exam Limitations: no limitations General appearance: alert, in no apparent distress Head exam: Present: atraumatic, normocephalic, normal inspection Respiratory exam: Present: normal lung sounds bilaterally. Absent: respiratory distress, wheezes, rales, rhonchi, stridor Cardiovascular Exam: Present: regular rate, normal rhythm, normal heart sounds. Absent: systolic murmur, diastolic murmur, rubs, gallop, clicks GI/Abdominal exam: Present: soft, tenderness (RUQ and RLQ). Absent: distended Neurological exam: Present: alert, oriented X3, CN II-XII intact Psychiatric exam: Present: normal affect, normal mood Skin exam: Present: warm, dry, intact, normal color. Absent: rash Course Vital Signs 09/05/23 09/05/23 17:22 21:32 Temperature 99.1 F 98.5 F Pulse Rate 102 H 82 Respiratory 20 18 Rate Blood Pressure 118/60 110/76 O2 Sat by Pulse 95 98 Oximetry Medical Decision Making - Medical Decision Making This is a 78 year old female who presents to the emergency department for abdominal pain. Was pt. sent in by a medical professional or institution? @ -No Did you speak to anyone other than the patient for history? @ -No Did you review nursing and triage notes? @ -Yes, and I agree, it is accurate with regards to the patient's symptoms. Were old charts reviewed? @ -No Differential Diagnosis? @ -Differential Abdominal Pain Women: Appendicitis, Cholecystitis, diverticulosis, ischemic bowel, pancreatitis, hepatitis, UTI, gastroenteritis, AAA, incarcerated hernia, bowel obstruction, constipation, inflammatory bowel, hepatitis, peptic ulcer disease, splenic infarction, perforated viscus, vulvitis, ovarian torsion, PID, kidney stone, placenta abruption, this is not meant to be an all-inclusive list EKG interpreted by me (3pts min.)? @ -EKG interpreted by me demonstrating the following: Sinus rhythm. Ventricular rate 88 bpm, IN interval 214 ms, QRS duration 113 ms, QTc 396 ms. X-rays interpreted by me (1pt min.)? @ -Not obtained CT interpreted by me (1pt min.)? @ -CT scan of the abdomen and pelvis obtained. My interpretation identifies gallbladder wall thickening. U/S interpreted by me (1pt. min.)? @ -Not obtained What testing was considered but not performed? (CT, X-rays, U/S, labs)? Why? @ -None What meds were considered but not given? Why? @ -None Did you discuss the management of the patient with other professionals? @ -Yes, Dr. Garcia, general surgery, who requested transfer to a facility with GI available due to elevated bilirubin. Case discussed with Dr. Mckeon at [facility] who accepts the patient for transfer. Did you reconcile home meds? @ -No Was smoking cessation discussed for >3mins.? @ -No Was critical care preformed (if so, how long)? @ -No Were there social determinants of health that impacted care today? How? (Homelessness, low income, unemployed, alcoholism, drug addiction, transportation, low edu. Level, literacy, decrease access to med. care, custodial, rehab)? @ -No Was there de-escalation of care discussed even if they declined? (Discuss DNR or withdrawal of care, Hospice)? @ -No What co-morbidities impacted this encounter? (DM, HTN, Smoking, COPD, CAD, Cancer, CVA, Hep., AIDS, mental health diagnosis, sleep apnea, morbid obesity)? @ -CAD, HTN, HLD, DM Was patient admitted / discharged? @ -Transferred. Lab work demonstrates leukocytosis with a white blood cell count of 20.6. Patient also dehydrated. Lactic acid elevated at 2.9 and bilirubin elevated at 3.8. Other LFTs are within normal limits. Bilirubin fractions obtained, and all bilirubin was unconjugated. There was no conjugated bilirubin present. Urinalysis negative for signs of infection. CT scan of the abdomen and pelvis obtained demonstrating acute cholecystitis with a 2.2 cm gallstone possibly wedged at the neck. There is no dilation of the biliary tree. Patient had a temperature of 100.2 F in the emergency department. Toradol and Tylenol administered for both the pain and fever and she was given a total of 2L bolus of IV fluids. Blood cultures were obtained and she was starte d on IV Zosyn. Maintenance fluids initiated as well. Case discussed with general surgery, who advised transfer to another facility with GI available due to the elevated bilirubin level. Case discussed with ED attending Dr. Mckeon at [facility], who accepts the patient for transfer. This will be an ED to ED transfer. Undiagnosed new problem with uncertain prognosis? @ -None Drug Therapy requiring intensive monitoring for toxicity (Heparin, Nitro, Insul in, Cardizem)? @ -None Were any procedures done? @ -None Diagnosis/symptom? @ -Acute cholecystitis, hyperbilirubinemia Acute, or Chronic, or Acute on Chronic? @ -Acute Uncomplicated (without systemic symptoms) or Complicated (systemic symptoms)? @ -Complicated Side effects of treatment? @ -None Exacerbation, Progression, or Severe Exacerbation] @ -Not applicable Poses a threat to life or bodily function? @ -Yes This case was discussed in detail with the attending ED physician, Dr. Lay. Presentation, findings, and treatment plan discussed in detail as well. - Lab Data Result diagrams: 09/05/23 17:49 09/05/23 18:13 Lab Results 09/05/23 09/05/23 09/05/23 Range/Units 17:49 17:49 18:12 WBC 20.6 H (3.8-10.6) k/uL RBC 4.39 (3.80-5.40) m/uL Hgb 13.1 (11.4-16.0) gm/dL Hct 39.5 (34.0-46.0) % MCV 90.0 (80.0-100.0) fL MCH 29.8 (25.0-35.0) pg MCHC 33.1 (31.0-37.0) g/dL RDW 13.2 (11.5-15.5) % Plt Count 274 (150-450) k/uL MPV 6.9 Neutrophils % 87 % Lymphocytes % 6 % Monocytes % 4 % Eosinophils % 1 % Basophils % 0 % Neutrophils # 18.0 H (1.3-7.7) k/uL Lymphocytes # 1.2 (1.0-4.8) k/uL Monocytes # 0.9 (0-1.0) k/uL Eosinophils # 0.2 (0-0.7) k/uL Basophils # 0.0 (0-0.2) k/uL Sodium (137-145) mmol/L Potassium (3.5-5.1) mmol/L Chloride (98-107) mmol/L Carbon Dioxide (22-30) mmol/L Anion Gap mmol/L BUN (7-17) mg/dL Creatinine (0.52-1.04) mg/dL Est GFR (CKD-EPI)AfAm (>60 ml/min/1.73 sqM) Est GFR (CKD-EPI)NonAf (>60 ml/min/1.73 sqM) Glucose (74-99) mg/dL Lactic Ac Sepsis Rflx Y Plasma Lactic Acid Pedrito 2.9 H* (0.7-2.0) mmol/L Calcium (8.4-10.2) mg/dL Total Bilirubin (0.2-1.3) mg/dL Conjugated Bilirubin (0.0-0.3) mg/dL Unconjugated Bilirubin (0.0-1.1) mg/dL Delta Bilirubin (0.0-0.2) mg/dL AST (14-36) U/L ALT (4-34) U/L Alkaline Phosphatase (38-126) U/L Total Protein (6.3-8.2) g/dL Albumin (3.5-5.0) g/dL Amylase (30-110) U/L Lipase (23-300) U/L Urine Color Urine Appearance (Clear) Urine pH (5.0-8.0) Ur Specific Jones (1.001-1.035) Urine Protein (Negative) Urine Glucose (UA) (Negative) Urine Ketones (Negative) Urine Blood (Negative) Urine Nitrite (Negative) Urine Bilirubin (Negative) Urine Urobilinogen (<2.0) mg/dL Ur Leukocyte Esterase (Negative) Urine RBC (0-5) /hpf Urine WBC (0-5) /hpf Ur Squamous Epith Cells (0-4) /hpf Ur Transition Epith Cell (0-1) /hpf Ur Renal Epithelial Cell (0) /hpf Urine Bacteria (None) /hpf Hyaline Casts (0-2) /lpf Urine Mucus (None) /hpf 09/05/23 09/05/23 09/05/23 Range/Units 18:13 18:18 19:25 WBC (3.8-10.6) k/uL RBC (3.80-5.40) m/uL Hgb (11.4-16.0) gm/dL Hct (34.0-46.0) % MCV (80.0-100.0) fL MCH (25.0-35.0) pg MCHC (31.0-37.0) g/dL RDW (11.5-15.5) % Plt Count (150-450) k/uL MPV Neutrophils % % Lymphocytes % % Monocytes % % Eosinophils % % Basophils % % Neutrophils # (1.3-7.7) k/uL Lymphocytes # (1.0-4.8) k/uL Monocytes # (0-1.0) k/uL Eosinophils # (0-0.7) k/uL Basophils # (0-0.2) k/uL Sodium 132 L (137-145) mmol/L Potassium 4.1 (3.5-5.1) mmol/L Chloride 99 (98-107) mmol/L Carbon Dioxide 22 (22-30) mmol/L Anion Gap 11 mmol/L BUN 33 H (7-17) mg/dL Creatinine 1.02 (0.52-1.04) mg/dL Est GFR (CKD-EPI)AfAm 62 (>60 ml/min/1.73 sqM) Est GFR (CKD-EPI)NonAf 54 (>60 ml/min/1.73 sqM) Glucose 189 H (74-99) mg/dL Lactic Ac Sepsis Rflx Plasma Lactic Acid Pedrito (0.7-2.0) mmol/L Calcium 9.5 (8.4-10.2) mg/dL Total Bilirubin 3.8 H 3.7 H (0.2-1.3) mg/dL Conjugated Bilirubin 0.0 (0.0-0.3) mg/dL Unconjugated Bilirubin 3.4 H (0.0-1.1) mg/dL Delta Bilirubin 0.3 H (0.0-0.2) mg/dL AST 25 (14-36) U/L ALT 24 (4-34) U/L Alkaline Phosphatase 76 (38-126) U/L Total Protein 6.4 (6.3-8.2) g/dL Albumin 3.7 (3.5-5.0) g/dL Amylase 44 (30-110) U/L Lipase 60 (23-300) U/L Urine Color Yellow Urine Appearance Cloudy H (Clear) Urine pH 5.0 (5.0-8.0) Ur Specific Jones 1.025 (1.001-1.035) Urine Protein 1+ H (Negative) Urine Glucose (UA) Negative (Negative) Urine Ketones Negative (Negative) Urine Blood Small H (Negative) Urine Nitrite Negative (Negative) Urine Bilirubin Negative (Negative) Urine Urobilinogen <2.0 (<2.0) mg/dL Ur Leukocyte Esterase Negative (Negative) Urine RBC 1 (0-5) /hpf Urine WBC 5 (0-5) /hpf Ur Squamous Epith Cells 5 H (0-4) /hpf Ur Transition Epith Cell <1 (0-1) /hpf Ur Renal Epithelial Cell <1 (0) /hpf Urine Bacteria Rare H (None) /hpf Hyaline Casts 51 H (0-2) /lpf Urine Mucus Few H (None) /hpf 09/05/23 Range/Units 20:21 WBC (3.8-10.6) k/uL RBC (3.80-5.40) m/uL Hgb (11.4-16.0) gm/dL Hct (34.0-46.0) % MCV (80.0-100.0) fL MCH (25.0-35.0) pg MCHC (31.0-37.0) g/dL RDW (11.5-15.5) % Plt Count (150-450) k/uL MPV Neutrophils % % Lymphocytes % % Monocytes % % Eosinophils % % Basophils % % Neutrophils # (1.3-7.7) k/uL Lymphocytes # (1.0-4.8) k/uL Monocytes # (0-1.0) k/uL Eosinophils # (0-0.7) k/uL Basophils # (0-0.2) k/uL Sodium (137-145) mmol/L Potassium (3.5-5.1) mmol/L Chloride (98-107) mmol/L Carbon Dioxide (22-30) mmol/L Anion Gap mmol/L BUN (7-17) mg/dL Creatinine (0.52-1.04) mg/dL Est GFR (CKD-EPI)AfAm (>60 ml/min/1.73 sqM) Est GFR (CKD-EPI)NonAf (>60 ml/min/1.73 sqM) Glucose (74-99) mg/dL Lactic Ac Sepsis Rflx Plasma Lactic Acid Pedrito 1.2 (0.7-2.0) mmol/L Calcium (8.4-10.2) mg/dL Total Bilirubin (0.2-1.3) mg/dL Conjugated Bilirubin (0.0-0.3) mg/dL Unconjugated Bilirubin (0.0-1.1) mg/dL Delta Bilirubin (0.0-0.2) mg/dL AST (14-36) U/L ALT (4-34) U/L Alkaline Phosphatase (38-126) U/L Total Protein (6.3-8.2) g/dL Albumin (3.5-5.0) g/dL Amylase (30-110) U/L Lipase (23-300) U/L Urine Color Urine Appearance (Clear) Urine pH (5.0-8.0) Ur Specific Jones (1.001-1.035) Urine Protein (Negative) Urine Glucose (UA) (Negative) Urine Ketones (Negative) Urine Blood (Negative) Urine Nitrite (Negative) Urine Bilirubin (Negative) Urine Urobilinogen (<2.0) mg/dL Ur Leukocyte Esterase (Negative) Urine RBC (0-5) /hpf Urine WBC (0-5) /hpf Ur Squamous Epith Cells (0-4) /hpf Ur Transition Epith Cell (0-1) /hpf Ur Renal Epithelial Cell (0) /hpf Urine Bacteria (None) /hpf Hyaline Casts (0-2) /lpf Urine Mucus (None) /hpf - Radiology Data Radiology results: report reviewed, image reviewed Disposition Clinical Impression: Acute cholecystitis, Hyperbilirubinemia Disposition: OTHER INSTITUTION NOT DEFINED Referrals: Paulino Puente MD [Primary Care Provider] - 1-2 days Time of Disposition: 21:12 - Out of Hospital Transfer - Req. Specs Out of Hospital Transfer - Requested Specifics: Other Emergency Center ([facility])
[2023-09-05 17:56] LABS: Basophils % (A) 0 %; Eosinophils # (A) 0.2 k/uL (0-0.7); Eosinophils % (A) 1 %; HCT 39.5 % (34.0-46.0); HGB 13.1 gm/dL (11.4-16.0); Lymphocytes # (A) 1.2 k/uL (1.0-4.8); Lymphocytes % (A) 6 %; MCH 29.8 pg (25.0-35.0); MCHC 33.1 g/dL (31.0-37.0); Mean Platelet Volume 6.9; Monocytes # (A) 0.9 k/uL (0-1.0); Monocytes % (A) 4 %; Neutrophils % (A) 87 %; Platelet Count 274 k/uL (150-450); RBC 4.39 m/uL (3.80-5.40); RDW 13.2 % (11.5-15.5); WBC 20.6 k/uL (3.8-10.6)
[2023-09-05] MEDS: SODIUM CHLORIDE 0.9% 1,000 ML IV STA ×3 (18:17→21:25)
[2023-09-05] MEDS: KETOROLAC 15 MG/ML 1 ML VIAL IVP STA (18:18)
[2023-09-05] MEDS: ACETAMINOPHEN TAB 500 MG TAB PO STA (18:23)
[2023-09-05 18:31] LABS: Appearance,Urine Cloudy (Clear); Bacteria,Urine Rare /hpf; Bilirubin,Urine Negative (Negative); Blood,Urine Small (Negative); Color,Urine Yellow; Glucose,Urine (UA) Negative (Negative); Hyaline Casts,Urine 51 /lpf (0-2); Ketones,Urine Negative (Negative); Leukocyte Esterase,Urine Negative (Negative); Mucus,Urine Few /hpf; Nitrite,Urine Negative (Negative); Protein,Urine 1+ (Negative); RBC,Urine 1 /hpf (0-5); Renal Epithelial Cells,Urine <1 /hpf (0); Specific Gravity,Urine 1.025 (1.001-1.035); Squamous Epithelial Cell,Urine 5 /hpf (0-4); Transitional Epi Cells,Urine <1 /hpf (0-1); Urobilinogen,Urine <2.0 mg/dL (<2.0); WBC,Urine 5 /hpf (0-5)
[2023-09-05 18:48] LABS: ALT 24 U/L (4-34); AST 25 U/L (14-36); African American GFR (CKD) 62 (>60 ml/min/1.73 sqM); Albumin 3.7 g/dL (3.5-5.0); Alkaline Phosphatase 76 U/L (38-126); Amylase 44 U/L (30-110); Anion Gap 11 mmol/L; Blood Urea Nitrogen 33 mg/dL (7-17); Calcium 9.5 mg/dL (8.4-10.2); Carbon Dioxide 22 mmol/L (22-30); Chloride 99 mmol/L (98-107); Glucose 189 mg/dL (74-99); Lipase 60 U/L (23-300); Non-African American GFR(CKD) 54 (>60 ml/min/1.73 sqM); Potassium 4.1 mmol/L (3.5-5.1); Sodium 132 mmol/L (137-145); Total Bilirubin 3.8 mg/dL (0.2-1.3); Total Protein 6.4 g/dL (6.3-8.2)
[2023-09-05 19:34] LABS: Bilirubin, Delta 0.3 mg/dL (0.0-0.2); Bilirubin,Unconjugated 3.4 mg/dL (0.0-1.1); Total Bilirubin 3.7 mg/dL (0.2-1.3)
--- NOTE | 2023-09-05 20:32 | CT ---
EXAMINATION TYPE: CT abdomen pelvis w con CT DLP: 1240.1 mGycm, Automated exposure control for dose reduction was used. DATE OF EXAM: 09/05/2023 7:22 PM COMPARISON: None. CLINICAL INDICATION:Female, 78 years old with history of Right sided abdominal pain; abdominal pain TECHNIQUE: Axial CT of the abdomen and pelvis. Sagittal and coronal reformats were created on a [employer] workstation. Contrast used:80ml mL of Isovue 300 with IV Contrast, (none if empty) Oral contrast used: without Oral Contrast (none if empty) FINDINGS: LOWER CHEST: Heart is mildly enlarged. Heavy calcifications of the aortic valve and coronary arteries . No pericardial effusion. Stranding in the lung bases likely scarring and/or subsegmental atelectasi s. ABDOMEN LIVER: Periportal edema. No evidence of mass. GALLBLADDER AND BILE DUCTS: Markedly abnormal appearance of the gallbladder. Peripherally calcified g allstone measuring up to 2.2 cm located at the neck. Gallbladder wall thickening, inflammatory change s, and pericholecystic fluid. No significant dilatation of the biliary tree. PANCREAS: Unremarkable. SPLEEN: Unremarkable. ADRENAL GLANDS: Thickened and small nodular appearance of the adrenals, could be due to hyperplasia a nd/or adenomatoid changes.. KIDNEYS AND URETERS: Kidneys enhance symmetrically. There is no evidence of hydronephrosis. Exophytic cyst in the posterior right kidney measures up to 3.7 cm. Other hypodensities are too small to lu cterize but likely also cysts. PELVIS BLADDER: Unremarkable REPRODUCTIVE: Uterus is present, as are the ovaries. No gross abnormality by CT. ABDOMEN & PELVIS STOMACH AND BOWEL: Stomach is nondistended. There is mild thickening of the descending duodenal wall, likely reactive. No dilated small bowel or transition point. The appendix is not seen with certaint y but there is no inflammatory process seen in the pericecal region. Moderate stool throughout redun dant colon. No focal acute abnormality is seen. PERITONEUM/RETROPERITONEUM: No evidence of pneumoperitoneum or free fluid. VASCULATURE: Moderate atherosclerotic calcifications are present throughout the abdominal aorta and i ts branches. No evidence of aortic aneurysm. Portal veins, SMV, splenic vein, renal veins are patent . LYMPH NODES: No enlarged nodes by CT size criteria. SOFT TISSUE/ABDOMINAL WALL: Unremarkable MUSCULOSKELETAL: No acute osseous abnormalities. Moderate disc degeneration changes are present throu ghout the imaged spine. Disc space loss with endplate sclerosis at L1-L2 more so than L2-L3 levels. S ignificant disc space loss L4-5 with partially calcified posterior disc bulge likely causing at least [id number] canal and neural foraminal stenoses. There is grade 1 anterolisthesis L3 on L4 whic h appears to be degenerative. Degenerative changes of the pubic symphysis and SI joints. No acute oss eous anomalies are identified. Orthopedic screws traverse the left femoral neck and terminate in the femoral head. IMPRESSION: Acute cholecystitis, with 2.2 cm gallstone possibly wedged at the neck.
[2023-09-05] MEDS: PIPERACILLIN-TAZOBACTAM 3.375 GM in SODIUM CHLORIDE 0.9% 100 ML IVPB SCH (21:24)
[2023-09-05 21:56] VITALS: BP 110/76; PULSE 82; RESP 18; TEMP 98.5
[2023-09-06] MEDS ORDERED: ACETAMINOPHEN IV (For NPO) 1,000 MG in EMPTY BAG 1 BAG IVPB PRN (01:00)
== END 2023-09-05 21:56 | disposition other institution (70) ==
LOC: EC 16:45
DX: K80.00 Calculus of gallbladder with acute cholecystitis without obstruction (principal); E80.6 Other disorders of bilirubin metabolism; I25.10 Atherosclerotic heart disease of native coronary artery without angina pectoris; I10 Essential (primary) hypertension; E78.5 Hyperlipidemia, unspecified; E11.36 Type 2 diabetes mellitus with diabetic cataract; Z79.84 Long term (current) use of oral hypoglycemic drugs; Z79.82 Long term (current) use of aspirin; Z79.899 Other long term (current) drug therapy
CPT/HCPCS: 36415; 93005; 80053; 82150; 82248; 83605; 83690; 85025; 81001; 87040; 74177; 99285; 96365; 96375; 96361 ×2; J2543; J1885; Q9967

== ENCOUNTER → 2023-09-26 | Outpatient (CLI) | payer MEDICARE, BC ==
[2023-09-26 14:42] LABS: ALT 14 U/L (8-44); AST 18 U/L (13-35); LDL Cholesterol,Calculated 38.6 mg/dL (0.0-131.0)
== END | disposition home or self-care (01) ==
LOC: LABWHC1 08:06
PROVIDERS: ATTEND Internal Medicine Cardiovascular Disease
DX: E78.2 Mixed hyperlipidemia (principal)
CPT/HCPCS: 36415; 80061; 84450; 84460

== ENCOUNTER → 2024-01-28 | Outpatient (CLI) | payer MEDICARE, BC ==
--- NOTE | 2024-02-01 11:58 | MM ---
Reason for Exam: Screening (asymptomatic). Last mammogram was performed 1 year(s) and 2 month(s) ago. Patient History: Menarche at age 14. First Full-Term at age 23. Postmenopausal. Risk Values: Carlotta 5 year model risk: 1.6%. NCI Lifetime model risk: 3.0%. Prior Study Comparison: 09/21/2021 Bilateral Diagnostic Mammogram, [facility]. 12/04/2022 Bilateral MG 3D screening mammo w/cad, [facility]. 12/11/2022 Left MG 3D work up w/cad LT, [facility]. Tissue Density: There are scattered areas of fibroglandular density. Findings: Analyzed By CAD. Right breast: There is no suspicious group of microcalcifications or new suspicious mass. Benign-appearing calcifications right breast. Left breast: There is no suspicious group of microcalcifications or new suspicious mass. Benign-appearing calcifications left breast. Overall Assessment: Benign, BI-RAD 2 Management: Screening Mammogram of both breasts in [address] [facility] will attempt to contact patient to return for supplemental views and ultrasound if indicated. Patient should continue monthly self-breast exams. A clinical breast exam by your physician is recommended on an annual basis. This exam should not preclude additional follow-up of suspicious palpable abnormalities. Note on Carlotta scores and lifetime risk: 1. A Carlotta score greater than 3% is considered moderate risk. If this is the case, consider specialist referral to assess eligibility for a risk reducing agent. 2. If overall lifetime risk for the development of breast cancer is 20% or higher, the patient may qualify for future screening with alternating mammogram and breast MRI. Electronically signed and approved by: Rod Ramos DO
== END | disposition home or self-care (01) ==
LOC: RADMAMWWP 08:59
PROVIDERS: ATTEND Family Medicine
DX: Z12.31 Encounter for screening mammogram for malignant neoplasm of breast
CPT/HCPCS: 77063; 77067

== ENCOUNTER → 2024-09-24 | Outpatient (CLI) | payer MEDICARE, BC ==
[2024-09-24 15:43] LABS: ALT 28 U/L (8-44); AST 24 U/L (13-35); Chol/HDL Ratio 3.04 Ratio; LDL Cholesterol,Calculated 72.1 mg/dL (0.0-131.0)
== END | disposition home or self-care (01) ==
LOC: LABWHC1 08:46
PROVIDERS: ATTEND Internal Medicine Cardiovascular Disease
DX: E78.2 Mixed hyperlipidemia (principal)
CPT/HCPCS: 36415; 80061; 84450; 84460